=== PATIENT | male | born 1945 | race Caucasian/White ===

== ENCOUNTER 2016-12-17 19:00 | Inpatient (IN) | payer MEDICARE, BC ==
[2016-12-17] MEDS ORDERED: oxyCODONE/Acetaminophen 5 mg/325 mg Tablet PO SCH (21:30)
[2016-12-17] MEDS ORDERED: Ondansetron ODT 4 MG TAB SL PRN (23:22)
[2016-12-17] MEDS ORDERED: oxyCODONE/Acetaminophen 5 mg/325 mg Tablet PO PRN (23:22)
[2016-12-17] MEDS ORDERED: HYDROcodone/Acetaminophen 5/325 mg Tablet PO PRN ×2 (23:22)
[2016-12-17] MEDS ORDERED: Acetaminophen 325 MG TAB PO PRN (23:22)
[2016-12-17] MEDS ORDERED: Ondansetron HCl/PF 4 MG/2 ML Vial IVP PRN (23:22)
[2016-12-17 23:38] VITALS: BMI 34.2
[2016-12-18] MEDS ORDERED: Acetaminophen 325 MG TAB PO PRN ×2 (04:14)
[2016-12-18] MEDS ORDERED: Ondansetron ODT 4 MG TAB PO PRN (04:14)
[2016-12-18] MEDS ORDERED: PROVENTIL INHALER 6.7 G (200 INHALATIONS) INH PRN (04:14)
[2016-12-18] MEDS ORDERED: Ondansetron HCl/PF 4 MG/2 ML Vial IVP PRN (04:14)
--- NOTE | 2016-12-18 05:57 | HP ---
PRIMARY CARE PHYSICIAN: Dr. Porsche Berman CHIEF COMPLAINT: \\\\"My legs are swelling and I can't walk\\\\". HISTORY OF PRESENT ILLNESS: Mr. Lugo is a pleasant 71-year-old gentleman that has a history of an ischemic cardiomyopathy with an ejection fraction of 25% as well as coronary artery disease, obstru ctive sleep apnea and morbid obesity. He was actually just recently released from the hospital on 0 11/26/2016 for an exacerbation of CHF. He says when he left the hospital, he was not feeling the gre atest, but he was feeling better than when he came in and he was doing fairly well until about a wee k prior to admission when he began noticing swelling in his legs and feeling off balance. He says t hat he could not walk. He had previously been walking with a walker, but now was having extreme dif ficulty. He denies having chest pain, however, but does note increasing shortness of breath. He ca me to the emergency room because of his symptoms and his lab work looked relatively stable and his c hest x-ray demonstrated some cardiomegaly, but no overt heart failure. However, he has had some low er extremity edema and for this reason he is being admitted for CHF exacerbation. REVIEW OF SYSTEMS: CONSTITUTIONAL: There have been no fevers, chills, no night sweats, no weight loss. HEENT: No headache, no dizziness, no visual changes, no sore throat, rhinorrhea, neck pain, no rosalee opathy. PULMONARY: No hemoptysis, no cough, no wheezing. CARDIOVASCULAR: He denies any chest pain or PND. He has had increasing lower extremity edema. GASTROINTESTINAL: He denies any nausea, no vomiting, no change in bowels. GENITOURINARY: No urinary frequency, hematuria, no hesitancy. NEUROLOGIC: No focal weakness, numbness, no seizures. PSYCHIATRIC: No symptoms of anxiety or depression. SKIN AND INTEGUMENT: No skin changes. No rash. PAST MEDICAL HISTORY: Significant for ischemic cardiomyopathy with an ejection fraction of 25%, cor onary artery disease, obesity, obstructive sleep apnea, anxiety, and BPH. 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 ALLERGIES: VANCOMYCIN, BUDESNOMIDE, DOXYCYCLINE, FORMETEROL, LYRICA, PEROXIDE, LISINOPRIL, STATINS. FAMILY HISTORY: No history of any inheritable diseases. CURRENT MEDICATIONS: Trazodone 100 mg at bedtime, oxycodone 10/325 one q.4. p.r.n., torsemide 20 m g twice a day, Flomax 0.4 mg at bedtime, Klor-Con 20 mEq daily, Livalo 2 mg daily, Cozaar 50 mg at b edtime, albuterol nebs q.i.d., fenofibrate 145 mg daily, Zetia 10 mg daily, Cymbalta 30 mg twice vanesa ly, Coreg 25 mg twice a day, aspirin 325 mg daily, albuterol 2 puffs p.r.n. PHYSICAL EXAMINATION: GENERAL: He is alert. He is somewhat drowsy; however, he will awake long enough to answer a few qu estions, but then falls right back to sleep. VITAL SIGNS: Blood pressure was 155/87, heart rate 84, respiratory rate of 20, temperature is 98.8. HEENT: His pupils are equal, round, and reactive. Extraocular muscles are intact. His sclerae are anicteric. Throat; no erythema, no exudates. NECK: No adenopathy, no bruits. LUNGS: Essentially clear. There is no wheezing, no rales. CARDIOVASCULAR: He has a normal S1, S2. He has frequent PVCs, almost sounds like group beating wit h a grade 2/6 systolic murmur. ABDOMEN: Obese, it is soft, it is nontender, nondistended. Positive for bowel sounds. No rebound, no guarding. EXTREMITIES: He has got 1-2+ pitting edema, some varicose veins in his lower extremities. NEUROLOGICALLY: The exam is nonfocal. LABORATORY AND X-RAY FINDINGS: His EKG is sinus rhythm, the rate is in the 70s, he has a right bund le branch block, as well as a left anterior fascicular block and left ventricular hypertrophy. Ches t x-ray shows cardiomegaly as well as some increasing pulmonary vascular congestion. ASSESSMENT AND PLAN: Mr. Lugo is a 71-year-old gentleman who is being admitted for generalized we akness and increasing lower extremity edema. Likely his weakness is multifactorial due to the conge stive heart failure exacerbation, generalized deconditioning and obesity. He will be admitted to [facility]. We will continue his home medications and reassess him after he has had some treatment for his heart failure.
[2016-12-18] MEDS ORDERED: Furosemide 40 MG/4 ML VIAL SLOW IVP SCH (06:00)
[2016-12-18] MEDS: Aspirin 325 MG TAB PO SCH (08:49)
[2016-12-18] MEDS: Ezetimibe 10 MG TAB PO SCH (08:49)
[2016-12-18] MEDS: HYDROcodone/Acetaminophen 5/325 mg Tablet PO PRN ×2 (08:49→14:15)
[2016-12-18] MEDS: Carvedilol 25 MG TAB PO SCH ×2 (08:50→16:09)
[2016-12-18] MEDS: Enoxaparin Sodium 40 MG/0.4 ML SYRINGE SC SCH (08:50)
[2016-12-18] MEDS: Fenofibrate Nanocrystallized 145 MG TAB PO SCH (08:50)
[2016-12-18] MEDS ORDERED: PITAVASTATIN CALCIUM 2 MG PO SCH (09:00)
[2016-12-18] MEDS ORDERED: FLU VACC TS2017-18 (>65YR) 0.5 ML SYRINGE IM ONE (09:00)
[2016-12-18] MEDS: Furosemide 40 MG/4 ML VIAL SLOW IVP SCH ×2 (14:15→20:44)
[2016-12-18] MEDS ORDERED: oxyCODONE/Acetaminophen 5 mg/325 mg Tablet PO PRN (16:39)
--- NOTE | 2016-12-18 16:58 | PDOC.EVN ---
Event Note - Event Note Event Note: pt seen and examined. is SOB. will increase lasix dose. mmonitor symptoms and get cardio consult if needed
[2016-12-18] MEDS: Tamsulosin HCl 0.4 MG CAP PO SCH (20:41)
[2016-12-18] MEDS: Losartan Potassium 25 MG TAB PO SCH (20:41)
[2016-12-18] MEDS: traZODone HCl 50 MG TAB PO SCH (20:41)
[2016-12-18] MEDS: clonazePAM 1 MG TAB PO SCH (20:43)
[2016-12-19 05:15] LABS: #Eosinphils 0.1 thou/uL (0.0-0.7); #Lymphocytes 1.3 thou/uL (1.20-3.40); #Monocytes 0.6 thou/uL (0.11-0.59); #Neutrophils 3.4 thou/uL (1.40-6.50); %Basophils 0.5 % (0.0-1.0); %Eosinophils 2.5 % (0.0-10.0); %Lymphocytes 23.4 % (21.0-51.0); Hematocrit 40.4 % (42.0-52.0); Mean Platelet Volume 7.8 fL (7.4-10.4); Red Blood Cell (RBC) Count 4.47 mill/uL (4.70-6.10); White Blood Cell (WBC) Count 5.4 thou/uL (4.8-10.8)
[2016-12-19 05:31] LABS: Anion Gap 13 mmol/L (10-20); BUN (Urea Nitrogen) 20 mg/dL (8.4-25.7); Calc. Creatinine Clearance 112 mL/min (70-130); Calcium 9.7 mg/dL (7.8-10.44); Carbon Dioxide 29 mmol/L (23-31); Chloride 103 mmol/L (98-107); Estimated GFR-MDRD 69
[2016-12-19] MEDS: HYDROcodone/Acetaminophen 5/325 mg Tablet PO PRN ×3 (06:09→19:36)
[2016-12-19] MEDS: Furosemide 40 MG/4 ML VIAL SLOW IVP SCH ×3 (06:09→21:02)
[2016-12-19] MEDS: Aspirin 325 MG TAB PO SCH (08:39)
[2016-12-19] MEDS: Carvedilol 25 MG TAB PO SCH ×2 (08:39→16:27)
[2016-12-19] MEDS: Ezetimibe 10 MG TAB PO SCH (08:39)
[2016-12-19] MEDS: clonazePAM 1 MG TAB PO SCH ×2 (08:39→20:16)
[2016-12-19] MEDS: Fenofibrate Nanocrystallized 145 MG TAB PO SCH (08:39)
[2016-12-19] MEDS: Enoxaparin Sodium 40 MG/0.4 ML SYRINGE SC SCH (08:40)
[2016-12-19 10:41] LABS: Troponin I 0.054 ng/mL (< 0.028)
--- NOTE | 2016-12-19 13:43 | PDOC.PN ---
- Subjective Encounter Start Date: 12/19/16 Encounter Start Time: 09:00 Subjective: pt c/o diffuse body ache, especially in his back -: he looks less tachypneic -: he is on high dose of two kinds of opioids at home requesting RTC opioids as per RN - Objective Resuscitation Status: Resuscitation Status FULL:Full Resuscitation MAR Reviewed: Yes Vital Signs & Weight: Vital Signs (12 hours) Temp Pulse Pulse Pulse Resp BP BP 12/19/16 13:35 12/19/16 13:33 77 16 12/19/16 11:49 97.8 F 85 19 12/19/16 11:13 97.6 F 84 18 12/19/16 10:44 79 74 122/72 111/59 L 12/19/16 08:00 97.6 F 84 18 12/19/16 04:00 97.6 F 18 BP Pulse Ox 12/19/16 13:35 98 12/19/16 13:33 98 12/19/16 11:49 125/70 95 12/19/16 11:13 97 12/19/16 10:44 12/19/16 08:00 136/71 97 12/19/16 04:00 111/63 91 L Weight Admit Weight 267 lb Weight 265 lb 3 oz I&O: 12/18/16 12/19/16 12/20/16 06:59 06:59 06:59 Intake Total 500 400 Output Total 750 400 Balance -250 0 Result Diagrams: 12/19/16 04:12 12/19/16 04:12 EKG Reviewed by me: Yes Phys Exam - Physical Examination HEENT: PERRLA, moist MMs, sclera anicteric Respiratory: no wheezing b/ l crackles, improved Cardiovascular: RRR, no significant murmur, no rub Gastrointestinal: soft, non-tender, no distention, positive bowel sounds Musculoskeletal: edema present edema improved Neurological: non-focal, moves all 4 limbs b/l UE tremors present Psychiatric: A&O x 3 Skin: no rash Dx/Plan (1) Elevated troponin Code(s): R74.8 - ABNORMAL LEVELS OF OTHER SERUM ENZYMES Status: Acute (2) Opioid dependence Code(s): F11.20 - OPIOID DEPENDENCE, UNCOMPLICATED Status: Acute (3) CAD (coronary artery disease) Code(s): I25.10 - ATHSCL HEART DISEASE OF [place] CORONARY ARTERY W/O ANG PCTRS Status: Acute (4) Hypokalemia Code(s): E87.6 - HYPOKALEMIA Status: Acute (5) Systolic CHF, acute on chronic Code(s): I50.23 - ACUTE ON CHRONIC SYSTOLIC (CONGESTIVE) HEART FAILURE Status : Acute (6) Dyslipidemia Code(s): E78.5 - HYPERLIPIDEMIA, UNSPECIFIED Status: Chronic Comment: Continue Fenofibrate (7) GERD (gastroesophageal reflux disease) Code(s): K21.9 - GASTRO-ESOPHAGEAL REFLUX DISEASE WITHOUT ESOPHAGITIS Status: Chronic Comment: Continue Protonix 40mg po daily (8) Pill rolling tremors Code(s): R25.1 - TREMOR, UNSPECIFIED Status: Acute - Plan * . we will continue with current dose of lasix. will replace potassium. will get cardio consult. cont with present opioid regimen and monitor resp status closley. will get neuro consult for tremors. PT as tolerated
[2016-12-19] MEDS: Potassium Bicarbonate/Cit Ac 25 MEQ TAB PO SCH (16:32)
--- NOTE | 2016-12-19 17:35 | CON ---
DATE OF CONSULTATION: 12/19/2016 HISTORY OF PRESENT ILLNESS: The patient is a pleasant 71-year-old gentleman who presented with weak ness and dyspnea. Patient has a long history of coronary artery disease, status post coronary bypas s graft x3 in 2003. He has a history of ischemic cardiomyopathy and had placement of an automatic i mplantable cardiac defibrillator. He also has a history of defibrillator becoming infected. The sue thomas has been in the hospital on multiple occasions with congestive heart failure. He was most rec ently admitted 2 months ago with dyspnea. The patient previously had two stents placed recently at [facility]. The patient was in his usual state of health when he noted feeling extremely weak and short of breath and came for further evaluation. The patient denies having any chest discomfort . PAST MEDICAL HISTORY: Significant for; 1. Coronary artery disease. 2. Ischemic cardiomyopathy. 3. Hypertension. 4. Sleep apnea. 5. Dyslipidemia. 6. Benign prostatic hypertrophy. PAST SURGICAL HISTORY: He has had hernia surgery, cholecystectomy, iliac arterial aneurysm surgery and coronary bypass graft surgery. SOCIAL HISTORY: Nonsmoker. ALLERGIES: VANCOMYCIN, DOXYCYCLINE, LYRICA, LISINOPRIL, STATINS, PEROXIDE, DOXYCYCLINE and BUDESON YEFRI. FAMILY HISTORY: Positive family history of coronary artery disease. His father had myocardial infa rction. MEDICATIONS ON ADMISSION: Include Coreg 25 b.i.d., aspirin 325 daily, Cymbalta 30 daily, Cozaar 50 daily, KCL 20 daily, Flomax 0.4 daily, trazodone 100 mg at bedtime and Demadex 20 mg p.o. daily. REVIEW OF SYSTEMS: Ten-point system is noticeable for weakness and edema, otherwise unremarkable. PHYSICAL EXAMINATION: GENERAL: This is a middle-aged gentleman in no acute distress. VITAL SIGNS: Blood pressure was 111/59. NECK: No jugular venous distention. LUNGS: Coarse breath sounds bilateral. HEART: Regular rate and rhythm. Normal S1 and S2. ABDOMEN: Mildly distended. EXTREMITIES: Showed trace edema. SKIN: Warm and dry. NEUROLOGIC: Nonfocal. VASCULAR: Radial pulses are 2+. LABORATORY RESULTS: Sodium 142, potassium 3.3, chloride 103, bicarbonate 29, BUN 20, creatinine 0.1 07, glucose was 69 and troponin 0.054. White blood cell count 5.4, hemoglobin 12.9, hematocrit 40.4 and his platelets were 141. IMAGING DATA: EKG revealed normal sinus rhythm, right bundle branch block and left anterior fascicu lar block. IMPRESSION: 1. Congestive heart failure. 2. Ischemic cardiomyopathy. 3. Hypertension. 4. Morbid obesity. 5. Sleep apnea. 6. History of automatic implantable cardioverter-defibrillator placement. 7. Dyslipidemia. PLAN: This gentleman presents with mild congestive heart failure. He is being diuresed. We will f ollow this patient with you through his hospitalization.
[2016-12-19] MEDS: Tamsulosin HCl 0.4 MG CAP PO SCH (20:15)
[2016-12-19] MEDS: Losartan Potassium 25 MG TAB PO SCH (20:15)
[2016-12-19] MEDS: traZODone HCl 50 MG TAB PO SCH (20:16)
[2016-12-20] MEDS: HYDROcodone/Acetaminophen 5/325 mg Tablet PO PRN ×2 (04:39→14:27)
[2016-12-20] MEDS: Furosemide 40 MG/4 ML VIAL SLOW IVP SCH (05:15)
[2016-12-20] MEDS: clonazePAM 1 MG TAB PO SCH ×2 (09:13→20:22)
[2016-12-20] MEDS: Aspirin 325 MG TAB PO SCH (09:13)
[2016-12-20] MEDS: Carvedilol 25 MG TAB PO SCH ×2 (09:14→16:39)
[2016-12-20] MEDS: Potassium Bicarbonate/Cit Ac 25 MEQ TAB PO SCH ×2 (09:14→17:08)
[2016-12-20] MEDS: Fenofibrate Nanocrystallized 145 MG TAB PO SCH (09:15)
[2016-12-20] MEDS: Enoxaparin Sodium 40 MG/0.4 ML SYRINGE SC SCH (09:17)
[2016-12-20] MEDS: Ezetimibe 10 MG TAB PO SCH (09:17)
[2016-12-20 10:43] LABS: #Eosinphils 0.1 thou/uL (0.0-0.7); #Lymphocytes 0.9 thou/uL (1.20-3.40); #Monocytes 0.4 thou/uL (0.11-0.59); #Neutrophils 2.4 thou/uL (1.40-6.50); %Basophils 0.3 % (0.0-1.0); %Eosinophils 3.5 % (0.0-10.0); %Lymphocytes 23.2 % (21.0-51.0); %Monocytes 9.7 % (0.0-10.0); Hematocrit 39.3 % (42.0-52.0); Mean Platelet Volume 7.8 fL (7.4-10.4); Red Blood Cell (RBC) Count 4.32 mill/uL (4.70-6.10); White Blood Cell (WBC) Count 3.8 thou/uL (4.8-10.8)
[2016-12-20 11:00] LABS: Anion Gap 14 mmol/L (10-20); BUN (Urea Nitrogen) 20 mg/dL (8.4-25.7); Calc. Creatinine Clearance 120 mL/min (70-130); Calcium 9.5 mg/dL (7.8-10.44); Carbon Dioxide 29 mmol/L (23-31); Chloride 100 mmol/L (98-107); Estimated GFR-MDRD 77
[2016-12-20] MEDS ORDERED: Carbidopa/Levodopa 25-100 mg Tablet PO SCH (11:30)
--- NOTE | 2016-12-20 13:22 | PDOC.PN ---
- Subjective Encounter Start Date: 12/20/16 Encounter Start Time: 11:00 Subjective: pt states SOB better -: cardio input appreciated .pt states SOB better -: still has tremors, feels weak - Objective Resuscitation Status: Resuscitation Status FULL:Full Resuscitation Vital Signs & Weight: Vital Signs (12 hours) Temp Pulse Resp BP Pulse Ox 12/20/16 08:00 97.6 F 90 18 115/59 L 98 12/20/16 04:00 97.2 F L 73 18 128/68 95 12/20/16 01:53 94 L Weight Admit Weight 267 lb Weight 260 lb 3.2 oz I&O: 12/19/16 12/20/16 12/21/16 06:59 06:59 06:59 Intake Total 400 1985 Output Total 400 2260 Balance 0 -275 Result Diagrams: 12/20/16 10:21 12/20/16 10:21 Phys Exam - Physical Examination HEENT: PERRLA, moist MMs, sclera anicteric Neck: no nodes Respiratory: no wheezing, no rales, no rhonchi Gastrointestinal: soft, non-tender, no distention, positive bowel sounds Musculoskeletal: edema present Neurological: non-focal b/l UE pill rolling tremors unchanged Psychiatric: A&O x 3 Skin: no rash Dx/Plan (1) Elevated troponin Code(s): R74.8 - ABNORMAL LEVELS OF OTHER SERUM ENZYMES Status: Acute (2) Opioid dependence Code(s): F11.20 - OPIOID DEPENDENCE, UNCOMPLICATED Status: Acute (3) CAD (coronary artery disease) Code(s): I25.10 - ATHSCL HEART DISEASE OF [place] CORONARY ARTERY W/O ANG PCTRS Status: Acute (4) Hypokalemia Code(s): E87.6 - HYPOKALEMIA Status: Acute (5) Systolic CHF, acute on chronic Code(s): I50.23 - ACUTE ON CHRONIC SYSTOLIC (CONGESTIVE) HEART FAILURE Status : Acute (6) Dyslipidemia Code(s): E78.5 - HYPERLIPIDEMIA, UNSPECIFIED Status: Chronic Comment: Continue Fenofibrate (7) GERD (gastroesophageal reflux disease) Code(s): K21.9 - GASTRO-ESOPHAGEAL REFLUX DISEASE WITHOUT ESOPHAGITIS Status: Chronic Comment: Continue Protonix 40mg po daily (8) Pill rolling tremors Code(s): R25.1 - TREMOR, UNSPECIFIED Status: Acute - Plan we will switch lasix to PO -: awiat neuro eval. may need rehab -: monitor potassium and replace * .
[2016-12-20] MEDS: Furosemide 40 MG TAB PO SCH (13:33)
--- NOTE | 2016-12-20 16:38 | PDOC.CTH ---
<Samantha De La Cruz - Last Filed: 12/20/16 16:34> Cardiology Progress Note - Subjective The pt was seen and examined. No overnight events. No cardiac complaints. He complains of Chronic back pain. - Objective Vital Signs Temp Pulse Resp BP BP Pulse Ox 12/20/16 16:28 97.8 F 78 18 115/74 93 L 12/20/16 12:15 98.4 F 78 18 133/57 L 98 12/20/16 08:00 97.6 F 90 18 115/59 L 98 Admit Weight 267 lb Weight 260 lb 3.2 oz 12/19/16 12/20/16 12/21/16 06:59 06:59 06:59 Intake Total 400 1985 Output Total 400 2260 Balance 0 -275 - Physical Examination General/Neuro: alert & oriented x3 Neck: no JVD present Lungs: CTA Heart: RRR Abdomen: soft Extremities: other: (No edema) - Telemetry Telemetry Rhythm: SR 70s - Labs Result Diagrams: 12/20/16 10:21 12/20/16 10:21 Troponin/CKMB CK-MB (CK-2) 2.4 ng/mL (0-6.6) 12/17/16 19:40 Troponin I 0.054 ng/mL (< 0.028) H 12/19/16 10:04 - Assessment/Plan 1. Acute on Chronic systolic HF - stable with current medication; On 1LNC; Lasix was changed from IV to PO; cont. monitor 2. CAD with Hx of CABG x3 in 2004 - on BBlocker and ASA; cont. monitor on tele 3. HTN - stable with current medication 4. Dyslipidemia - on statin and Zetia 5. GERD - On Protonix PO 6. Chronic Back pain - PT/OT consult; managed by PCP MAR reviewed Review of Systems - Review of Systems Constitutional: reports: no symptoms reported EENTM: reports: no symptoms reported Respiratory: reports: SOB with excertion Cardiac (ROS): reports: no symptoms reported ABD/GI: reports: no symptoms reported : reports: no symptoms reported, see HPI Musculoskeletal: reports: back pain <Altaf Kruger - Last Filed: 12/20/16 20:03> Cardiology Progress Note - Objective Vital Signs Temp Pulse Resp BP BP Pulse Ox 12/20/16 16:28 97.8 F 78 18 115/74 93 L 12/20/16 12:15 98.4 F 78 18 133/57 L 98 Admit Weight 267 lb Weight 260 lb 3.2 oz 12/19/16 12/20/16 12/21/16 06:59 06:59 06:59 Intake Total 400 1985 Output Total 400 2260 380 Balance 0 -275 -380 - Labs Result Diagrams: 12/20/16 10:21 12/20/16 10:21 Troponin/CKMB CK-MB (CK-2) 2.4 ng/mL (0-6.6) 12/17/16 19:40 Troponin I 0.054 ng/mL (< 0.028) H 12/19/16 10:04 - Assessment/Plan Pt. seen and evaluated. i agree with the A/P by the SCRAP SEPARATOR. The only complaint is from the family that he has not received his nebulizer treatments ond his clonipin.
[2016-12-20] MEDS: Losartan Potassium 25 MG TAB PO SCH (20:21)
[2016-12-20] MEDS: Carbidopa/Levodopa 25-100 mg Tablet PO SCH (20:21)
[2016-12-20] MEDS: traZODone HCl 50 MG TAB PO SCH (20:22)
[2016-12-20] MEDS: Tamsulosin HCl 0.4 MG CAP PO SCH (20:22)
[2016-12-21] MEDS: HYDROcodone/Acetaminophen 5/325 mg Tablet PO PRN (03:35)
[2016-12-21] MEDS: Aspirin 325 MG TAB PO SCH (09:22)
[2016-12-21] MEDS: Ezetimibe 10 MG TAB PO SCH (09:22)
[2016-12-21] MEDS: Fenofibrate Nanocrystallized 145 MG TAB PO SCH (09:22)
[2016-12-21] MEDS: Carvedilol 25 MG TAB PO SCH ×2 (09:23→17:59)
[2016-12-21] MEDS: Potassium Bicarbonate/Cit Ac 25 MEQ TAB PO SCH ×2 (09:24→18:00)
[2016-12-21] MEDS: Furosemide 40 MG TAB PO SCH ×2 (09:24→13:55)
[2016-12-21] MEDS: Carbidopa/Levodopa 25-100 mg Tablet PO SCH ×2 (09:24→20:27)
[2016-12-21] MEDS: clonazePAM 1 MG TAB PO SCH ×2 (09:24→20:28)
[2016-12-21] MEDS: Enoxaparin Sodium 40 MG/0.4 ML SYRINGE SC SCH (09:25)
[2016-12-21] MEDS: PITAVASTATIN CALCIUM 2 MG PO SCH (09:26)
--- NOTE | 2016-12-21 10:13 | PDOC.PN ---
- Subjective Encounter Start Date: 12/21/16 Encounter Start Time: 09:05 Subjective: pt is c/o diffuse pain. SOB improved -: service delivery management consultant input appreciated -: able to abmbulate but still tremulous - Objective Resuscitation Status: Resuscitation Status FULL:Full Resuscitation Vital Signs & Weight: Vital Signs (12 hours) Temp Pulse Resp BP Pulse Ox 12/21/16 04:00 97.6 F 62 20 94/54 L 97 12/21/16 00:25 92 L 12/21/16 00:00 97.7 F 76 18 128/58 L 97 Weight Admit Weight 267 lb Weight 259 lb 4.8 oz I&O: 12/20/16 12/21/16 12/22/16 06:59 06:59 06:59 Intake Total 1985 820 Output Total 2260 930 Balance -275 -110 Result Diagrams: 12/20/16 10:21 12/20/16 10:21 Phys Exam - Physical Examination HEENT: PERRLA, moist MMs Respiratory: no wheezing, no rales Cardiovascular: RRR, no significant murmur, no rub Gastrointestinal: soft, non-tender, no distention, positive bowel sounds Musculoskeletal: no edema Neurological: non-focal, moves all 4 limbs tremor unchanged Psychiatric: A&O x 3 Skin: no rash Dx/Plan (1) Elevated troponin Code(s): R74.8 - ABNORMAL LEVELS OF OTHER SERUM ENZYMES Status: Acute (2) Opioid dependence Code(s): F11.20 - OPIOID DEPENDENCE, UNCOMPLICATED Status: Acute (3) CAD (coronary artery disease) Code(s): I25.10 - ATHSCL HEART DISEASE OF [place] CORONARY ARTERY W/O ANG PCTRS Status: Acute (4) Hypokalemia Code(s): E87.6 - HYPOKALEMIA Status: Acute (5) Systolic CHF, acute on chronic Code(s): I50.23 - ACUTE ON CHRONIC SYSTOLIC (CONGESTIVE) HEART FAILURE Status : Acute (6) Dyslipidemia Code(s): E78.5 - HYPERLIPIDEMIA, UNSPECIFIED Status: Chronic Comment: Continue Fenofibrate (7) GERD (gastroesophageal reflux disease) Code(s): K21.9 - GASTRO-ESOPHAGEAL REFLUX DISEASE WITHOUT ESOPHAGITIS Status: Chronic Comment: Continue Protonix 40mg po daily (8) Pill rolling tremors Code(s): R25.1 - TREMOR, UNSPECIFIED Status: Acute - Plan will continue with meds. PT to ambulate. -: pt has chr pain, on multiple narcotics. -: advised to see outpt pain specialist for adjustment of narcotics -: continue sinemet for tremors and monitor response * .
[2016-12-21] MEDS: oxyCODONE/Acetaminophen 5 mg/325 mg Tablet PO PRN (15:31)
--- NOTE | 2016-12-21 18:49 | PDOC.CTH ---
<Samantha De La Cruz - Last Filed: 12/21/16 18:46> Cardiology Progress Note - Subjective The pt was seen and examined. No overnight events. No cardiac complaints. The pt still complains of his chronic back pain. He stated he has seen pain specialist as outpt. - Objective Vital Signs Temp Pulse Resp BP BP Pulse Ox 12/21/16 16:18 97.5 F L 75 18 132/61 12/21/16 13:00 98.3 F 82 20 107/57 L 12/21/16 12:00 98.3 F 82 18 130/58 L 12/21/16 08:00 98.4 F 72 16 126/67 96 12/21/16 07:40 97.5 F L 75 18 96 Admit Weight 267 lb Weight 259 lb 4.8 oz 12/20/16 12/21/16 12/22/16 06:59 06:59 06:59 Intake Total 1985 820 600 Output Total 2260 930 1650 Balance -275 -110 -1050 - Physical Examination General/Neuro: alert & oriented x3 Neck: no JVD present Lungs: CTA (diminished at bases) Heart: RRR Abdomen: soft Extremities: other: (1+ pitting edema in bilat lower ext) - Telemetry Telemetry Rhythm: SR 80s - Labs Result Diagrams: 12/20/16 10:21 12/20/16 10:21 Troponin/CKMB CK-MB (CK-2) 2.4 ng/mL (0-6.6) 12/17/16 19:40 Troponin I 0.054 ng/mL (< 0.028) H 12/19/16 10:04 - Assessment/Plan 1. Acute on Chronic systolic HF - stable with current medication; still on 1LNC ; Lasix was changed from IV to PO; cont. monitor 2. CAD with Hx of CABG x3 in 2003 - on BBlocker and ASA; cont. monitor on tele 3. HTN - stable with current medication 4. Dyslipidemia - on statin and Zetia 5. GERD - On Protonix PO 6. Chronic Back pain - PT/OT consult; managed by PCP MAR reviewed Review of Systems - Review of Systems Constitutional: reports: no symptoms reported EENTM: reports: no symptoms reported Respiratory: reports: no symptoms reported Cardiac (ROS): reports: no symptoms reported ABD/GI: reports: no symptoms reported : reports: no symptoms reported Musculoskeletal: reports: see HPI <Altaf Kruger - Last Filed: 12/21/16 22:24> Cardiology Progress Note - Objective Vital Signs Temp Pulse Resp BP BP 12/21/16 16:18 97.5 F L 75 18 132/61 12/21/16 16:00 97.5 F L 75 18 132/61 12/21/16 13:00 98.3 F 82 20 107/57 L 12/21/16 12:00 98.3 F 82 18 130/58 L Admit Weight 267 lb Weight 259 lb 4.8 oz 12/20/16 12/21/16 12/22/16 06:59 06:59 06:59 Intake Total 1985 820 600 Output Total 2260 930 1650 Balance -275 110 1050 - Labs Result Diagrams: 12/20/16 10:21 12/20/16 10:21 Troponin/CKMB CK-MB (CK-2) 2.4 ng/mL (0-6.6) 12/17/16 19:40 Troponin I 0.054 ng/mL (< 0.028) H 12/19/16 10:04 - Assessment/Plan Pt. seen and evaluated. i agree with the A/P by the DRILL RUNNER
[2016-12-21] MEDS: Losartan Potassium 25 MG TAB PO SCH (20:28)
[2016-12-21] MEDS: Tamsulosin HCl 0.4 MG CAP PO SCH (20:29)
[2016-12-21] MEDS: traZODone HCl 50 MG TAB PO SCH (20:29)
[2016-12-22] MEDS: oxyCODONE/Acetaminophen 5 mg/325 mg Tablet PO PRN ×2 (05:10→14:41)
[2016-12-22] MEDS: Fenofibrate Nanocrystallized 145 MG TAB PO SCH (08:25)
[2016-12-22] MEDS: Ezetimibe 10 MG TAB PO SCH (08:25)
[2016-12-22] MEDS: Carvedilol 25 MG TAB PO SCH ×2 (08:25→16:27)
[2016-12-22] MEDS: Carbidopa/Levodopa 25-100 mg Tablet PO SCH (08:26)
[2016-12-22] MEDS: clonazePAM 1 MG TAB PO SCH (08:26)
[2016-12-22] MEDS: Furosemide 40 MG TAB PO SCH ×2 (08:26→14:41)
[2016-12-22] MEDS: Aspirin 325 MG TAB PO SCH (08:26)
[2016-12-22] MEDS: Enoxaparin Sodium 40 MG/0.4 ML SYRINGE SC SCH (08:29)
[2016-12-22] MEDS: PITAVASTATIN CALCIUM 2 MG PO SCH (08:36)
[2016-12-22] MEDS: Potassium Bicarbonate/Cit Ac 25 MEQ TAB PO SCH ×2 (08:37→16:27)
--- NOTE | 2016-12-22 14:56 | PDOC.PN ---
- Subjective Encounter Start Date: 12/22/16 Encounter Start Time: 14:54 Patient seen at bedside. No overnight events, no new complaints. - Objective Resuscitation Status: Resuscitation Status FULL:Full Resuscitation MAR Reviewed: Yes Vital Signs & Weight: Vital Signs (12 hours) Temp Pulse Resp BP Pulse Ox 12/22/16 12:35 96.8 F L 76 18 101/52 L 98 12/22/16 09:05 97.5 F L 73 20 12/22/16 08:00 96.4 F L 78 16 119/56 L 95 12/22/16 04:50 97.5 F L 73 20 115/59 L 97 Weight Admit Weight 267 lb Weight 260 lb 11.2 oz I&O: 12/21/16 12/22/16 12/23/16 06:59 06:59 06:59 Intake Total 820 840 Output Total 930 2750 Balance -110 -1910 Result Diagrams: 12/20/16 10:21 12/20/16 10:21 Phys Exam - Physical Examination Constitutional: NAD HEENT: moist MMs Neck: no JVD Respiratory: no rales Cardiovascular: no significant murmur Gastrointestinal: non-tender Musculoskeletal: no edema, pulses present Neurological: moves all 4 limbs Psychiatric: normal affect, A&O x 3 Dx/Plan (1) Opioid dependence Code(s): F11.20 - OPIOID DEPENDENCE, UNCOMPLICATED Status: Acute (2) Pill rolling tremors Code(s): R25.1 - TREMOR, UNSPECIFIED Status: Acute (3) CAD (coronary artery disease) Code(s): I25.10 - ATHSCL HEART DISEASE OF [place] CORONARY ARTERY W/O ANG PCTRS Status: Acute (4) Ischemic cardiomyopathy Code(s): I25.5 - ISCHEMIC CARDIOMYOPATHY Status: Chronic Comment: EF 25%, compensated - Plan cont current plan of care, PT/OT, social media manager, out of bed/ambulate * Continue with current management. * Sinemet for tremors * Transfer to Rehab
[2016-12-22 16:42] VITALS: BP 119/74; TEMP 98.4
--- NOTE | 2016-12-22 17:01 | DIS ---
DATE OF ADMISSION: 12/18/2016 DATE OF DISCHARGE: 12/22/2016 DISCHARGE DISPOSITION: To inpatient rehabilitation. DISCHARGE FOLLOWUP: With Dr. Berman once discharged from inpatient rehabilitation. DISCHARGE DIAGNOSES: 1. Acute systolic congestive heart failure. 2. Ischemic cardiomyopathy. 3. Coronary artery disease. 4. Hypertension. 5. Sleep apnea. 6. Dyslipidemia. 7. Chronic back pain. 8. Tremor. DISCHARGE MEDICATIONS: 1. Albuterol p.r.n. 2. Aspirin 325 mg p.o. daily. 3. Coreg 25 mg p.o. b.i.d. 4. Cymbalta 30 mg p.o. t.i.d. 5. Zetia 10 mg p.o. daily. 6. Tricor 145 mg p.o. daily. 7. DuoNeb t.i.d. p.r.n. 8. Cozaar 50 mg p.o. at bedtime. 9. Morphine sulfate ER 50 mg p.o. b.i.d. 10. Livalo 2 mg p.o. daily. 11. Tamsulosin 0.4 mg p.o. at bedtime. 12. Demadex 20 mg p.o. b.i.d. 13. Klonopin 1 mg p.o. b.i.d. 14. Percocet p.r.n. 15. Trazodone 100 mg p.o. at bedtime. 16. Sinemet one tablet p.o. b.i.d. This is new. INPATIENT CONSULTANTS: 1. Dr. Albarado, Cardiology. 2. Dr. Garcia, Neurology. INPATIENT PROCEDURES: None. INPATIENT RADIOGRAPHIC EXAMINATIONS: Chest x-ray which revealed cardiomegaly, perhaps early congest ion. BRIEF HOSPITAL COURSE: Mr. Andrew Lugo is a 71-year-old male who presented to the emergency room complaining of leg swelling and inability to walk. The patient has had multiple admissions in [facility] for CHF exacerbations. He stated that he was having difficulty walking, but no chest pain, but did not know increased dyspnea on exertion. He was subsequently admitted for CHF exacerbation. He was given IV diuretics. He was evaluated by Cardiology who stated to continue with diuresis. The patient was doing much better after diuresis. He did have a noticeable tremor, which was evaluated by Neurology who started him on Sinemet. He will continue this one tablet p.o. b.i.d. He is doing much better from a neurological perspective. He is to improve from a respiratory standpoint. He wa s noted to be considerably weak and was evaluated by physical therapy who recommended inpatient reha b. Inpatient rehab accepted the patient, he will be transferred there later today in stable conditi on. DISCHARGE DIET: Heart healthy. ACTIVITY: As tolerated. RESTRICTIONS: None. ALLERGIES: VANCOMYCIN, SYMBICORT, DOXYCYCLINE, HYDROGEN PEROXIDE, LISINOPRIL, LYRICA, STATIN and PE ROXIDE. CODE STATUS: FULL CODE. PLAN: I have explained all this to the patient at bedside. He is agreeable to the plan of discharg e. All questions have been answered. Please note the patient is a very high risk for readmission d ue to his multiple medical comorbidities as well as lack of compliance. He will be transferred to npatient rehabilitation later today in stable condition.
== END 2016-12-22 17:28 | DRG 292 ==
LOC: ERS 19:00 → 2NO 20:30
PROVIDERS: ADMIT Internal Medicine; ATTEND Internal Medicine
DX: I11.0 Hypertensive heart disease with heart failure (principal); I45.2 Bifascicular block; Z95.1 Presence of aortocoronary bypass graft; F11.20 Opioid dependence, uncomplicated; J44.9 Chronic obstructive pulmonary disease, unspecified; E66.01 Morbid (severe) obesity due to excess calories; I25.5 Ischemic cardiomyopathy; I25.10 Atherosclerotic heart disease of native coronary artery without angina pectoris; G47.33 Obstructive sleep apnea (adult) (pediatric); Z68.33 Body mass index [BMI] 33.0-33.9, adult; N40.0 Benign prostatic hyperplasia without lower urinary tract symptoms; F41.9 Anxiety disorder, unspecified; Z88.1 Allergy status to other antibiotic agents; Z88.8 Allergy status to other drugs, medicaments and biological substances; Z79.82 Long term (current) use of aspirin; I50.23 Acute on chronic systolic (congestive) heart failure; G89.29 Other chronic pain; M54.9 Dorsalgia, unspecified; R25.1 Tremor, unspecified; E87.6 Hypokalemia; K21.9 Gastro-esophageal reflux disease without esophagitis; I25.2 Old myocardial infarction; Z95.0 Presence of cardiac pacemaker; D50.9 Iron deficiency anemia, unspecified; F32.9 Major depressive disorder, single episode, unspecified; I08.1 Rheumatic disorders of both mitral and tricuspid valves; E78.00 Pure hypercholesterolemia, unspecified
CPT/HCPCS: 36415; 80048; 83880; 84484; 85025; 90471; 90682; 93798; A4216; G0008; G8978-GP-CL; G8979-GP-CI; G8987-GO-CK; G8988-GO-CI; J1650; J1940; Q2036

== ENCOUNTER 2017-02-23 15:35 | Observation (INO) | payer MEDICARE, BC, OTHER ==
[2017-02-23] MEDS ORDERED: Morphine 4 MG/ML VIAL ONE ×2 (16:18→19:38)
[2017-02-23 16:25] LABS: #Monocytes 0.6 thou/uL (0.11-0.59); #Neutrophils 3.5 thou/uL (1.40-6.50); %Basophils 0.2 % (0.0-1.0); %Eosinophils 0.9 % (0.0-10.0); %Lymphocytes 18.7 % (21.0-51.0); Hematocrit 42.5 % (42.0-52.0); Mean Platelet Volume 8.6 fL (7.4-10.4); Red Blood Cell (RBC) Count 4.55 mill/uL (4.70-6.10); White Blood Cell (WBC) Count 5.1 thou/uL (4.8-10.8)
[2017-02-23 16:30] LABS: Prothrombin Time 14.2 SEC (12.0-14.7)
[2017-02-23 16:36] LABS: PTT 32.8 SEC (22.9-36.1)
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
[2017-02-23 16:55] LABS: ALT (SGPT) 65 U/L (8-55); AST (SGOT) 69 U/L (5-34); Alkaline Phosphatase 78 U/L (40-150); Anion Gap 12 mmol/L (10-20); BUN (Urea Nitrogen) 25 mg/dL (8.4-25.7); Bilirubin, Total 0.5 mg/dL (0.2-1.2); Calc. Creatinine Clearance 0 mL/min (70-130); Calcium 9.5 mg/dL (7.8-10.44); Carbon Dioxide 26 mmol/L (23-31); Chloride 104 mmol/L (98-107); Estimated GFR-MDRD 80; Globulin 3.4 g/dL (2.4-3.5); Protein, Total 7.1 g/dL (5.8-8.1)
[2017-02-23 17:00] LABS: Troponin I 0.032 ng/mL (< 0.028)
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
[2017-02-23] MEDS ORDERED: ISOVUE-370 76%-LOCM 1 ML ONE (17:23)
[2017-02-23] MEDS ORDERED: Dextrose 50% Abboject 50 ML SYRINGE ONE (19:38)
[2017-02-23] MEDS ORDERED: Insulin Regular 300 UNITS/3 ML VIAL ONE (19:38)
[2017-02-23] MEDS ORDERED: Adacel (T-DAP) 0.5 ML VIAL ONE (19:41)
[2017-02-23] MEDS ORDERED: Ketorolac Tromethamine 30 MG/ML VIAL ONE (20:22)
[2017-02-23 21:28] LABS: Troponin I 0.035 ng/mL (< 0.028)
[2017-02-23] MEDS ORDERED: Ondansetron ODT 4 MG TAB PO PRN (22:35)
[2017-02-23] MEDS ORDERED: Dextrose 50% Abboject 50 ML SYRINGE SLOW IVP PRN (22:35)
[2017-02-23] MEDS ORDERED: Ondansetron HCl/PF 4 MG/2 ML Vial IVP PRN (22:35)
[2017-02-23] MEDS ORDERED: Rib Fracture Protocol PO SCH (22:35)
[2017-02-23] MEDS ORDERED: Dextrose 5% in Water 1,000 ML IV PRN (22:35)
[2017-02-23] MEDS ORDERED: Cyclobenzaprine 10 MG TAB PO PRN (23:00)
[2017-02-23 23:03] VITALS: BMI 32.3
[2017-02-23] MEDS ORDERED: Gabapentin 100 MG CAP PO SCH (23:15)
[2017-02-23] MEDS: Ibuprofen 600 MG TAB PO SCH (23:24)
[2017-02-23] MEDS: traMADol HCl 50 MG TAB PO SCH (23:25)
[2017-02-23] MEDS ORDERED: Senokot S 8.6-50 MG TAB PO SCH (23:30)
[2017-02-23] MEDS ORDERED: Famotidine 20 MG TAB PO SCH (23:30)
[2017-02-23] MEDS: Famotidine 20 MG TAB PO SCH (23:30)
[2017-02-23] MEDS: Senokot S 8.6-50 MG TAB PO SCH (23:30)
[2017-02-23] MEDS ORDERED: Acetaminophen 500 MG TAB PO SCH (23:59)
[2017-02-24] MEDS ORDERED: Morphine 4 MG/ML VIAL SLOW IVP PRN (01:37)
[2017-02-24] MEDS: Morphine 4 MG/ML VIAL SLOW IVP PRN ×3 (01:44→22:17)
[2017-02-24] MEDS: HYDROcodone/Acetaminophen 10/325 mg Tablet PO SCH ×6 (04:31→20:37)
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
[2017-02-24 06:24] LABS: #Lymphocytes 0.9 thou/uL (1.20-3.40); #Monocytes 0.5 thou/uL (0.11-0.59); #Neutrophils 3.2 thou/uL (1.40-6.50); %Basophils 0.1 % (0.0-1.0); %Eosinophils 0.9 % (0.0-10.0); %Lymphocytes 19.2 % (21.0-51.0); Hematocrit 38.7 % (42.0-52.0); Mean Platelet Volume 8.4 fL (7.4-10.4); Red Blood Cell (RBC) Count 4.13 mill/uL (4.70-6.10); White Blood Cell (WBC) Count 4.6 thou/uL (4.8-10.8)
[2017-02-24 06:26] LABS: Anion Gap 10 mmol/L (10-20); BUN (Urea Nitrogen) 22 mg/dL (8.4-25.7); Calc. Creatinine Clearance 150 mL/min (70-130); Calcium 8.9 mg/dL (7.8-10.44); Carbon Dioxide 27 mmol/L (23-31); Chloride 106 mmol/L (98-107); Estimated GFR-MDRD Greater than 90; Magnesium 2.2 mg/dL (1.6-2.6); Phosphorus 3.1 mg/dL (2.3-4.7)
[2017-02-24] MEDS: Ibuprofen 600 MG TAB PO SCH ×3 (07:09→19:31)
[2017-02-24] MEDS: traMADol HCl 50 MG TAB PO SCH ×3 (07:09→19:31)
[2017-02-24] MEDS: Senokot S 8.6-50 MG TAB PO SCH ×2 (08:46→20:37)
[2017-02-24] MEDS: Gabapentin 100 MG CAP PO SCH ×3 (08:47→20:37)
[2017-02-24] MEDS: Famotidine 20 MG TAB PO SCH ×2 (08:47→20:37)
[2017-02-24] MEDS ORDERED: PROVENTIL INHALER 6.7 G (200 INHALATIONS) INH PRN (17:15)
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
[2017-02-24] MEDS ORDERED: hydrALAZINE 20 MG/ML VIAL SLOW IVP PRN (19:12)
[2017-02-24] MEDS: clonazePAM 1 MG TAB PO SCH (20:37)
[2017-02-24] MEDS ORDERED: Losartan Potassium 25 MG TAB PO SCH (21:00)
[2017-02-24] MEDS ORDERED: Tamsulosin HCl 0.4 MG CAP PO SCH (21:00)
[2017-02-24] MEDS: Diclofenac Sodium 25 mg Tablet PO SCH (22:17)
[2017-02-25] MEDS: Ibuprofen 600 MG TAB PO SCH ×3 (00:59→06:53)
[2017-02-25] MEDS: traMADol HCl 50 MG TAB PO SCH ×3 (00:59→06:53)
[2017-02-25] MEDS: HYDROcodone/Acetaminophen 10/325 mg Tablet PO SCH ×2 (00:59→09:10)
[2017-02-25] MEDS: Morphine 4 MG/ML VIAL SLOW IVP PRN (06:51)
[2017-02-25] MEDS ORDERED: Carvedilol 25 MG TAB PO SCH (08:00)
[2017-02-25 08:29] VITALS: TEMP 98.5
[2017-02-25] MEDS ORDERED: Aspirin 325 MG TAB PO SCH (09:00)
[2017-02-25] MEDS ORDERED: Potassium Chloride 20 MEQ TAB PO SCH (09:00)
[2017-02-25] MEDS ORDERED: Polyethylene Glycol 3350 17 GM Packet PO SCH (09:00)
[2017-02-25] MEDS ORDERED: TIOTROPIUM BR INH SCH (09:00)
[2017-02-25] MEDS ORDERED: OLODATEROL HCL INH SCH (09:00)
[2017-02-25] MEDS ORDERED: Furosemide 40 MG TAB PO SCH (09:00)
[2017-02-25] MEDS ORDERED: Ezetimibe 10 MG TAB PO SCH (09:00)
[2017-02-25] MEDS ORDERED: PITAVASTATIN CALCIUM 2 MG PO SCH (09:00)
[2017-02-25] MEDS: Famotidine 20 MG TAB PO SCH (09:08)
[2017-02-25] MEDS: Senokot S 8.6-50 MG TAB PO SCH (09:09)
[2017-02-25] MEDS: Gabapentin 100 MG CAP PO SCH (09:10)
[2017-02-25] MEDS: clonazePAM 1 MG TAB PO SCH (09:10)
[2017-02-25] MEDS: Diclofenac Sodium 25 mg Tablet PO SCH (09:11)
[2017-02-25 13:53] VITALS: BP 155/85
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
== END 2017-02-25 12:11 | disposition home health service (06) ==
LOC: ERS 15:35 → 2SW 20:40
PROVIDERS: ADMIT Surgery; ATTEND Surgery
DX: S22.32XA Fracture of one rib, left side, initial encounter for closed fracture (principal); G89.11 Acute pain due to trauma; I25.5 Ischemic cardiomyopathy; I11.0 Hypertensive heart disease with heart failure; I50.9 Heart failure, unspecified; G47.33 Obstructive sleep apnea (adult) (pediatric); K21.9 Gastro-esophageal reflux disease without esophagitis; N40.0 Benign prostatic hyperplasia without lower urinary tract symptoms; M54.9 Dorsalgia, unspecified; G89.29 Other chronic pain; D64.9 Anemia, unspecified; I25.10 Atherosclerotic heart disease of native coronary artery without angina pectoris; E87.5 Hyperkalemia; R77.8 Other specified abnormalities of plasma proteins; V49.40XA Driver injured in collision with unspecified motor vehicles in traffic accident, initial encounter; Z79.82 Long term (current) use of aspirin; Z79.899 Other long term (current) drug therapy; Z88.1 Allergy status to other antibiotic agents; Z88.8 Allergy status to other drugs, medicaments and biological substances; Z98.61 Coronary angioplasty status; Z95.1 Presence of aortocoronary bypass graft; Z96.652 Presence of left artificial knee joint; Z90.49 Acquired absence of other specified parts of digestive tract; Z87.891 Personal history of nicotine dependence
CPT/HCPCS: 70450; 71010; 71260; 72125; 72170; 74177; 80048; 80053; 82553; 83735; 83880; 84100; 84132; 84484 ×2; 85025 ×2; 85610; 85730; 93005; 94640 ×3; 96361; 96374; 96375; 96376 ×3; 97139 ×3; 97530; 99285; G0378; G8978; G8979; G8980; G8987; G8988; G8989; 36415; 90715; J1815; J1885; J2270; J7620

== ENCOUNTER 2017-03-18 18:25 | Emergency (ER) | payer MEDICARE, BC ==
[2017-03-18] MEDS ORDERED: Morphine 4 MG/ML VIAL ONE (20:01)
[2017-03-18 21:15] LABS: Hemoglobin 13.1 g/dL (14.0-18.0); Mean Corpuscular HGB CONC 32.3 g/dL (32.0-36.0); Mean Corpuscular Volume 96.1 fl (80.0-94.0); Red Blood Cell (RBC) Count 4.23 mill/uL (4.70-6.10); White Blood Cell (WBC) Count 4.6 thou/uL (4.8-10.8)
[2017-03-18 21:20] LABS: PTT 35.5 SEC (22.9-36.1); Prothrombin Time 13.5 SEC (12.0-14.7)
[2017-03-18 21:28] LABS: #Basophils 0.1 thou/uL (0.0-0.2); #Eosinphils 0.1 thou/uL (0.0-0.7); #Lymphocytes 1.1 thou/uL (1.20-3.40); #Monocytes 0.5 thou/uL (0.11-0.59); #Neutrophils 2.9 thou/uL (1.40-6.50); %Basophils 1.3 % (0.0-1.0); %Eosinophils 2.1 % (0.0-10.0); %Monocytes 9.8 % (0.0-10.0); %Neutrophils 63.8 % (42.0-75.0); Mean Platelet Volume 7.4 fL (7.4-10.4); Platelet Count 112 thou/uL (130-400)
[2017-03-18 21:29] LABS: PLT Morphology Comment Appears Decreased
[2017-03-18 21:35] LABS: ALT (SGPT) 49 U/L (8-55); AST (SGOT) 37 U/L (5-34); Albumin 3.5 g/dL (3.4-4.8); Alkaline Phosphatase 105 U/L (40-150); Anion Gap 11 mmol/L (10-20); BUN (Urea Nitrogen) 17 mg/dL (8.4-25.7); Bilirubin, Total 0.5 mg/dL (0.2-1.2); Calc. Creatinine Clearance 0 mL/min (70-130); Calcium 9.8 mg/dL (7.8-10.44); Carbon Dioxide 28 mmol/L (23-31); Chloride 104 mmol/L (98-107); Estimated GFR-MDRD Greater than 90; Globulin 2.7 g/dL (2.4-3.5); Glucose 82 mg/dL (80-115); Potassium 4.2 mmol/L (3.5-5.1); Protein, Total 6.2 g/dL (5.8-8.1); Sodium 139 mmol/L (136-145)
[2017-03-18 23:35] LABS: Bilirubin Negative (Negative); Blood, Urine Negative (Negative); Clarity CLEAR (Clear); Glucose, Urine (Dipstick) Negative (Negative); Leukocyte Negative (Negative); Nitrite Negative (Negative); Protein, Urine (Dipstick) Negative (Neg-Trace); Urobilinogen 0.2 mg/dL (0.2-1.0); pH, Urine 7.5 (5.0-9.0)
== END 2017-03-19 00:57 ==
LOC: ERS 18:25
DX: G89.29 Other chronic pain (principal); M54.2 Cervicalgia; R53.1 Weakness; G47.30 Sleep apnea, unspecified; K21.9 Gastro-esophageal reflux disease without esophagitis; N40.0 Benign prostatic hyperplasia without lower urinary tract symptoms; J44.9 Chronic obstructive pulmonary disease, unspecified; I11.0 Hypertensive heart disease with heart failure; I50.9 Heart failure, unspecified; I25.2 Old myocardial infarction; I25.10 Atherosclerotic heart disease of native coronary artery without angina pectoris; E78.5 Hyperlipidemia, unspecified; F41.9 Anxiety disorder, unspecified; F32.9 Major depressive disorder, single episode, unspecified; Z87.891 Personal history of nicotine dependence; Z79.82 Long term (current) use of aspirin; Z79.899 Other long term (current) drug therapy
CPT/HCPCS: 36415; 80053; 81003; 85025; 85610; 85730; 96374; J2270

== ENCOUNTER 2017-03-24 21:59 | Inpatient (IN) | payer MEDICARE, BC ==
[~2017-03-24 21:59] MED LIST: ISOVUE-370 76%-LOCM 1 ML ONE
[2017-03-24 22:21] LABS: Base Excess-Venous 6.4 mmol/L (-30.0-30.0); Bicarbonate (HCO3v) 31.4 mmol/L (1.0-85.0); CO2 Tension (PvCO2) 45.2 mmHg (41.0-51.0); Calcium, Ionized 1.14 mmol/L (1.12-1.32); Hemoglobin - Calc 14.5 g/dL (12.0-18.0); Lactate 0.96 mmol/L (0.50-2.20); O2 Tension (PvO2) 49.7 mmHg (35.0-45.0); Potassium 3.8 mmol/L (3.4-4.7); T. Carbon Dioxide 32.8 mmol/L (1.0-85.0); vO2 Saturation-calc 86.1 % (0.0-100.0)
[2017-03-24 22:36] LABS: #Lymphocytes 0.5 thou/uL (1.20-3.40); #Monocytes 0.5 thou/uL (0.11-0.59); #Neutrophils 5.3 thou/uL (1.40-6.50); %Basophils 0.1 % (0.0-1.0); %Eosinophils 0.4 % (0.0-10.0); %Lymphocytes 8.2 % (21.0-51.0); %Monocytes 7.1 % (0.0-10.0); %Neutrophils 84.2 % (42.0-75.0); Hemoglobin 13.7 g/dL (14.0-18.0); Mean Corpuscular HGB CONC 32.4 g/dL (32.0-36.0); Mean Corpuscular Hemoglobin 30.7 pg (27.0-31.0); Platelet Count 112 thou/uL (130-400); RBC Distribution Width 14.5 % (11.5-14.5); Red Blood Cell (RBC) Count 4.45 mill/uL (4.70-6.10); White Blood Cell (WBC) Count 6.3 thou/uL (4.8-10.8)
--- NOTE | 2017-03-24 22:49 | CT ---
CT BRAIN WITHOUT CONTRAST 03/24/17 HISTORY: Altered mental status. FINDINGS: Comparison made with the exam dated 02/23/17. Ventricular and sulci prominence is stable. Changes of chronic small vessel ischemic disease in the p eriventricular white matter again seen. No evidence of acute infarct, hemorrhage, midline shift or ab normal extra-axial fluid collections are seen. The basilar cisterns are patent. The bony calvarium is intact. There is mucosal disease in the paranasal sinuses. IMPRESSION: No CT evidence of acute intracranial process. POS: [facility]
[2017-03-24 22:57] LABS: ALT (SGPT) 45 U/L (8-55); AST (SGOT) 44 U/L (5-34); Acetaminophen Less than 6.0 mcg/mL (10.0-30.0); Albumin 3.9 g/dL (3.4-4.8); Alcohol Less than 10 mg/dL (Less than 10); Alkaline Phosphatase 96 U/L (40-150); Anion Gap 17 mmol/L (10-20); BUN (Urea Nitrogen) 21 mg/dL (8.4-25.7); Bilirubin, Total 0.7 mg/dL (0.2-1.2); Calc. Creatinine Clearance 0 mL/min (70-130); Calcium 9.7 mg/dL (7.8-10.44); Carbon Dioxide 28 mmol/L (23-31); Chloride 102 mmol/L (98-107); Estimated GFR-MDRD 68; Globulin 3.1 g/dL (2.4-3.5); Glucose 117 mg/dL (80-115); Lipase 17 U/L (8-78); Potassium 3.7 mmol/L (3.5-5.1); Salicylate Less than 8.0 mg/dL (15.0-30.0); Sodium 143 mmol/L (136-145)
--- NOTE | 2017-03-24 22:58 | RAD ---
PORTABLE CHEST ONE VIEW 03/24/17 at 10:33 p.m. HISTORY: Altered mental status. Respiratory failure. FINDINGS/IMPRESSION: Comparison made with earlier exam of 8:22 p.m. There has been interval placement of an endotracheal tube with tip at the level of the clavicular hea ds. The remainder of the exam is otherwise stable. POS: [facility]
[2017-03-24 23:00] LABS: CKMB 0.4 ng/mL (0-6.6); Troponin I 0.087 ng/mL (< 0.028)
--- NOTE | 2017-03-24 23:08 | CT ---
CTA HEAD WITH IV CONTRAST AND 3D POSTPROCESSING CT PERFUSION OF THE BRAIN. 03/24/17 HISTORY: Altered mental status. FINDINGS: There are vascular calcifications. Good blood flow is seen in the intracranial portions of the verteb robasilar and internal carotid arteries system. No major branch occlusion, high grade stenosis or ane urysm formation is seen. No abnormalities are seen on the CT perfusion images. IMPRESSION: Unremarkable exam. POS: [facility]
[2017-03-24 23:15] LABS: Bilirubin Negative (Negative); Blood, Urine Negative (Negative); Clarity CLEAR (Clear); Glucose, Urine (Dipstick) Negative (Negative); Leukocyte Negative (Negative); Nitrite Negative (Negative); Protein, Urine (Dipstick) Negative (Neg-Trace); Specific Gravity, Urine 1.015 (1.002-1.036); Urobilinogen 0.2 mg/dL (0.2-1.0)
[2017-03-24 23:24] LABS: Medtox Reader # READER 1
[2017-03-24 23:25] LABS: Amphetamine Not Detected (NotDetected); Barbiturates Screen Not Detected (NotDetected); Benzodiazepine Screen Not Detected (NotDetected); Cocaine Metabolite Screen Not Detected (NotDetected); Medtox Control Line Valid? VALID (VALID); Methadone Not Detected (NotDetected); Methamphetamine Not Detected (NotDetected); Opiate Screen Detected (NotDetected); Oxycodone Screen Not Detected (NotDetected); Phencyclidine (PCP) Not Detected (NotDetected); THC/Cannabinoid Screen Not Detected (NotDetected); Tricyclic Screen Not Detected (NotDetected)
[2017-03-24 23:29] LABS: Actual Bicarbonate (HCO3a) 26.1 mEq/L (22-26); Base Excess (BEa) 3.9 mEq/L (0 (+/-) 2.5); CO2 Tension 31.8 mmHg (35.0-45.0); Hematocrit-ABG 39.3 % (42.0-52.0); pH, Arterial 7.53 (7.35-7.45)
[2017-03-24] MEDS ORDERED: Clindamycin/D5W 900 mg/50 ml Premix Bag ONE (23:29)
[2017-03-24 23:30] LABS: Analyzer IN Cardio ER; Calcium, Ionized 1.1 mmol/L (1.12-1.30); Hemoglobin (Hb) 12.7 g/dL (14.0-18.0)
[2017-03-24 23:31] LABS: Puncture Site RRA
[2017-03-25] MEDS ORDERED: Oseltamivir 6 MG/ML ORAL SUSP PER TUBE SCH (00:15)
[2017-03-25] MEDS ORDERED: Cefepime 1 GM, Admixture Fee 1 EACH in Sterile Water 10 ML SLOW IVP SCH (00:15)
[2017-03-25] MEDS ORDERED: Fentanyl 100 MCG/2 ML VIAL ONE (01:12)
[2017-03-25] MEDS ORDERED: Midazolam HCl 5 mg/ml Vial ONE (01:23)
[2017-03-25] MEDS ORDERED: Acetaminophen 325 MG/10.15 ML UDCUP ONE (02:23)
[2017-03-25 03:10] LABS: Troponin I 0.144 ng/mL (< 0.028)
[2017-03-25] MEDS ORDERED: Ondansetron ODT 4 MG TAB SL PRN (03:59)
[2017-03-25] MEDS ORDERED: Ondansetron HCl/PF 4 MG/2 ML Vial IVP PRN ×2 (03:59→04:19)
[2017-03-25] MEDS: Sodium Chloride 0.45% 1,000 ML IV SCH ×2 (04:10→08:43)
[2017-03-25] MEDS ORDERED: Mag-Al 1200 mg/1200 mg/30 ML UDCUP PO PRN (04:19)
[2017-03-25] MEDS ORDERED: CCU Electrolyte Replacement 1 EACH IVPB SCH (04:19)
[2017-03-25] MEDS ORDERED: Lacri-Lube Opth Oint 3.5 GM TUBE EA EYE PRN (04:19)
[2017-03-25] MEDS ORDERED: Milk Of Magnesia 30 ML UDCUP PO PRN (04:19)
[2017-03-25] MEDS ORDERED: Acetaminophen 650 MG Suppository PR PRN (04:19)
[2017-03-25] MEDS ORDERED: Acetaminophen 650 MG/20.3 ML UDCUP PO PRN (04:19)
[2017-03-25] MEDS ORDERED: Bisacodyl 5 MG TAB PO PRN (04:19)
[2017-03-25] MEDS ORDERED: Norepinephrine 8 MG/0.9% NS 250 ML IVPB PRN (04:19)
[2017-03-25] MEDS ORDERED: Potassium Chloride 20 MEQ TAB PO PRN (04:33)
[2017-03-25] MEDS ORDERED: Potassium Phosphate 9 MMOL in Sodium Chloride 0.9% 100 ML IVPB PRN (04:33)
[2017-03-25] MEDS ORDERED: CCU ELECTROLYTE REPLACEMENT PROTOCOL FS PRN (04:33)
[2017-03-25] MEDS ORDERED: Magnesium 2 GM/NS 0.9% 100 ML 2 GM in Premix Bag 1 BAG IVPB PRN (04:33)
[2017-03-25] MEDS ORDERED: Magnesium Oxide 400 MG TAB PO PRN ×2 (04:33)
[2017-03-25] MEDS ORDERED: Potassium Phosphate 12 MMOL in Sodium Chloride 0.9% 250 ML 250 ML IV PRN (04:33)
[2017-03-25] MEDS ORDERED: Potassium Chloride 40 MEQ in Premix Bag 1 BAG IVPB PRN (04:33)
[2017-03-25] MEDS ORDERED: Potassium Phosphate 15 MMOL in Sodium Chloride 0.9% 250 ML 250 ML IV PRN (04:33)
[2017-03-25] MEDS ORDERED: Potassium Chloride 40 MEQ in Sodium Chloride 0.9% 250 ML 250 ML IVPB PRN (04:33)
[2017-03-25] MEDS: Clindamycin/D5W 600 MG in Premix Bag 1 BAG IVPB SCH ×3 (05:20→17:38)
[2017-03-25 06:22] LABS: #Lymphocytes 0.8 thou/uL (1.20-3.40); #Monocytes 0.8 thou/uL (0.11-0.59); %Basophils 0.2 % (0.0-1.0); %Eosinophils 0.2 % (0.0-10.0); %Lymphocytes 9.2 % (21.0-51.0); %Monocytes 9.3 % (0.0-10.0); %Neutrophils 81.1 % (42.0-75.0); Hemoglobin 12.7 g/dL (14.0-18.0); Mean Corpuscular HGB CONC 32.1 g/dL (32.0-36.0); Mean Corpuscular Hemoglobin 30.5 pg (27.0-31.0); Mean Corpuscular Volume 95.3 fl (80.0-94.0); Mean Platelet Volume 8.1 fL (7.4-10.4); Platelet Count 140 thou/uL (130-400); RBC Distribution Width 14.5 % (11.5-14.5); Red Blood Cell (RBC) Count 4.14 mill/uL (4.70-6.10); White Blood Cell (WBC) Count 8.6 thou/uL (4.8-10.8)
[2017-03-25 06:36] LABS: Troponin I 0.147 ng/mL (< 0.028)
[2017-03-25 06:52] LABS: Anion Gap 14 mmol/L (10-20); BUN (Urea Nitrogen) 24 mg/dL (8.4-25.7); Calc. Creatinine Clearance 82 mL/min (70-130); Calcium 9.3 mg/dL (7.8-10.44); Carbon Dioxide 28 mmol/L (23-31); Chloride 103 mmol/L (98-107); Estimated GFR-MDRD 53; Glucose 152 mg/dL (80-115); Potassium 3.7 mmol/L (3.5-5.1); Sodium 141 mmol/L (136-145)
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
--- NOTE | 2017-03-25 08:07 | RAD ---
CHEST 1 VIEW: HISTORY: A 71-year-old male with altered mental status. COMPARISON: 03/24/17. Endotracheal tube and NG tubes in place. Abnormal opacity in the left base which appears to be more confluent than on the prior study, evidence for some left lower lobe atelectasis and/or pneumonia. S table bilateral shoulder joint degenerative changes including left-sided synovial chondromas. IMPRESSION: New confluent parenchymal changes in the left lower lobe, evidence for developing left lower lobe pne umonia and/or atelectasis. Continue shot-term followup. CODE T POS: [facility]
[2017-03-25 08:19] LABS: Actual Bicarbonate (HCO3a) 25.8 mEq/L (22-26); Base Excess (BEa) 3.1 mEq/L (0 (+/-) 2.5); CO2 Tension 33.6 mmHg (35.0-45.0); Calcium, Ionized 1.2 mmol/L (1.12-1.30); Hematocrit-ABG 39.7 % (42.0-52.0); Hemoglobin (Hb) 12.7 g/dL (14.0-18.0); O2 Tension (PaO2) 86.4 mmHg (80.0-100.0)
[2017-03-25 08:25] LABS: Puncture Site RR
[2017-03-25] MEDS: Oseltamivir 6 MG/ML ORAL SUSP PO SCH ×2 (08:43→20:53)
[2017-03-25] MEDS: Famotidine/PF 20 mg/2ml Vial SLOW IVP SCH ×2 (08:43→20:52)
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
--- NOTE | 2017-03-25 11:17 | PDOC.PN ---
- Subjective Encounter Start Date: 03/25/17 Encounter Start Time: 11:16 Subjective: intubated, unresponsive - Objective MAR Reviewed: Yes Vital Signs & Weight: Vital Signs (12 hours) Temp Pulse Resp BP Pulse Ox 03/25/17 10:00 14 03/25/17 08:22 82 119/61 03/25/17 08:00 100.1 F H 82 20 99 03/25/17 07:00 100.1 F H 03/25/17 06:00 20 03/25/17 04:00 100 03/25/17 03:37 101.6 F H 96 26 H 98 Weight Weight 244 lb 11.41 oz Most Recent Monitor Data Heart Rate from ECG 89 NIBP 136/64 NIBP BP-Mean 80 Respiration from ECG 38 SpO2 100 I&O: 03/24/17 03/25/17 03/26/17 06:59 06:59 06:59 Intake Total 206.6 60 Output Total 140 200 Balance 66.6 -140 Result Diagrams: 03/25/17 05:27 03/25/17 05:27 Phys Exam - Physical Examination Constitutional: NAD Neck: no JVD grossly clear ant lung Cardiovascular: RRR, no significant murmur Gastrointestinal: soft, positive bowel sounds Musculoskeletal: edema present Dx/Plan (1) Sepsis associated hypotension Code(s): A41.9 - SEPSIS, UNSPECIFIED ORGANISM Status: Acute (2) Sepsis Code(s): A41.9 - SEPSIS, UNSPECIFIED ORGANISM Status: Acute Qualifiers: Sepsis type: sepsis due to unspecified organism Qualified Code(s): A41.9 - Sepsis, unspecified organism (3) COPD exacerbation Code(s): J44.1 - CHRONIC OBSTRUCTIVE PULMONARY DISEASE W (ACUTE) EXACERBATION Status: Acute (4) Elevated troponin Code(s): R74.8 - ABNORMAL LEVELS OF OTHER SERUM ENZYMES Status: Acute (5) Systolic CHF, acute on chronic Code(s): I50.23 - ACUTE ON CHRONIC SYSTOLIC (CONGESTIVE) HEART FAILURE Status : Acute (6) CAD (coronary artery disease) Code(s): I25.10 - ATHSCL HEART DISEASE OF [place] CORONARY ARTERY W/O ANG PCTRS Status: Chronic Qualifiers: Coronary Disease-Associated Artery/Lesion type: [place] artery [place] vs. transplanted heart: [place] heart Associated angina: without angina Qualified Code(s): I25.10 - Atherosclerotic heart disease of [place] coronary artery without angina pectoris (7) Opioid dependence Code(s): F11.20 - OPIOID DEPENDENCE, UNCOMPLICATED Status: Chronic Qualifiers: (8) Acute respiratory failure with hypoxia and hypercarbia Code(s): J96.01 - ACUTE RESPIRATORY FAILURE WITH HYPOXIA; J96.02 - ACUTE RESPIRATORY FAILURE WITH HYPERCAPNIA Status: Acute - Plan on vent -: on norepinephrine pressure support -: on antibx, freq nebs, iv steroids * .
[2017-03-26] MEDS: Clindamycin/D5W 600 MG in Premix Bag 1 BAG IVPB SCH ×5 (00:20→23:42)
[2017-03-26] MEDS: fentaNYL Citrate/PF 2,000 MCG in Sodium Chloride 0.9% 60 ML IV SCH ×2 (00:56→16:22)
[2017-03-26 05:42] LABS: ALT (SGPT) 32 U/L (8-55); AST (SGOT) 33 U/L (5-34); Albumin 3.3 g/dL (3.4-4.8); Alkaline Phosphatase 71 U/L (40-150); Anion Gap 10 mmol/L (10-20); BUN (Urea Nitrogen) 30 mg/dL (8.4-25.7); Bilirubin, Total 0.4 mg/dL (0.2-1.2); Calc. Creatinine Clearance 0 mL/min (70-130); Carbon Dioxide 29 mmol/L (23-31); Chloride 103 mmol/L (98-107); Estimated GFR-MDRD 72; Globulin 2.6 g/dL (2.4-3.5); Glucose 147 mg/dL (80-115); Potassium 3.7 mmol/L (3.5-5.1); Protein, Total 5.9 g/dL (5.8-8.1); Sodium 138 mmol/L (136-145)
[2017-03-26 05:59] LABS: Band 18 % (5-11); Hemoglobin 11.3 g/dL (14.0-18.0); Lymphocytes 5 % (21-51); MDiff Complete? YES; Mean Corpuscular HGB CONC 31.3 g/dL (32.0-36.0); Mean Corpuscular Volume 96.1 fl (80.0-94.0); Mean Platelet Volume 7.9 fL (7.4-10.4); Monocytes 2 % (0-10); Neutrophil 75 % (42-75); PLT Morphology Comment Appears Decreased; Platelet Count 104 thou/uL (130-400); RBC Distribution Width 14.4 % (11.5-14.5); Red Blood Cell (RBC) Count 3.74 mill/uL (4.70-6.10); White Blood Cell (WBC) Count 6.9 thou/uL (4.8-10.8)
[2017-03-26 06:54] LABS: Actual Bicarbonate (HCO3a) 27.5 mEq/L (22-26); Base Excess (BEa) 2.4 mEq/L (0 (+/-) 2.5); CO2 Tension 44.6 mmHg (35.0-45.0); Calcium, Ionized 1.3 mmol/L (1.12-1.30); Hematocrit-ABG 38.4 % (42.0-52.0); Hemoglobin (Hb) 12.1 g/dL (14.0-18.0); pH, Arterial 7.41 (7.35-7.45)
[2017-03-26 06:55] LABS: Puncture Site RRA
[2017-03-26] MEDS ORDERED: Sedation Protocol FS ONE (07:22)
[2017-03-26] MEDS ORDERED: Morphine 2 MG/ML SYRINGE SLOW IVP PRN (07:40)
[2017-03-26] MEDS ORDERED: Fentanyl BOLUS 250 ML IVPB PRN (07:40)
--- NOTE | 2017-03-26 07:47 | PRG ---
DATE OF SERVICE: 03/26/2017 He is intubated on the vent, not much sedation. He opens his eyes. PHYSICAL EXAMINATION: VITAL SIGNS: Pulse 86, blood pressure 130/90, sats 100%, respirations 18. His I's and O's have been 1986 in, 1009 out. NEUROLOGIC: He opens his eyes. CHEST: Chest revealed decreased breath sounds, no wheezing, bilateral crackles. CARDIAC: Normal S1-S2. No gallops. ABDOMEN: Soft. EXTREMITIES: Trace edema. LABORATORY DATA: White count 6000, H&H 9 and 36, platelet count 104, pO2 was 74, pCO2 40.41, rate of 14, 40%, 500 tidal volume. Creatinine is 1, BUN 32. X-ray shows cardiomegaly, cephalization. Possibly left-sided infiltrate. IMPRESSION: 1. Respiratory failure. 2. Congestive heart failure. 3. Influenza A. PLAN: Continue neb treatments, antibiotics as prescribed Levaquin and clindamycin. Continue cardiac care. Steroids and Tamiflu. Start nutrition, wean in the next 24-48 hours. One-half hour critical care time.
[2017-03-26] MEDS: Oseltamivir 6 MG/ML ORAL SUSP PO SCH ×2 (09:02→20:29)
[2017-03-26] MEDS: Famotidine/PF 20 mg/2ml Vial SLOW IVP SCH ×2 (09:02→20:29)
[2017-03-26] MEDS: Lorazepam 2 MG/ML VIAL SLOW IVP PRN ×3 (09:36→20:37)
--- NOTE | 2017-03-26 12:11 | PDOC.PN ---
- Subjective Encounter Start Date: 03/26/17 Encounter Start Time: 10:10 intubated on vent. no acute night events - Objective Vital Signs & Weight: Vital Signs (12 hours) Temp Pulse Resp BP Pulse Ox 03/26/17 11:12 97.0 F L 03/26/17 11:10 85 100/59 L 03/26/17 10:00 15 03/26/17 08:04 89 110/56 L 03/26/17 08:00 96.9 F L 85 17 97 03/26/17 07:00 96.9 F L 03/26/17 06:00 24 H 03/26/17 04:00 98.5 F 16 03/26/17 02:00 29 H Weight Admit Weight 244 lb 11.41 oz Weight 3.958 oz Most Recent Monitor Data Heart Rate from ECG 84 NIBP 90/53 NIBP BP-Mean 63 Respiration from ECG 14 SpO2 96 I&O: 03/25/17 03/26/17 03/27/17 06:59 06:59 06:59 Intake Total 206.6 1986 50 Output Total 140 1095 295 Balance 66.6 891 -245 Result Diagrams: 03/26/17 05:00 03/26/17 05:00 Phys Exam - Physical Examination Constitutional: NAD HEENT: PERRLA Neck: no nodes, no JVD, supple, full ROM Respiratory: no wheezing, no rales, no rhonchi, clear to auscultation bilateral Cardiovascular: RRR, no significant murmur, no rub Gastrointestinal: soft, no distention, positive bowel sounds Musculoskeletal: no edema, pulses present Dx/Plan (1) Influenza Code(s): J11.1 - FLU DUE TO UNIDENTIFIED INFLUENZA VIRUS W OTH RESP MANIFEST Status: Acute (2) Sepsis Code(s): A41.9 - SEPSIS, UNSPECIFIED ORGANISM Status: Acute Qualifiers: Sepsis type: sepsis due to unspecified organism Qualified Code(s): A41.9 - Sepsis, unspecified organism (3) Sepsis associated hypotension Code(s): A41.9 - SEPSIS, UNSPECIFIED ORGANISM Status: Acute (4) Acute respiratory failure with hypoxia and hypercarbia Code(s): J96.01 - ACUTE RESPIRATORY FAILURE WITH HYPOXIA; J96.02 - ACUTE RESPIRATORY FAILURE WITH HYPERCAPNIA Status: Acute - Plan cont current plan of care, continue antibiotics, director of social services, respiratory therapy * . off pressors continue iv abx, tamiflu and steroids supportive care consulted
[2017-03-26] MEDS ORDERED: Amiodarone In Dextrose 200 ML IVPB SCH (13:00)
--- NOTE | 2017-03-26 13:30 | CON ---
DATE OF CONSULTATION: 03/26/2017 PRIMARY RADIATOR FITTER: Dr. Cuong Randhawa. REASON FOR CONSULTATION: Tachycardia. HISTORY OF PRESENT ILLNESS: Mr. Lugo is a pleasant 71-year-old white gentleman who comes to the [facility] for shortness of breath. He was diagnosed with influenza A and pneumonia, left lower lobe, ramos d to be intubated because of all this. He was also in septic shock, was on pressors up until earlier this morning. His blood pressure remains borderline, but no longer low as it was before. He has be en monitored throughout his admission and earlier today it was noted that he had a small run of a wid e complex rhythm. He has an underlying wide QRS. The tachycardia that he had was a change in his seline right bundle-branch block, so Cardiology is being consulted for this. Currently, he remains s edated and intubated, so he is unable to give me any history. He does have a significant history of ischemic cardiomyopathy with an EF of about 25% to 30%. He had an AICD in place at one point, which had to be removed secondary to infection. He had a lot of pain on the ICD site, so he has refused to have a second AICD placed. He has had bypass surgery in the past as well. PAST MEDICAL HISTORY: 1. Ischemic cardiomyopathy with an EF of 25% to 30%. 2. Recurrent systolic heart failure exacerbations in the past. 3. Coronary artery disease. 4. Hyperlipidemia. 5. Intolerant to statins due to increased emotional lability. 6. Morbid obesity. 7. Obstructive sleep apnea. 8. Noncompliant with CPAP. 9. Anxiety. 10. Benign prostatic hypertrophy. 11. COPD, on home O2. 12. Chronic iron deficiency anemia. 13. Renal insufficiency. PAST SURGICAL HISTORY: 1. CABG. 2. Most recently bare metal stent to the right posterolateral graft into the RPL. 3. Hernia repair. 4. Defibrillator placement and removal due to infection. 5. Bilateral common iliac artery repair in 2015. 6. Left total knee replacement. REVIEW OF SYSTEMS: Unobtainable as the patient is sedated and intubated. OUTPATIENT MEDICATIONS: Reviewed on [employer]. Please see notes for details. I am unclear whether t his is an accurate list of his list 2 different statin drugs, which he has known intolerance to it. This will have to be confirmed with family members. ALLERGIES: VANCOMYCIN, BUDESONIDE, DOXYCYCLINE, FORMOTEROL, HYDROGEN PEROXIDE, LISINOPRIL, LYRICA, S TATIN DRUGS, AND PEROXIDE. SOCIAL HISTORY: Former smoker, quit about 20 years ago. No alcohol, drugs. FAMILY HISTORY: Both parents with heart failure. PHYSICAL EXAMINATION: VITAL SIGNS: Temperature 97.2, pulse 84, respiratory rate 12, satting 97% on 50% FiO2, blood pressur e 90/53. GENERAL: Sedated and intubated. LUNGS: Coarse breath sounds bilaterally. CARDIOVASCULAR: S1, S2, no S3, S4. There is a grade 2/6 systolic murmur right upper sternal border. ABDOMEN: Appears to be nontender with positive bowel sounds. EXTREMITIES: No edema. SKIN: Warm and dry. LABORATORY WORK: Reviewed. CBC was reviewed. ABG was reviewed. Chemistries were reviewed. Potass ium is normal. Creatinine is 1.02 this morning. Troponin was 0.14 and 0.14. BNP of 531, albumin of 3.3. UA was unremarkable. Toxicology that was positive for opiates, with that it is undetectable p lasma alcohol. Telemetry strips were reviewed. He has an underlying wide QRS, which is consistent with his right bu ndle-branch block on EKG. The episode of rapid heart rate is in the 150 rate, and I cannot completel y exclude this being ventricular tachycardia; however, it could also be supraventricular tachycardia. My suspicion is higher for ventricular tachycardia given his LV dysfunction and the morphology of t he rhythm. PLAN: 1. Wide complex tachycardia: I would favor VT at this time given LV dysfunction. He does have an u nderlying right bundle-branch block and he did not really change axis on his telemetry, which would f avor SVT; however, I will start an amiodarone drip as my concern for VT is high at this time. It wou ld be nonsustained at that time, but given how severely ill he is at this time, I would rather suppre ss this rhythm for now. He would be a candidate for an AICD; however, he has refused in the past. T his will be addressed with him once he is off of the ventilator. 2. Influenza type A and pneumonia. Per primary team. 3. Chronic ischemic cardiomyopathy, EF at 25% to 30%. Seems to be stable at this time. He does hav e some component of pulmonary edema on his chest x-ray, but currently it would be prohibitive to diur adelaida given his low blood pressure. I am sure we will start diuresing once the blood pressure is more stable. 4. Acute hypoxic hypercapnic respiratory insufficiency per Pulmonary. 5. Chronic obstructive pulmonary disease. Thank you for letting us participate in the care of this patient. We will continue to follow the [facility] ient.
[2017-03-26] MEDS: Amiodarone HCl 450 MG, Admixture Fee 1 EACH in Dextrose 5% in Water 250 ML IVPB SCH ×2 (13:31→20:29)
[2017-03-27] MEDS: Propofol 1,000 MG/100 ML VIAL IV PRN ×5 (00:25→21:52)
[2017-03-27 04:42] LABS: ALT (SGPT) 30 U/L (8-55); AST (SGOT) 30 U/L (5-34); Albumin 3.1 g/dL (3.4-4.8); Alkaline Phosphatase 73 U/L (40-150); Anion Gap 13 mmol/L (10-20); BUN (Urea Nitrogen) 44 mg/dL (8.4-25.7); Bilirubin, Total 0.3 mg/dL (0.2-1.2); Calc. Creatinine Clearance 115 mL/min (70-130); Calcium 9.4 mg/dL (7.8-10.44); Carbon Dioxide 28 mmol/L (23-31); Chloride 101 mmol/L (98-107); Estimated GFR-MDRD 78; Globulin 2.9 g/dL (2.4-3.5); Glucose 177 mg/dL (80-115); Potassium 3.9 mmol/L (3.5-5.1); Sodium 138 mmol/L (136-145)
[2017-03-27] MEDS: Clindamycin/D5W 600 MG in Premix Bag 1 BAG IVPB SCH (05:16)
[2017-03-27 05:30] LABS: Band 8 % (5-11); Hemoglobin 11.5 g/dL (14.0-18.0); Lymphocytes 11 % (21-51); MDiff Complete? YES; Mean Corpuscular HGB CONC 31.8 g/dL (32.0-36.0); Mean Corpuscular Hemoglobin 30.8 pg (27.0-31.0); Mean Corpuscular Volume 96.6 fl (80.0-94.0); Mean Platelet Volume 8.2 fL (7.4-10.4); Metamyelocyte 1 % (0-0); Monocytes 1 % (0-10); Neutrophil 79 % (42-75); PLT Morphology Comment Appears Adequate; Platelet Count 114 thou/uL (130-400); RBC Morphology Normal; Red Blood Cell (RBC) Count 3.74 mill/uL (4.70-6.10); White Blood Cell (WBC) Count 5.4 thou/uL (4.8-10.8)
[2017-03-27 07:06] LABS: Actual Bicarbonate (HCO3a) 28.2 mEq/L (22-26); CO2 Tension 51.4 mmHg (35.0-45.0); Hematocrit-ABG 38.3 % (42.0-52.0); Hemoglobin (Hb) 11.5 g/dL (14.0-18.0); O2 Tension (PaO2) 82.6 mmHg (80.0-100.0); pH, Arterial 7.36 (7.35-7.45)
[2017-03-27 07:08] LABS: Calcium, Ionized 1.3 mmol/L (1.12-1.30); Puncture Site RRA
[2017-03-27] MEDS: Famotidine/PF 20 mg/2ml Vial SLOW IVP SCH ×2 (08:30→20:36)
--- NOTE | 2017-03-27 08:30 | RAD ---
PORTABLE SEMIUPRIGHT FRONTAL CHEST RADIOGRAPH: DATE: 03/27/17. COMPARISON: 03/25/17. HISTORY: Ventilated patient. FINDINGS: Nasogastric tube and endotracheal tube present, stable. Midline sternotomy wires and mediastinal cli ps are present. The cardiac silhouette is enlarged, a stable finding. There is focal opacity in the medial left lung base suggesting partial consolidation/collapse of the left lower lobe. This partia l consolidation of the left lower lobe appears unchanged. Asymmetric increased linear density noted in medial right lung base/right infrahilar region, nonspecific and slightly worsened. IMPRESSION: Lines and tubes as above. Bibasilar nonspecific increased density is noted, which may signify volume loss, infectious pneumonitis, or aspiration. Continued followup advised. POS: MITRA
[2017-03-27] MEDS: Enoxaparin Sodium 40 MG/0.4 ML SYRINGE SC SCH (08:31)
[2017-03-27] MEDS ORDERED: Furosemide 40 MG/4 ML VIAL SLOW IVP SCH (09:30)
[2017-03-27] MEDS: Oseltamivir 6 MG/ML ORAL SUSP PO SCH ×2 (10:27→20:36)
[2017-03-27] MEDS: Amiodarone HCl 450 MG, Admixture Fee 1 EACH in Dextrose 5% in Water 250 ML IVPB SCH (10:27)
[2017-03-27] MEDS ORDERED: Sodium Chloride 0.9% 0 ML ONE (10:36)
--- NOTE | 2017-03-27 12:26 | PRG ---
DATE OF SERVICE: 03/27/2017 SUBJECTIVE: A 71-year-old gentleman, intubated on the vent on sedation, this being withheld this mor david to see whether it can be weaned. X-ray shows cardiomegaly but no acute infiltrates. PHYSICAL EXAMINATION: VITAL SIGNS: Pulse 82, blood pressure 103/94, sats are 90% at 15. I's and O's over the last 24 hour s 2439 and 118 out. CHEST: Reveals decreased breath sounds, no crackles, no wheezing. CARDIAC: Normal S1, S2. No gallop. ABDOMEN: Soft, no masses. LABORATORY DATA AND IMAGING DATA: White count 5,000, hemoglobin and hematocrit 11 and 36, platelet c ount 14, 79 segs, 8 bands, pO2 is 82, pCO2 of 51, pH 7.36. His electrolytes are normal. Creatinine is 0.96, BUN 44, albumin 1.4. X-ray shows cardiomegaly. The previously described left-sided infilt rate is not much apparent today. IMPRESSION: 1. Congestive heart failure. 2. Supraventricular tachycardia. 3. Chronic obstructive pulmonary disease. 4. Obstructive sleep apnea. 5. Diabetes. 6. Morbid obesity. 7. Poor compliance. PLAN: We will try and wean if possible. In the meantime, he is on amiodarone, steroids, antibiotics , nebulizer treatment. We will follow. One-half hour critical care time.
--- NOTE | 2017-03-27 12:50 | PDOC.PN ---
- Subjective Encounter Start Date: 03/27/17 Encounter Start Time: 10:00 following commands while intubated no acute night events - Objective Vital Signs & Weight: Vital Signs (12 hours) Temp Pulse Resp BP Pulse Ox 03/27/17 12:00 98.3 F 17 03/27/17 10:52 70 101/63 03/27/17 10:00 23 H 03/27/17 08:17 66 103/64 03/27/17 08:00 98.5 F 66 20 93 L 03/27/17 07:23 20 03/27/17 07:00 98.5 F 03/27/17 06:00 12 03/27/17 04:00 98.4 F 13 03/27/17 02:29 67 03/27/17 02:00 13 Weight Admit Weight 244 lb 11.41 oz Weight 253 lb 12.033 oz Most Recent Monitor Data Heart Rate from ECG 66 NIBP 108/57 NIBP BP-Mean 66 Respiration from ECG 10 SpO2 98 I&O: 03/26/17 03/27/17 03/28/17 06:59 06:59 06:59 Intake Total 1986 2439.5 60 Output Total 1095 1185 955 Balance 891 1254.5 -895 Result Diagrams: 03/27/17 04:20 03/27/17 04:20 Phys Exam - Physical Examination Constitutional: NAD HEENT: PERRLA, moist MMs Neck: no JVD, supple mild rhonici B/L Cardiovascular: RRR, no significant murmur Gastrointestinal: soft, non-tender, positive bowel sounds Musculoskeletal: pulses present Skin: cap refill <2 seconds Dx/Plan (1) Influenza Code(s): J11.1 - FLU DUE TO UNIDENTIFIED INFLUENZA VIRUS W OTH RESP MANIFEST Status: Acute (2) Sepsis Code(s): A41.9 - SEPSIS, UNSPECIFIED ORGANISM Status: Acute Qualifiers: Sepsis type: sepsis due to unspecified organism Qualified Code(s): A41.9 - Sepsis, unspecified organism (3) Sepsis associated hypotension Code(s): A41.9 - SEPSIS, UNSPECIFIED ORGANISM Status: Acute (4) Acute respiratory failure with hypoxia and hypercarbia Code(s): J96.01 - ACUTE RESPIRATORY FAILURE WITH HYPOXIA; J96.02 - ACUTE RESPIRATORY FAILURE WITH HYPERCAPNIA Status: Acute - Plan cont current plan of care, plan discussed w/ family, continue antibiotics, PT/OT , social worker clinical, respiratory therapy * . plan to extubate the patient will be given a dose of lasix prior to trying following commands very well
[2017-03-28] MEDS: Propofol 1,000 MG/100 ML VIAL IV PRN ×3 (02:13→18:20)
[2017-03-28] MEDS: Amiodarone HCl 450 MG, Admixture Fee 1 EACH in Dextrose 5% in Water 250 ML IVPB SCH ×2 (02:13→17:27)
[2017-03-28 05:56] LABS: Band 8 % (5-11); Hemoglobin 11.9 g/dL (14.0-18.0); Hypochromia SLIGHT = 6-15 cells (100X) (0-5/hpf); Lymphocytes 4 % (21-51); MDiff Complete? YES; Mean Corpuscular HGB CONC 32.4 g/dL (32.0-36.0); Mean Corpuscular Hemoglobin 30.9 pg (27.0-31.0); Mean Corpuscular Volume 95.4 fl (80.0-94.0); Mean Platelet Volume 8.7 fL (7.4-10.4); Monocytes 19 % (0-10); Neutrophil 69 % (42-75); PLT Morphology Comment Appears Decreased; Platelet Count 113 thou/uL (130-400); Red Blood Cell (RBC) Count 3.84 mill/uL (4.70-6.10); White Blood Cell (WBC) Count 4.8 thou/uL (4.8-10.8)
[2017-03-28 06:04] LABS: ALT (SGPT) 58 U/L (8-55); AST (SGOT) 55 U/L (5-34); Albumin 3.3 g/dL (3.4-4.8); Alkaline Phosphatase 76 U/L (40-150); Anion Gap 10 mmol/L (10-20); BUN (Urea Nitrogen) 37 mg/dL (8.4-25.7); Bilirubin, Total 0.5 mg/dL (0.2-1.2); Calc. Creatinine Clearance 142 mL/min (70-130); Calcium 9.5 mg/dL (7.8-10.44); Carbon Dioxide 32 mmol/L (23-31); Chloride 100 mmol/L (98-107); Estimated GFR-MDRD Greater than 90; Globulin 2.8 g/dL (2.4-3.5); Glucose 143 mg/dL (80-115); Protein, Total 6.1 g/dL (5.8-8.1); Sodium 138 mmol/L (136-145)
--- NOTE | 2017-03-28 08:56 | RAD ---
SEMIUPRIGHT CHEST 1 VIEW: Date: 03/28/17 HISTORY: 71-year-old male with history of respiratory distress, follow-up. COMPARISON: 03/27/17. FINDINGS: NG tube and endotracheal tubes are in position. Monitor leads overlie the chest. There is persistent cardiomegaly and patchy bilateral linear interstitial and alveolar opacity changes, more prominent in the left base, with little change from prior studies. IMPRESSION: Persistent bilateral infrahilar and lower lobe interstitial and alveolar opacity changes, and left co stophrenic angle blunting. No significant new process. Continue short-term follow-up. POS: MITRA
[2017-03-28 09:09] LABS: CO2 Tension 40.7 mmHg (35.0-45.0); pH, Arterial 7.48 (7.35-7.45)
[2017-03-28 09:13] LABS: O2 Tension (PaO2) 58.8 mmHg (80.0-100.0)
[2017-03-28 09:14] LABS: Actual Bicarbonate (HCO3a) 29.4 mEq/L (22-26); Base Excess (BEa) 5.5 mEq/L (0 (+/-) 2.5); Hematocrit-ABG 35.5 % (42.0-52.0); Hemoglobin (Hb) 11.4 g/dL (14.0-18.0)
[2017-03-28 09:15] LABS: ALV-art Gradient 175.525 (0-20); Calcium, Ionized 1.3 mmol/L (1.12-1.30); Puncture Site RBA
--- NOTE | 2017-03-28 09:50 | PRG ---
DATE OF SERVICE: 03/28/2017 This morning he is awake, alert, responsive, less agitated. He is still sedated on Diprivan. PHYSICAL EXAMINATION: VITAL SIGNS: Blood pressure 150/78, respirations 26, sats are 96%. I's and O's after diuretics are 2375 in, 2845 out. CHEST: Chest reveals bilateral rhonchi. No wheezing. CARDIAC: Normal S1, S2. No gallops. LABORATORY: White count 4.8, H&H 9 and 36, platelet count 130, 68 segs, 8 bands. X-ray shows a ques tionable left retrocardiac infiltrate. PO2 58, PCO2 40%, rate of 10, 40%. BUN is 37. IMPRESSION: 1. Congestive heart failure. 2. Respiratory failure. 3. Chronic obstructive pulmonary disease. 4. Encephalopathy. 5. Underlying cardiomyopathy. 6. Influenza. PLAN: Continue diuretics, continue antibiotics and Tamiflu. Estimated EF was 30% at his last visit. Slow weaning, nutrition, PT. One-half hour critical care time.
[2017-03-28] MEDS: Famotidine/PF 20 mg/2ml Vial SLOW IVP SCH ×2 (10:00→22:33)
[2017-03-28] MEDS: Enoxaparin Sodium 40 MG/0.4 ML SYRINGE SC SCH (10:03)
[2017-03-28] MEDS: Furosemide 40 MG/4 ML VIAL SLOW IVP SCH (10:25)
[2017-03-28] MEDS: Oseltamivir 6 MG/ML ORAL SUSP PO SCH ×2 (10:44→22:33)
--- NOTE | 2017-03-28 17:13 | PDOC.PN ---
- Subjective Encounter Start Date: 03/29/17 Encounter Start Time: 09:49 Patient seen and examined. No new complaints. No overnight events - Objective Vital Signs & Weight: Vital Signs (12 hours) Temp Pulse Resp BP Pulse Ox 03/28/17 16:00 100.2 F H 03/28/17 15:54 26 H 03/28/17 14:52 82 27 H 96 03/28/17 14:00 99.3 F 20 03/28/17 12:08 85 129/63 03/28/17 12:00 22 H 03/28/17 10:00 20 03/28/17 08:04 85 151/78 H 03/28/17 08:03 83 23 H 96 03/28/17 08:00 98.4 F 85 22 H 03/28/17 07:00 99.5 F 17 03/28/17 06:00 17 Weight Admit Weight 244 lb 11.41 oz Weight 251 lb 1.704 oz Most Recent Monitor Data Heart Rate from ECG 83 NIBP 163/73 NIBP BP-Mean 89 Respiration from ECG 23 SpO2 100 I&O: 03/27/17 03/28/17 03/29/17 06:59 06:59 06:59 Intake Total 2439.5 2735 90 Output Total 1185 2845 3020 Balance 1254.5 -110 -2930 Result Diagrams: 03/29/17 03:57 03/29/17 03:57 Phys Exam - Physical Examination HEENT: PERRLA Respiratory: no rales Cardiovascular: no significant murmur Gastrointestinal: non-tender Musculoskeletal: pulses present Neurological: moves all 4 limbs Dx/Plan (1) Influenza Code(s): J11.1 - FLU DUE TO UNIDENTIFIED INFLUENZA VIRUS W OTH RESP MANIFEST Status: Acute (2) Acute respiratory failure with hypoxia and hypercarbia Code(s): J96.01 - ACUTE RESPIRATORY FAILURE WITH HYPOXIA; J96.02 - ACUTE RESPIRATORY FAILURE WITH HYPERCAPNIA Status: Acute (3) COPD exacerbation Code(s): J44.1 - CHRONIC OBSTRUCTIVE PULMONARY DISEASE W (ACUTE) EXACERBATION Status: Acute (4) Systolic CHF, acute on chronic Code(s): I50.23 - ACUTE ON CHRONIC SYSTOLIC (CONGESTIVE) HEART FAILURE Status : Acute (5) Dyslipidemia Code(s): E78.5 - HYPERLIPIDEMIA, UNSPECIFIED Status: Chronic - Plan * continue diuresis * f/u pulm plan for vent mx * pt/ot * continue abx and tamiflu
[2017-03-29] MEDS: Propofol 1,000 MG/100 ML VIAL IV PRN ×2 (03:45→08:22)
[2017-03-29 05:12] LABS: ALT (SGPT) 89 U/L (8-55); AST (SGOT) 62 U/L (5-34); Albumin 3.5 g/dL (3.4-4.8); Alkaline Phosphatase 85 U/L (40-150); Anion Gap 11 mmol/L (10-20); BUN (Urea Nitrogen) 30 mg/dL (8.4-25.7); Bilirubin, Total 0.8 mg/dL (0.2-1.2); Calc. Creatinine Clearance 148 mL/min (70-130); Carbon Dioxide 33 mmol/L (23-31); Chloride 101 mmol/L (98-107); Estimated GFR-MDRD Greater than 90; Globulin 3.1 g/dL (2.4-3.5); Glucose 129 mg/dL (80-115); Potassium 3.9 mmol/L (3.5-5.1); Protein, Total 6.6 g/dL (5.8-8.1); Sodium 141 mmol/L (136-145)
[2017-03-29 05:32] LABS: Band 1 % (5-11); Hemoglobin 13.1 g/dL (14.0-18.0); Lymphocytes 11 % (21-51); MDiff Complete? YES; Macrocytosis SLIGHT = 6-15 cells (100X) (0-5/hpf); Mean Corpuscular Hemoglobin 31.1 pg (27.0-31.0); Mean Corpuscular Volume 94.3 fl (80.0-94.0); Mean Platelet Volume 8.9 fL (7.4-10.4); Monocytes 6 % (0-10); Neutrophil 82 % (42-75); PLT Morphology Comment Appears Decreased; Platelet Count 126 thou/uL (130-400); RBC Distribution Width 14.2 % (11.5-14.5); Red Blood Cell (RBC) Count 4.23 mill/uL (4.70-6.10); White Blood Cell (WBC) Count 5.4 thou/uL (4.8-10.8)
[2017-03-29] MEDS: Amiodarone HCl 450 MG, Admixture Fee 1 EACH in Dextrose 5% in Water 250 ML IVPB SCH ×2 (05:45→20:04)
[2017-03-29] MEDS: Enoxaparin Sodium 40 MG/0.4 ML SYRINGE SC SCH (08:32)
[2017-03-29] MEDS: Oseltamivir 6 MG/ML ORAL SUSP PO SCH ×2 (08:33→21:38)
[2017-03-29] MEDS: Famotidine/PF 20 mg/2ml Vial SLOW IVP SCH ×2 (08:33→21:23)
[2017-03-29] MEDS: Furosemide 40 MG/4 ML VIAL SLOW IVP SCH (08:33)
[2017-03-29 10:06] LABS: pH, Arterial 7.49 (7.35-7.45)
[2017-03-29 10:07] LABS: Actual Bicarbonate (HCO3a) 27.5 mEq/L (22-26); CO2 Tension 37.2 mmHg (35.0-45.0)
[2017-03-29 10:08] LABS: Calcium, Ionized 1.3 mmol/L (1.12-1.30); Puncture Site RBA
--- NOTE | 2017-03-29 10:12 | RAD ---
SEMIUPRIGHT PORTABLE CHEST 1 VIEW: Date: 03/29/17 HISTORY: 71-year-old male with respiratory insufficiency. FINDINGS: NG tube and endotracheal tube in position. Minimal cardiomegaly with bilateral infrahilar alveolar an d interstitial parenchymal changes. Overall stable. IMPRESSION: Overall stable bibasilar pulmonary and parenchymal changes and NG tube and endotracheal tube. Continu e short-term follow-up. POS: MITRA
--- NOTE | 2017-03-29 12:01 | PRG ---
DATE OF SERVICE: 03/29/2017 SUBJECTIVE: This morning, he is much more calm. His x-ray looks stable. No new infiltrates. OBJECTIVE: VITAL SIGNS: Blood pressure 163/89, pulse 124, and respirations 18. I's and O's have been good at 2 75 and 285. CHEST: Decreased breath sounds. No wheezing. CARDIAC: Normal S1 and S2. No gallops. ABDOMEN: Soft. No masses. LABORATORY DATA: White count 5000, hemoglobin and hematocrit 13 and 39, platelet count 126. Electro lytes are normal. IMPRESSION: 1. Status post influenza. 2. Pneumonia. 3. Respiratory failure. 4. Congestive heart failure. 5. Status post supraventricular tachycardia. PLAN: We are going to try and minimize his sedation. We will try to see if we can wean and extubate today. In the meantime, we are going to continue his antibiotics and his Tamiflu. One-half hour critical care time.
--- NOTE | 2017-03-29 12:38 | PDOC.PN ---
- Subjective Encounter Start Date: 03/29/17 Encounter Start Time: 12:36 Patient seen and examined. No new complaints. No overnight events pt extubated, wants to rest for some time no n/v - Objective MAR Reviewed: Yes Vital Signs & Weight: Vital Signs (12 hours) Temp Pulse Resp BP Pulse Ox 03/29/17 11:00 87 26 H 96 03/29/17 08:29 85 30 H 149/80 H 97 03/29/17 08:00 98.5 F 03/29/17 06:00 17 03/29/17 04:00 25 H 03/29/17 03:59 75 131/73 03/29/17 02:00 21 H 03/29/17 01:39 81 Weight Admit Weight 244 lb 11.41 oz Weight 245 lb 9.519 oz Most Recent Monitor Data Heart Rate from ECG 88 NIBP 163/89 NIBP BP-Mean 124 Respiration from ECG 26 SpO2 100 I&O: 03/28/17 03/29/17 03/30/17 06:59 06:59 06:59 Intake Total 2735 2034 180 Output Total 2845 4020 660 Balance -110 -1986 -480 Result Diagrams: 03/29/17 03:57 03/29/17 03:57 Phys Exam - Physical Examination Constitutional: NAD HEENT: PERRLA Neck: no JVD coarse bs Cardiovascular: no significant murmur Gastrointestinal: non-tender Musculoskeletal: pulses present Neurological: moves all 4 limbs Psychiatric: A&O x 3 Dx/Plan (1) Influenza Code(s): J11.1 - FLU DUE TO UNIDENTIFIED INFLUENZA VIRUS W OTH RESP MANIFEST Status: Acute (2) Acute respiratory failure with hypoxia and hypercarbia Code(s): J96.01 - ACUTE RESPIRATORY FAILURE WITH HYPOXIA; J96.02 - ACUTE RESPIRATORY FAILURE WITH HYPERCAPNIA Status: Acute (3) COPD exacerbation Code(s): J44.1 - CHRONIC OBSTRUCTIVE PULMONARY DISEASE W (ACUTE) EXACERBATION Status: Acute (4) Systolic CHF, acute on chronic Code(s): I50.23 - ACUTE ON CHRONIC SYSTOLIC (CONGESTIVE) HEART FAILURE Status : Acute Comment: ef- 25% (5) Dyslipidemia Code(s): E78.5 - HYPERLIPIDEMIA, UNSPECIFIED Status: Chronic - Plan * doing better * f/u pulm plan * continue current mx
[2017-03-29] MEDS ORDERED: Losartan 25 MG TAB PO SCH (17:00)
[2017-03-29] MEDS: Carvedilol 25 MG TAB PO SCH (17:02)
[2017-03-29] MEDS: Acetaminophen/Codeine 30-300mg Tablet PO PRN ×3 (17:39→23:58)
[2017-03-29] MEDS: clonazePAM 1 MG TAB PO SCH (21:23)
[2017-03-29] MEDS: Losartan 25 MG TAB PO SCH (21:23)
[2017-03-29] MEDS: Oseltamivir 75 MG CAP PO SCH (21:24)
[2017-03-30 04:47] LABS: #Lymphocytes 0.6 thou/uL (1.20-3.40); #Monocytes 0.5 thou/uL (0.11-0.59); #Neutrophils 4.7 thou/uL (1.40-6.50); %Basophils 0.4 % (0.0-1.0); %Eosinophils 0.1 % (0.0-10.0); %Neutrophils 81.5 % (42.0-75.0); Hemoglobin 13.3 g/dL (14.0-18.0); Mean Corpuscular HGB CONC 32.9 g/dL (32.0-36.0); Mean Corpuscular Hemoglobin 30.7 pg (27.0-31.0); Mean Corpuscular Volume 93.5 fl (80.0-94.0); Mean Platelet Volume 8.2 fL (7.4-10.4); Platelet Count 144 thou/uL (130-400); Red Blood Cell (RBC) Count 4.33 mill/uL (4.70-6.10); White Blood Cell (WBC) Count 5.7 thou/uL (4.8-10.8)
[2017-03-30 05:13] LABS: ALT (SGPT) 85 U/L (8-55); AST (SGOT) 45 U/L (5-34); Albumin 3.4 g/dL (3.4-4.8); Alkaline Phosphatase 84 U/L (40-150); Anion Gap 12 mmol/L (10-20); BUN (Urea Nitrogen) 26 mg/dL (8.4-25.7); Bilirubin, Total 0.8 mg/dL (0.2-1.2); Calc. Creatinine Clearance 148 mL/min (70-130); Calcium 9.7 mg/dL (7.8-10.44); Carbon Dioxide 30 mmol/L (23-31); Chloride 100 mmol/L (98-107); Estimated GFR-MDRD Greater than 90; Glucose 152 mg/dL (80-115); Potassium 3.5 mmol/L (3.5-5.1); Protein, Total 6.4 g/dL (5.8-8.1); Sodium 138 mmol/L (136-145)
[2017-03-30] MEDS: Acetaminophen/Codeine 30-300mg Tablet PO PRN ×3 (06:23→18:55)
[2017-03-30] MEDS: Famotidine/PF 20 mg/2ml Vial SLOW IVP SCH (09:10)
[2017-03-30] MEDS: Furosemide 40 MG/4 ML VIAL SLOW IVP SCH (09:10)
[2017-03-30] MEDS: clonazePAM 1 MG TAB PO SCH ×2 (09:10→20:18)
[2017-03-30] MEDS: Enoxaparin Sodium 40 MG/0.4 ML SYRINGE SC SCH (09:10)
[2017-03-30] MEDS: Carvedilol 25 MG TAB PO SCH ×2 (09:10→17:27)
[2017-03-30] MEDS: Oseltamivir 75 MG CAP PO SCH ×2 (09:11→20:18)
--- NOTE | 2017-03-30 09:15 | PRG ---
DATE OF SERVICE: 03/30/2017 He was extubated yesterday. He is better. He is less short of breath, less coughing, less wheezing. PHYSICAL EXAMINATION: VITAL SIGNS: Blood pressure elevated at 162/81, sats are 97% on 3 liters, respirations 20. CHEST: Chest revealed minimal wheezing, bilateral crackles. CARDIAC: Normal S1-S2. No gallops. ABDOMEN: Soft. No masses. LABORATORY: White count 5000, H&H and 13 and 40, platelet count normal. Electrolytes are normal. IMPRESSION: 1. Respiratory failure. 2. Congestive heart failure. 3. Flu. 4. Pneumonia. PLAN: Continue PT. The patient probably can be transferred later on in the afternoon to a monitored bed. His underlying cardiac problem is a big issue. Continue nutrition, PT and supportive care. Will switch him to oral antibiotics. One-half hour critical care time.
[2017-03-30] MEDS: Amiodarone HCl 450 MG, Admixture Fee 1 EACH in Dextrose 5% in Water 250 ML IVPB SCH (11:30)
--- NOTE | 2017-03-30 17:38 | PDOC.PN ---
- Subjective Encounter Start Date: 03/30/17 Encounter Start Time: 17:37 Patient seen and examined. No new complaints. No overnight events - Objective MAR Reviewed: Yes Vital Signs & Weight: Vital Signs (12 hours) Temp Pulse Resp Pulse Ox 03/30/17 16:00 98 F 03/30/17 12:00 97.9 F 03/30/17 08:00 98.3 F 72 24 H 97 Weight Admit Weight 244 lb 11.41 oz Weight 235 lb 7.259 oz Most Recent Monitor Data Heart Rate from ECG 78 NIBP 159/80 NIBP BP-Mean 127 Respiration from ECG 20 SpO2 97 I&O: 03/29/17 03/30/17 03/31/17 06:59 06:59 06:59 Intake Total 2034 2197 200 Output Total 9372 9224 1804 Balance -1985 Result Diagrams: 03/30/17 04:25 03/30/17 04:25 Phys Exam - Physical Examination Constitutional: NAD HEENT: PERRLA Neck: no JVD Respiratory: no wheezing Cardiovascular: no significant murmur Gastrointestinal: non-tender Musculoskeletal: pulses present Neurological: moves all 4 limbs Psychiatric: A&O x 3 Dx/Plan (1) Influenza Code(s): J11.1 - FLU DUE TO UNIDENTIFIED INFLUENZA VIRUS W OTH RESP MANIFEST Status: Acute (2) Acute respiratory failure with hypoxia and hypercarbia Code(s): J96.01 - ACUTE RESPIRATORY FAILURE WITH HYPOXIA; J96.02 - ACUTE RESPIRATORY FAILURE WITH HYPERCAPNIA Status: Acute (3) COPD exacerbation Code(s): J44.1 - CHRONIC OBSTRUCTIVE PULMONARY DISEASE W (ACUTE) EXACERBATION Status: Acute (4) Systolic CHF, acute on chronic Code(s): I50.23 - ACUTE ON CHRONIC SYSTOLIC (CONGESTIVE) HEART FAILURE Status : Acute Comment: ef- 25% (5) Dyslipidemia Code(s): E78.5 - HYPERLIPIDEMIA, UNSPECIFIED Status: Chronic - Plan * continue current plan * pulm input appreciated * pt/ot eval
[2017-03-30] MEDS: Famotidine 20 MG TAB PO SCH (20:19)
[2017-03-30] MEDS: Losartan 25 MG TAB PO SCH (20:19)
[2017-03-31] MEDS: Acetaminophen/Codeine 30-300mg Tablet PO PRN ×3 (02:29→17:00)
[2017-03-31] MEDS: Amiodarone HCl 450 MG, Admixture Fee 1 EACH in Dextrose 5% in Water 250 ML IVPB SCH (03:30)
[2017-03-31 05:19] LABS: #Lymphocytes 1.1 thou/uL (1.20-3.40); #Monocytes 0.8 thou/uL (0.11-0.59); #Neutrophils 5.6 thou/uL (1.40-6.50); %Basophils 0.1 % (0.0-1.0); %Eosinophils 0.5 % (0.0-10.0); %Lymphocytes 14.2 % (21.0-51.0); %Monocytes 10.8 % (0.0-10.0); %Neutrophils 74.3 % (42.0-75.0); Hemoglobin 14.3 g/dL (14.0-18.0); Mean Corpuscular HGB CONC 33.2 g/dL (32.0-36.0); Mean Corpuscular Hemoglobin 30.9 pg (27.0-31.0); Mean Platelet Volume 8.1 fL (7.4-10.4); Platelet Count 173 thou/uL (130-400); Red Blood Cell (RBC) Count 4.64 mill/uL (4.70-6.10); White Blood Cell (WBC) Count 7.5 thou/uL (4.8-10.8)
[2017-03-31 05:53] LABS: ALT (SGPT) 94 U/L (8-55); AST (SGOT) 51 U/L (5-34); Albumin 3.2 g/dL (3.4-4.8); Alkaline Phosphatase 86 U/L (40-150); Anion Gap 14 mmol/L (10-20); BUN (Urea Nitrogen) 29 mg/dL (8.4-25.7); Bilirubin, Total 0.8 mg/dL (0.2-1.2); Calc. Creatinine Clearance 141 mL/min (70-130); Calcium 9.9 mg/dL (7.8-10.44); Carbon Dioxide 26 mmol/L (23-31); Chloride 102 mmol/L (98-107); Estimated GFR-MDRD Greater than 90; Globulin 3.2 g/dL (2.4-3.5); Glucose 102 mg/dL (80-115); Potassium 3.5 mmol/L (3.5-5.1); Protein, Total 6.4 g/dL (5.8-8.1); Sodium 138 mmol/L (136-145)
[2017-03-31 06:07] LABS: Eosinophils 1 % (0-10); Hemoglobin 14.4 g/dL (14.0-18.0); Lymphocytes 24 % (21-51); MDiff Complete? YES; Mean Corpuscular HGB CONC 33.2 g/dL (32.0-36.0); Mean Corpuscular Hemoglobin 30.8 pg (27.0-31.0); Mean Corpuscular Volume 92.7 fl (80.0-94.0); Mean Platelet Volume 8.5 fL (7.4-10.4); Monocytes 11 % (0-10); Neutrophil 63 % (42-75); PLT Morphology Comment Appears Adequate; Platelet Count 169 thou/uL (130-400); RBC Morphology Normal; Reactive Lymphocytes 1 % (0-10); Red Blood Cell (RBC) Count 4.69 mill/uL (4.70-6.10); White Blood Cell (WBC) Count 7.4 thou/uL (4.8-10.8)
[2017-03-31] MEDS: Famotidine 20 MG TAB PO SCH ×2 (09:00→21:36)
[2017-03-31] MEDS: predniSONE 20 MG TAB PO SCH (09:00)
[2017-03-31] MEDS: Oseltamivir 75 MG CAP PO SCH ×2 (09:01→21:36)
[2017-03-31] MEDS: Furosemide 40 MG/4 ML VIAL SLOW IVP SCH (09:01)
[2017-03-31] MEDS: Carvedilol 25 MG TAB PO SCH ×2 (09:01→17:00)
[2017-03-31] MEDS: Enoxaparin Sodium 40 MG/0.4 ML SYRINGE SC SCH (09:01)
[2017-03-31] MEDS: clonazePAM 1 MG TAB PO SCH ×2 (09:01→21:37)
--- NOTE | 2017-03-31 10:52 | PRG ---
DATE OF SERVICE: 03/31/2017 He still remains encephalopathic. PHYSICAL EXAMINATION: VITAL SIGNS: Blood pressure 160/81, sats 92 on 3 liters, temperature 97, pulse 73. CHEST: Extensive rhonchi, crackles. CARDIAC: Normal S1, S2. No gallops. ABDOMEN: Soft, no masses. His I's and O's have been negative. LABORATORY: Shows a white count 7000, H&H 14 and 43, platelet count is normal, BUN and creatinine ar e otherwise unremarkable. IMPRESSION: 1. Respiratory failure. 2. Flu. 3. Chronic obstructive pulmonary disease. 4. End-stage cardiac issue. PLAN: Continue amiodarone, continue Lasix. Supportive care and PT. Prognosis is grave. I will follow.
[2017-03-31] MEDS: Furosemide 40 MG TAB PO SCH (14:36)
--- NOTE | 2017-03-31 16:21 | PDOC.PN ---
- Subjective Encounter Start Date: 03/31/17 Encounter Start Time: 16:19 Patient seen and examined. No new complaints. No overnight events - Objective MAR Reviewed: Yes Vital Signs & Weight: Vital Signs (12 hours) Temp Pulse Resp BP Pulse Ox 03/31/17 16:06 99.8 F H 85 18 153/84 H 93 L 03/31/17 14:11 73 20 03/31/17 12:00 98.9 F 72 17 135/77 94 L 03/31/17 08:00 97.5 F L 73 20 95 03/31/17 07:37 73 20 Weight Admit Weight 244 lb 11.41 oz Weight 237 lb Most Recent Monitor Data Heart Rate from ECG 78 NIBP 159/80 NIBP BP-Mean 127 Respiration from ECG 20 SpO2 97 I&O: 03/30/17 03/31/17 04/01/17 06:59 06:59 06:59 Intake Total 2197 517 480 Output Total 4229 2105 Balance -0 -4052 480 Result Diagrams: 03/31/17 04:43 03/31/17 04:43 Phys Exam - Physical Examination Constitutional: NAD HEENT: PERRLA Neck: no JVD Respiratory: no wheezing Cardiovascular: no significant murmur Gastrointestinal: non-tender Musculoskeletal: pulses present Neurological: moves all 4 limbs Psychiatric: A&O x 3 Dx/Plan (1) Influenza Code(s): J11.1 - FLU DUE TO UNIDENTIFIED INFLUENZA VIRUS W OTH RESP MANIFEST Status: Acute (2) Acute respiratory failure with hypoxia and hypercarbia Code(s): J96.01 - ACUTE RESPIRATORY FAILURE WITH HYPOXIA; J96.02 - ACUTE RESPIRATORY FAILURE WITH HYPERCAPNIA Status: Acute (3) COPD exacerbation Code(s): J44.1 - CHRONIC OBSTRUCTIVE PULMONARY DISEASE W (ACUTE) EXACERBATION Status: Acute (4) Systolic CHF, acute on chronic Code(s): I50.23 - ACUTE ON CHRONIC SYSTOLIC (CONGESTIVE) HEART FAILURE Status : Acute Comment: ef- 25% (5) Dyslipidemia Code(s): E78.5 - HYPERLIPIDEMIA, UNSPECIFIED Status: Chronic - Plan * f/u dr ugalde's plan * pt/ot * f/u card plan * cont amiodarone and lasix
[2017-03-31] MEDS: Amiodarone 200 MG TAB PO SCH (21:37)
[2017-04-01 05:12] LABS: #Lymphocytes 1.4 thou/uL (1.20-3.40); #Monocytes 1.1 thou/uL (0.11-0.59); #Neutrophils 8.4 thou/uL (1.40-6.50); %Basophils 0.1 % (0.0-1.0); %Eosinophils 0.3 % (0.0-10.0); %Lymphocytes 12.6 % (21.0-51.0); %Monocytes 9.9 % (0.0-10.0); %Neutrophils 77.2 % (42.0-75.0); Mean Corpuscular HGB CONC 32.6 g/dL (32.0-36.0); Platelet Count 225 thou/uL (130-400); Red Blood Cell (RBC) Count 5.01 mill/uL (4.70-6.10); White Blood Cell (WBC) Count 10.9 thou/uL (4.8-10.8)
[2017-04-01 05:17] LABS: Band 3 % (5-11); Lymphocytes 14 % (21-51); MDiff Complete? YES; Mean Corpuscular HGB CONC 32.2 g/dL (32.0-36.0); Mean Corpuscular Hemoglobin 29.6 pg (27.0-31.0); Mean Corpuscular Volume 92.1 fl (80.0-94.0); Mean Platelet Volume 7.9 fL (7.4-10.4); Metamyelocyte 1 % (0-0); Monocytes 4 % (0-10); Myelocyte 1 % (0-0); Neutrophil 77 % (42-75); PLT Morphology Comment Appears Adequate; Platelet Count 221 thou/uL (130-400); RBC Distribution Width 14.1 % (11.5-14.5); Red Blood Cell (RBC) Count 5.06 mill/uL (4.70-6.10); White Blood Cell (WBC) Count 10.8 thou/uL (4.8-10.8)
[2017-04-01 05:41] LABS: ALT (SGPT) 83 U/L (8-55); AST (SGOT) 36 U/L (5-34); Albumin 3.5 g/dL (3.4-4.8); Alkaline Phosphatase 89 U/L (40-150); Anion Gap 14 mmol/L (10-20); BUN (Urea Nitrogen) 29 mg/dL (8.4-25.7); Bilirubin, Total 0.8 mg/dL (0.2-1.2); Calc. Creatinine Clearance 129 mL/min (70-130); Calcium 9.8 mg/dL (7.8-10.44); Carbon Dioxide 28 mmol/L (23-31); Chloride 99 mmol/L (98-107); Estimated GFR-MDRD Greater than 90; Globulin 3.3 g/dL (2.4-3.5); Glucose 107 mg/dL (80-115); Potassium 3.2 mmol/L (3.5-5.1); Protein, Total 6.8 g/dL (5.8-8.1); Sodium 138 mmol/L (136-145)
[2017-04-01] MEDS: Acetaminophen/Codeine 30-300mg Tablet PO PRN (06:12)
[2017-04-01 10:13] VITALS: BMI 32.3
[2017-04-01] MEDS: Amiodarone 200 MG TAB PO SCH ×2 (10:43→22:03)
[2017-04-01] MEDS: Oseltamivir 75 MG CAP PO SCH ×2 (10:43→22:03)
[2017-04-01] MEDS: Losartan 25 MG TAB PO SCH (10:43)
[2017-04-01] MEDS: Furosemide 40 MG TAB PO SCH ×2 (10:44→16:06)
[2017-04-01] MEDS: clonazePAM 1 MG TAB PO SCH ×2 (10:44→22:03)
[2017-04-01] MEDS: Carvedilol 25 MG TAB PO SCH ×2 (10:44→16:07)
[2017-04-01] MEDS: predniSONE 20 MG TAB PO SCH (10:44)
[2017-04-01] MEDS: Famotidine 20 MG TAB PO SCH ×2 (10:44→22:03)
[2017-04-01] MEDS: Enoxaparin Sodium 40 MG/0.4 ML SYRINGE SC SCH (10:45)
--- NOTE | 2017-04-01 11:18 | PRG ---
DATE OF SERVICE: 04/01/2017 He is better. He is less short of breath. He is still agitated. PHYSICAL EXAMINATION: VITAL SIGNS: Sats 93-98 on 3 liters, blood pressure 130/74, temperature 97, pulse 93. I's and O's a re 1992 in, 1800 out. CHEST: Chest revealed bilateral crackles. CARDIAC: Normal S1-S2. No gallops. ABDOMEN: Soft, no masses. LABORATORY: White count 10,000. Electrolytes are normal. IMPRESSION: 1. Congestive heart failure. 2. Respiratory failure. 3. Influenza B. 4. Encephalopathy. PLAN: The patient has improved. Hopefully, once his condition stabilizes mentally and physically he can be transferred back to home versus [facility] in [place].
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
[2017-04-01] MEDS ORDERED: Ziprasidone 60 MG CAP PO SCH (13:45)
[2017-04-01] MEDS ORDERED: Ziprasidone 20 MG CAP PO SCH (14:00)
[2017-04-01] MEDS: Potassium Chloride 20 MEQ TAB PO SCH ×2 (16:06→22:02)
[2017-04-02] MEDS: clonazePAM 1 MG TAB PO SCH (08:14)
[2017-04-02] MEDS: Famotidine 20 MG TAB PO SCH ×2 (08:14→21:19)
[2017-04-02] MEDS: Furosemide 40 MG TAB PO SCH (08:14)
[2017-04-02] MEDS: Losartan 25 MG TAB PO SCH (08:14)
[2017-04-02] MEDS: predniSONE 20 MG TAB PO SCH (08:14)
[2017-04-02] MEDS: Amiodarone 200 MG TAB PO SCH ×2 (08:14→21:19)
[2017-04-02] MEDS: Ziprasidone 20 MG CAP PO SCH (08:15)
[2017-04-02] MEDS: Enoxaparin Sodium 40 MG/0.4 ML SYRINGE SC SCH (08:15)
[2017-04-02] MEDS: Carvedilol 25 MG TAB PO SCH ×2 (08:15→17:06)
[2017-04-02] MEDS: Oseltamivir 75 MG CAP PO SCH ×2 (08:15→22:18)
[2017-04-02 09:14] LABS: #Lymphocytes 1.3 thou/uL (1.20-3.40); #Monocytes 1.2 thou/uL (0.11-0.59); %Basophils 0.2 % (0.0-1.0); %Eosinophils 0.3 % (0.0-10.0); %Monocytes 11.6 % (0.0-10.0); Hemoglobin 15.7 g/dL (14.0-18.0); Mean Corpuscular HGB CONC 32.5 g/dL (32.0-36.0); Mean Corpuscular Hemoglobin 29.9 pg (27.0-31.0); Mean Platelet Volume 8.1 fL (7.4-10.4); Platelet Count 240 thou/uL (130-400); RBC Distribution Width 14.3 % (11.5-14.5); Red Blood Cell (RBC) Count 5.24 mill/uL (4.70-6.10); White Blood Cell (WBC) Count 10.5 thou/uL (4.8-10.8)
[2017-04-02 09:43] LABS: Anion Gap 16 mmol/L (10-20); BUN (Urea Nitrogen) 40 mg/dL (8.4-25.7); Calc. Creatinine Clearance 81 mL/min (70-130); Calcium 9.9 mg/dL (7.8-10.44); Carbon Dioxide 26 mmol/L (23-31); Chloride 104 mmol/L (98-107); Estimated GFR-MDRD 54; Glucose 125 mg/dL (80-115); Magnesium 2.3 mg/dL (1.6-2.6); Potassium 3.8 mmol/L (3.5-5.1); Sodium 142 mmol/L (136-145)
--- NOTE | 2017-04-02 11:54 | PDOC.PN ---
- Subjective Encounter Start Date: 04/02/17 Encounter Start Time: 08:25 -: non-verbal Pt seen, much sleepier today. Case discussed iwramone Bernardo, his klonopin has been stopped, will restart cymbalta. Melany napier, back off seroquel. Restraints removed, will attempt to keep out for next 24 hours and adjust his meds. No F/C, no N/V/D/C, no CP, SOB about the same. Sats stable on 2-3L NC no arrhythmias overnight 10 point ROS performed and neg for all systems except as above - Objective MAR Reviewed: Yes Vital Signs & Weight: Vital Signs (12 hours) Temp Pulse Resp BP Pulse Ox 04/02/17 11:45 98.9 F 77 18 144/49 H 92 L 04/02/17 09:23 89 L 04/02/17 09:19 88 20 89 L 04/02/17 08:00 98.4 F 88 18 123/66 90 L 04/02/17 04:00 99.3 F 92 18 128/64 92 L 04/02/17 00:49 78 16 96 Weight Admit Weight 244 lb 11.41 oz Weight 240 lb 4 oz Most Recent Monitor Data Heart Rate from ECG 78 NIBP 159/80 NIBP BP-Mean 127 Respiration from ECG 20 SpO2 97 I&O: 04/01/17 04/02/17 04/03/17 06:59 06:59 06:59 Intake Total 1992 200 Output Total 1800 1300 Balance 192 -1100 Result Diagrams: 04/02/17 09:02 04/02/17 09:02 Radiology Reviewed by me: Yes EKG Reviewed by me: Yes Phys Exam - Physical Examination Constitutional: NAD HEENT: PERRLA, moist MMs, sclera anicteric, oral pharynx no lesions Neck: no nodes, no JVD, supple, full ROM bilateral crackles, slightly prolonged expiration, no wheezes Cardiovascular: RRR, no significant murmur, no rub Gastrointestinal: soft, non-tender, no distention, positive bowel sounds Musculoskeletal: pulses present, edema present Neurological: non-focal, moves all 4 limbs Lymphatic: no nodes Deviation from normal: sleepy, arousable, MS stable when awakened Skin: no rash, normal turgor, cap refill <2 seconds Dx/Plan (1) Influenza Code(s): J11.1 - FLU DUE TO UNIDENTIFIED INFLUENZA VIRUS W OTH RESP MANIFEST Status: Resolved Comment: compelted Rx (2) Sepsis Code(s): A41.9 - SEPSIS, UNSPECIFIED ORGANISM Status: Resolved Qualifiers: Sepsis type: sepsis due to unspecified organism Qualified Code(s): A41.9 - Sepsis, unspecified organism (3) Acute respiratory failure with hypoxia and hypercarbia Code(s): J96.01 - ACUTE RESPIRATORY FAILURE WITH HYPOXIA; J96.02 - ACUTE RESPIRATORY FAILURE WITH HYPERCAPNIA Status: Acute Comment: hypercapnea resolved, hypoxia improving. wean O2 as tolerated (4) COPD exacerbation Code(s): J44.1 - CHRONIC OBSTRUCTIVE PULMONARY DISEASE W (ACUTE) EXACERBATION Status: Acute Comment: sterodis, nebs, O2 as needed (5) Elevated troponin Code(s): R74.8 - ABNORMAL LEVELS OF OTHER SERUM ENZYMES Status: Resolved Comment: demand ischemia. resolved (6) Hypokalemia Code(s): E87.6 - HYPOKALEMIA Status: Resolved Comment: better today, AM labs (7) Systolic CHF, acute on chronic Code(s): I50.23 - ACUTE ON CHRONIC SYSTOLIC (CONGESTIVE) HEART FAILURE Status : Acute Comment: ef- 25%. diurese as tolerated. (8) CAD (coronary artery disease) Code(s): I25.10 - ATHSCL HEART DISEASE OF [place] CORONARY ARTERY W/O ANG PCTRS Status: Chronic Qualifiers: Coronary Disease-Associated Artery/Lesion type: [place] artery [place] vs. transplanted heart: [place] heart Associated angina: without angina Qualified Code(s): I25.10 - Atherosclerotic heart disease of [place] coronary artery without angina pectoris (9) Dyslipidemia Code(s): E78.5 - HYPERLIPIDEMIA, UNSPECIFIED Status: Chronic (10) GERD (gastroesophageal reflux disease) Code(s): K21.9 - GASTRO-ESOPHAGEAL REFLUX DISEASE WITHOUT ESOPHAGITIS Status: Chronic Qualifiers: Esophagitis presence: esophagitis presence not specified Qualified Code(s) : K21.9 - Gastro-esophageal reflux disease without esophagitis (11) Ischemic cardiomyopathy Code(s): I25.5 - ISCHEMIC CARDIOMYOPATHY Status: Chronic Comment: EF 25-30% - Plan cont current plan of care, PT/OT, respiratory therapy, out of bed/ambulate * . to Rehab if approved
--- NOTE | 2017-04-02 12:50 | PRG ---
DATE OF SERVICE: 04/02/2017 SUBJECTIVE: Mr. Palomo Lugo remains encephalopathic this morning. He is not able to eat his break fast. OBJECTIVE: VITAL SIGNS: Sats are 90 on 4 liters, pulse 88, temperature 99, blood pressure 123/66. CHEST: Bilateral rhonchi. CARDIAC: Normal S1, S2. No gallops. ABDOMEN: Soft, no masses. LABORATORY DATA: White count 10,000, H&H is 15 and 40, creatinine is 1.32. IMPRESSION: 1. Prerenal azotemia. 2. Encephalopathy. 3. Chronic obstructive pulmonary disease. 4. Congestive heart failure. 5. Flu. PLAN: Try and minimize all kinds of sedation. Otherwise, he may get reintubated again. Continue ca rdiac care. We will follow. Prognosis is grave.
[2017-04-02] MEDS: DULoxetine 30 MG CAP PO SCH (21:19)
[2017-04-03] MEDS ORDERED: Haloperidol Lactate 5 MG/ML VIAL IM PRN (02:08)
[2017-04-03] MEDS: Acetaminophen/Codeine 30-300mg Tablet PO PRN ×3 (03:02→15:53)
[2017-04-03 06:12] LABS: Chloride 106 mmol/L (98-107); Magnesium 2.3 mg/dL (1.6-2.6); Potassium 3.5 mmol/L (3.5-5.1); Sodium 144 mmol/L (136-145)
[2017-04-03 06:13] LABS: Glucose 130 mg/dL (80-115)
[2017-04-03 06:15] LABS: Anion Gap 15 mmol/L (10-20); Carbon Dioxide 27 mmol/L (23-31)
[2017-04-03 06:17] LABS: BUN (Urea Nitrogen) 57 mg/dL (8.4-25.7); Calc. Creatinine Clearance 68 mL/min (70-130); Estimated GFR-MDRD 44
[2017-04-03] MEDS: Oseltamivir 75 MG CAP PO SCH (08:28)
[2017-04-03] MEDS: DULoxetine 30 MG CAP PO SCH (08:32)
[2017-04-03] MEDS: Ziprasidone 20 MG CAP PO SCH (08:32)
[2017-04-03] MEDS: Carvedilol 25 MG TAB PO SCH (08:32)
[2017-04-03] MEDS: Losartan 25 MG TAB PO SCH (08:32)
[2017-04-03] MEDS: Famotidine 20 MG TAB PO SCH (08:33)
[2017-04-03] MEDS: predniSONE 20 MG TAB PO SCH (08:33)
[2017-04-03] MEDS: Amiodarone 200 MG TAB PO SCH (08:33)
[2017-04-03] MEDS: Enoxaparin Sodium 40 MG/0.4 ML SYRINGE SC SCH (08:46)
--- NOTE | 2017-04-03 08:50 | PRG ---
DATE OF SERVICE: 04/03/2017 This morning he is more responsive, he did not sleep much last night, agitated. PHYSICAL EXAMINATION: VITAL SIGNS: Blood pressure 120/71, sats 98 on 3 liters, respirations 18. CHEST: Chest reveals decreased breath sounds, no wheezing. CARDIAC: Normal S1, S2. ABDOMEN: Soft, no masses. Electrolytes are normal. Creatinine 1.58. White count 10,000. IMPRESSION: 1. Status post respiratory failure. 2. Congestive heart failure. 3. End-stage cardiomyopathy. 4. Chronic obstructive pulmonary disease. 5. Sleep apnea. 6. Renal failure. PLAN: Minimize sedation, PT and supportive care. Long-term prognosis is grave. I will follow.
[2017-04-03] MEDS ORDERED: Furosemide 40 MG TAB PO SCH ×2 (09:00)
[2017-04-03] MEDS ORDERED: Sodium Chloride 0.9% 500 ML IV SCH (12:00)
[2017-04-03 16:13] VITALS: BP 107/65; TEMP 99.1
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
--- NOTE | 2017-04-11 22:42 | EKG ---
Test Reason : POSSIBLE STEMI Blood Pressure : / mmHG Vent. Rate : 104 BPM Atrial Rate : 104 BPM P-R Int : 180 ms QRS Dur : 178 ms QT Int : 418 ms P-R-T Axes : 000 -60 107 degrees QTc Int : 549 ms Sinus tachycardia with Premature atrial complexes Left axis deviation Right bundle branch block Left ventricular hypertrophy with repolarization abnormality Abnormal ECG Confirmed by BASIL SILVA ([id number]), visual effects editor STACEY JAY ([id number]) on 04/11/2017 10:41:00 PM Referred By: BELLA SILVA Confirmed By:BASIL SILVA
--- NOTE | 2017-04-11 22:42 | EKG ---
Test Reason : REPEAT Blood Pressure : / mmHG Vent. Rate : 096 BPM Atrial Rate : 096 BPM P-R Int : 212 ms QRS Dur : 180 ms QT Int : 446 ms P-R-T Axes : 051 -58 112 degrees QTc Int : 563 ms Sinus rhythm with 1st degree A-V block with Premature supraventricular complexes with occasional [place]a ature ventricular complexes Possible Left atrial enlargement Right bundle branch block Left anterior fascicular block Bifascicular block Left ventricular hypertrophy with repolarization abnormality Abnormal ECG Confirmed by BASIL SILVA ([id number]), visual effects editor STACEY JAY ([id number]) on 04/11/2017 10:41:01 PM Referred By: Confirmed By:BASIL SILVA
== END 2017-04-03 16:25 | disposition swing bed (61) | DRG 870 ==
LOC: ERS 21:59 → CCU 03-25 01:30 → 2NO 03-30 18:08 → T4-A 04-02 18:24
PROVIDERS: ADMIT Internal Medicine; ATTEND Internal Medicine
PROC: 5A1955Z Respiratory Ventilation, Greater than 96 Consecutive Hours (ICD-10-PCS; principal; 2017-03-24)
PROC: 0BH17EZ Insertion of Endotracheal Airway into Trachea, Via Natural or Artificial Opening (ICD-10-PCS; 2017-03-24)
PROC: 06HN33Z Insertion of Infusion Device into Left Femoral Vein, Percutaneous Approach (ICD-10-PCS; 2017-03-24)
PROC: B54CZZA Ultrasonography of Left Lower Extremity Veins, Guidance (ICD-10-PCS; 2017-03-24)
DX: A41.89 Other specified sepsis (principal); R65.21 Severe sepsis with septic shock; J96.01 Acute respiratory failure with hypoxia; J44.1 Chronic obstructive pulmonary disease with (acute) exacerbation; J96.02 Acute respiratory failure with hypercapnia; J10.00 Influenza due to other identified influenza virus with unspecified type of pneumonia; I24.8 Other forms of acute ischemic heart disease; E66.01 Morbid (severe) obesity due to excess calories; G93.41 Metabolic encephalopathy; I50.23 Acute on chronic systolic (congestive) heart failure; I47.2 Ventricular tachycardia; I25.5 Ischemic cardiomyopathy; J11.81 Influenza due to unidentified influenza virus with encephalopathy; E87.5 Hyperkalemia; I25.10 Atherosclerotic heart disease of native coronary artery without angina pectoris; E78.5 Hyperlipidemia, unspecified; K21.9 Gastro-esophageal reflux disease without esophagitis; Z53.29 Procedure and treatment not carried out because of patient's decision for other reasons; G47.33 Obstructive sleep apnea (adult) (pediatric); Z68.31 Body mass index [BMI] 31.0-31.9, adult; Z99.81 Dependence on supplemental oxygen; N40.0 Benign prostatic hyperplasia without lower urinary tract symptoms; D50.9 Iron deficiency anemia, unspecified; Z95.1 Presence of aortocoronary bypass graft; Z95.5 Presence of coronary angioplasty implant and graft; I45.10 Unspecified right bundle-branch block; S22.32XD Fracture of one rib, left side, subsequent encounter for fracture with routine healing; V49.9XXD Car occupant (driver) (passenger) injured in unspecified traffic accident, subsequent encounter; G20 Parkinson's disease; R40.2432 Glasgow coma scale score 3-8, at arrival to emergency department; Z79.891 Long term (current) use of opiate analgesic; Z91.19 Patient's noncompliance with other medical treatment and regimen
CPT/HCPCS: 0042T; 31500; 36415; 36416; 36556; 51702; 70450; 70496; 71045; 80048; 80053; 80306; 80307; 81003; 82140; 82330; 82550; 82803; 82805; 83605; 83690; 83735; 83880; 84484; 85007; 85025; 85027; 87040; 87086; 87324; 87449; 87633; 93005; 94002; 94003; 94640; 96365; 96366; 96368; 96375; 99292; A4216; G8978-GP-CL; G8979-GP-CK; G8996-GN-CK; G8997-GN-CJ; J0282; J0692; J1650; J1940; J1956; J2060; J2250; J2704; J2920; J3010; J3490; J7050; J7070; J7506; J7620; S0028

== ENCOUNTER 2017-04-19 16:39 | Inpatient (IN) | payer MEDICARE, BC ==
[2017-04-19 17:22] LABS: #Lymphocytes 0.8 thou/uL (1.20-3.40); #Monocytes 0.3 thou/uL (0.11-0.59); #Neutrophils 2.4 thou/uL (1.40-6.50); %Basophils 0.4 % (0.0-1.0); %Eosinophils 0.3 % (0.0-10.0); %Lymphocytes 22.6 % (21.0-51.0); %Monocytes 9.1 % (0.0-10.0); %Neutrophils 67.5 % (42.0-75.0); Hemoglobin 15.4 g/dL (14.0-18.0); Mean Corpuscular HGB CONC 34.2 g/dL (32.0-36.0); Mean Corpuscular Hemoglobin 32.1 pg (27.0-31.0); Mean Corpuscular Volume 93.9 fl (80.0-94.0); Mean Platelet Volume 8.3 fL (7.4-10.4); Platelet Count 100 thou/uL (130-400); RBC Distribution Width 14.9 % (11.5-14.5); White Blood Cell (WBC) Count 3.5 thou/uL (4.8-10.8)
[2017-04-19 17:27] LABS: PTT 29.8 SEC (22.9-36.1); Prothrombin Time 13.6 SEC (12.0-14.7)
[2017-04-19 17:42] LABS: ALT (SGPT) 67 U/L (8-55); AST (SGOT) 34 U/L (5-34); Albumin 3.4 g/dL (3.4-4.8); Alkaline Phosphatase 97 U/L (40-150); Anion Gap 14 mmol/L (10-20); BUN (Urea Nitrogen) 13 mg/dL (8.4-25.7); Bilirubin, Total 1.3 mg/dL (0.2-1.2); CK (CPK) 18 U/L (30-200); Calc. Creatinine Clearance 0 mL/min (70-130); Calcium 9.5 mg/dL (7.8-10.44); Carbon Dioxide 24 mmol/L (23-31); Chloride 105 mmol/L (98-107); Estimated GFR-MDRD Greater than 90; Globulin 2.7 g/dL (2.4-3.5); Glucose 103 mg/dL (80-115); Potassium 3.9 mmol/L (3.5-5.1); Protein, Total 6.1 g/dL (5.8-8.1); Sodium 139 mmol/L (136-145)
[2017-04-19 17:46] LABS: CKMB 1.8 ng/mL (0-6.6)
[2017-04-19 17:50] LABS: Troponin I 0.957 ng/mL (< 0.028)
[2017-04-19] MEDS ORDERED: Ondansetron ODT 4 MG TAB PO PRN (20:22)
[2017-04-19] MEDS ORDERED: Acetaminophen 325 MG TAB PO PRN (20:22)
[2017-04-19 20:37] VITALS: BMI 29.0
[2017-04-19 20:52] LABS: CKMB 1.5 ng/mL (0-6.6)
[2017-04-19 20:56] LABS: Troponin I 0.993 ng/mL (< 0.028)
[2017-04-19] MEDS: Enoxaparin Sodium 100 MG/ML SYRINGE SC SCH (21:57)
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
[2017-04-19] MEDS: Famotidine 20 MG TAB PO SCH (21:59)
[2017-04-20 05:57] LABS: #Monocytes 0.4 thou/uL (0.11-0.59); #Neutrophils 2.2 thou/uL (1.40-6.50); %Eosinophils 0.5 % (0.0-10.0); %Lymphocytes 27.4 % (21.0-51.0); %Monocytes 11.5 % (0.0-10.0); %Neutrophils 59.5 % (42.0-75.0); Hemoglobin 14.8 g/dL (14.0-18.0); Mean Corpuscular HGB CONC 32.4 g/dL (32.0-36.0); Mean Corpuscular Hemoglobin 30.4 pg (27.0-31.0); Mean Corpuscular Volume 93.9 fl (80.0-94.0); Mean Platelet Volume 8.3 fL (7.4-10.4); Platelet Count 101 thou/uL (130-400); RBC Distribution Width 15.1 % (11.5-14.5); Red Blood Cell (RBC) Count 4.88 mill/uL (4.70-6.10); White Blood Cell (WBC) Count 3.7 thou/uL (4.8-10.8)
[2017-04-20 06:12] LABS: Anion Gap 12 mmol/L (10-20); BUN (Urea Nitrogen) 16 mg/dL (8.4-25.7); Calc. Creatinine Clearance 118 mL/min (70-130); Calcium 9.4 mg/dL (7.8-10.44); Carbon Dioxide 28 mmol/L (23-31); Cardiac Risk 4.8 (Less than 4.5); Chloride 104 mmol/L (98-107); Cholesterol 126 mg/dl (< 200 Desired); Estimated GFR-MDRD Greater than 90; Glucose 111 mg/dL (80-115); HDL Cholesterol 26 mg/dL (>60 Neg Risk); LDL Cholesterol, Calculated 72 mg/dL; Potassium 3.6 mmol/L (3.5-5.1); Sodium 140 mmol/L (136-145); Triglycerides 139 mg/dL (Less than 150)
[2017-04-20 06:15] LABS: CKMB 1.5 ng/mL (0-6.6)
[2017-04-20 06:25] LABS: Troponin I 0.818 ng/mL (< 0.028)
[2017-04-20] MEDS ORDERED: Aspirin 325 MG TAB PO SCH (08:00)
[2017-04-20] MEDS: Enoxaparin Sodium 100 MG/ML SYRINGE SC SCH ×2 (10:07→20:18)
[2017-04-20] MEDS: Famotidine 20 MG TAB PO SCH ×3 (10:08→20:18)
[2017-04-20] MEDS ORDERED: traMADol HCl 50 MG TAB PO PRN (11:43)
[2017-04-20] MEDS ORDERED: Fluticasone Propionate Nasal Spray 16 gm Bottle NASAL PRN (11:43)
[2017-04-20] MEDS ORDERED: Calcium Carbonate 500 MG ChewTAB PO PRN (11:43)
[2017-04-20] MEDS ORDERED: Lorazepam 1 MG TAB PO PRN (11:43)
[2017-04-20] MEDS ORDERED: Bisacodyl 5 MG TAB PO PRN (11:43)
[2017-04-20] MEDS ORDERED: PROVENTIL INHALER 6.7 G (200 INHALATIONS) INH PRN (11:43)
[2017-04-20] MEDS ORDERED: Bisacodyl 10 MG SUPP PR PRN (11:43)
--- NOTE | 2017-04-20 11:58 | PDOC.PN ---
- Subjective Encounter Start Date: 04/20/17 Encounter Start Time: 11:35 Subjective: f/u for NSTEMI tx with Lovenox. Denies any current CP, SOB. -: c/o of poor vision and can't find his glasses. Asking if there is a longer -: bed since he is so tall. - Objective Resuscitation Status: Resuscitation Status FULL:Full Resuscitation MAR Reviewed: Yes Vital Signs & Weight: Vital Signs (12 hours) Temp Pulse Resp BP Pulse Ox 04/20/17 11:50 98.7 F 71 18 132/79 96 04/20/17 08:00 97.7 F 71 18 137/78 98 04/20/17 07:43 98.5 F 71 16 95 04/20/17 03:10 98.5 F 71 16 127/78 95 Weight Weight 219 lb 12.8 oz I&O: 04/19/17 04/20/17 04/21/17 06:59 06:59 06:59 Intake Total 360 Balance 360 Result Diagrams: 04/20/17 05:17 04/20/17 05:17 Additional Labs: Laboratory Tests 04/19/17 04/19/17 04/20/17 17:11 20:20 05:17 Troponin I 0.957 H* 0.993 H* Triglycerides 139 Cholesterol 126 LDL Cholesterol, Calc 72 HDL Cholesterol 26 04/20/17 05:17 Troponin I 0.818 H* Triglycerides Cholesterol LDL Cholesterol, Calc HDL Cholesterol EKG Reviewed by me: Yes (Tele - SR in 70's) Phys Exam - Physical Examination Constitutional: NAD alert, talkative HEENT: PERRLA, oral pharynx no lesions Neck: no JVD, supple Respiratory: no wheezing, clear to auscultation bilateral Cardiovascular: RRR Gastrointestinal: soft, non-tender, no distention, positive bowel sounds Musculoskeletal: no edema, pulses present Neurological: normal sensation, moves all 4 limbs Skin: normal turgor, cap refill <2 seconds Dx/Plan (1) NSTEMI (non-ST elevated myocardial infarction) Code(s): I21.4 - NON-ST ELEVATION (NSTEMI) MYOCARDIAL INFARCTION Status: Acute Comment: Continue Lovenox, ASA, consult Cardiology for any further recommendations (2) CAD (coronary artery disease) Code(s): I25.10 - ATHSCL HEART DISEASE OF [place] CORONARY ARTERY W/O ANG PCTRS Status: Chronic Qualifiers: Coronary Disease-Associated Artery/Lesion type: [place] artery [place] vs. transplanted heart: [place] heart Associated angina: without angina Qualified Code(s): I25.10 - Atherosclerotic heart disease of [place] coronary artery without angina pectoris Comment: Known CAD, see above (3) Dyslipidemia Code(s): E78.5 - HYPERLIPIDEMIA, UNSPECIFIED Status: Chronic Comment: Continue Lipitor 10mg HS (4) Ischemic cardiomyopathy Code(s): I25.5 - ISCHEMIC CARDIOMYOPATHY Status: Chronic Comment: EF 25-30% , no current decompensation (5) Opioid dependence Code(s): F11.20 - OPIOID DEPENDENCE, UNCOMPLICATED Status: Chronic Qualifiers: Comment: Resume home medication regimen - Plan PT/OT, addiction social worker, DVT proph w/SCDs Stable overall -: Continue ASA, Lovenox -: Cardiology consult pending -: Resume home meds -: PT for mobilization * AM lab: CBC
[2017-04-20] MEDS: Acetaminophen/Codeine 30-300mg Tablet PO PRN ×2 (12:15→20:18)
[2017-04-20] MEDS ORDERED: predniSONE 20 MG TAB PO SCH (12:15)
[2017-04-20 13:08] LABS: CKMB 1.7 ng/mL (0-6.6)
[2017-04-20 13:09] LABS: Critical Call Chem Troponin I RESULT DECREASING; Troponin I 0.781 ng/mL (< 0.028)
[2017-04-20] MEDS: Carvedilol 25 MG TAB PO SCH (17:09)
[2017-04-20] MEDS: Tamsulosin HCl 0.4 MG CAP PO SCH (20:18)
[2017-04-20] MEDS: traZODone HCl 50 MG TAB PO SCH (20:18)
[2017-04-20] MEDS: DULoxetine 30 MG CAP PO SCH (20:18)
[2017-04-20] MEDS ORDERED: Amiodarone 200 MG TAB PO SCH (21:00)
--- NOTE | 2017-04-21 00:52 | CON ---
DATE OF CONSULTATION: 04/20/2017 HISTORY OF PRESENT ILLNESS: Palomo Lugo is a 71-year-old white male. He currently resides in a chcf in [place]. He was last admitted in 2017, he had respiratory arrest, was ventilated and found to have influenza A and pneumonia. He was also in septic shock and+ placed on pressors for time. He developed runs of wide complex tachycardia and ultimately he was placed on an amiodarone drip and switched to p.o. amiodarone. He is supposed to be on a tapering dose down to 200 daily at the present time; however, he is still on 400 b.i.d. He has a history of coronary artery disease with ischemic cardiomyopathy and ejection fraction of 25%-30%. He had an ICD at one time; however, this was removed due to infection. He has declined having another one placed. Yesterday, he had 2 to 3 hours of chest discomfort. He does have chronic continuous left upper chest discomfort at the site of previous ICD. However, this was more to the center and right of his chest with pressure sensation. Ultimately, he was brought to the emergency room. His pain has resolved; however, he did have minor increase in his cardiac enzymes. PAST MEDICAL HISTORY: Coronary artery disease, COPD, ischemic cardiomyopathy, ejection fraction of 25%-30%, history of anemia, hypertension, hyperlipidemia, Parkinson disease, obstructive sleep apnea, GERD. OPERATIONS: CABG. He underwent coronary stenting in 2016. ICD was placed and removed, cholecystectomy, hernia repair, left knee replacement. MEDICATIONS: Albuterol 2 puffs q.4 hours p.r.n., amiodarone 400 b.i.d., aspirin 325 daily, Lipitor 10 daily, Dulcolax p.r.n., carvedilol 25 mg b.i.d., Cymbalta 30 b.i.d., Zetia 10 mg daily, Pepcid 20 b.i.d., fenofibrate 145 daily, Flovent p.r.n., furosemide 40 mg daily, Combivent nebs q.6 hours., lidocaine patch, losartan 100 mg daily, MiraLax daily, potassium chloride 20 mEq daily, prednisone 10 mg daily, Flomax 0.4 daily, Seroquel 25 at bedtime, trazodone 50 at bedtime. ALLERGIES: VANCOMYCIN, SYMBICORT, DOXYCYCLINE, HYDROGEN PEROXIDE, LISINOPRIL, LYRICA, PEROXIDE, and STATINS, although he is able to tolerate Crestor. SOCIAL HISTORY: He does not smoke at the present time. He does not drink alcohol. REVIEW OF SYSTEMS: Twelve-point review of systems is otherwise unremarkable. PHYSICAL EXAMINATION: VITAL SIGNS: Blood pressure 134/92, pulse of 86, sinus rhythm. HEENT: PERRL. NECK: Supple. CHEST: Clear. CARDIAC EXAMINATION: S1 and S2 are normal, without any S3, S4 or murmurs. ABDOMEN: Normal bowel sounds, without tenderness or organomegaly. EXTREMITIES: Revealed 1+ pretibial edema. NEUROLOGIC: Patient has a tremor consistent with Parkinson's. SKIN: Warm and dry. LABORATORY DATA: EKG revealed normal sinus rhythm, right bundle-branch block, left ventricular hypertrophy with repolarization abnormality. White count 3700 , hemoglobin 14.8, hematocrit 45.8, platelets 101,000. INR 1.0. Sodium 140, potassium 3.6, chloride 104, carbon dioxide 28, BUN 16, creatinine 0.83. Troponin I is 0.993; however, multiple CK-MBs were normal. Cholesterol 126, triglycerides 139, HDL 26, LDL 72. IMPRESSION: 1. Probable non-ST elevation myocardial infarction with 2 to 3 hours of chest discomfort. 2. Status post coronary artery bypass graft and stent placement in the right posterior descending graft and the right posterior descending coronary artery. 3. Status post respiratory failure 1 month ago. 4. Severe ischemic cardiomyopathy with ejection fraction of 25%-30%. 5. History of ICD placement and removal secondary to infection with the patient declined another. 6. Chronic obstructive pulmonary disease. 7. Hypertension. 8. Hypercholesterolemia. 9. Obstructive sleep apnea. 10. Nonsustained ventricular tachycardia with amiodarone started last admission. 11. Parkinson disease. 12. Chronic back pain. PLAN: The patient currently is on Lovenox. During his last hospitalization, he became very disoriented at times and was not very cooperative and I am not certain how good of a candidate he would be to undergo repeat catheterization. Therefore, at this time, I would prefer to try to treat him medically. His amiodarone dose should be reduced to 200 mg daily. Ranexa 500 mg b.i.d. x1 week and then 1000 b.i.d. would be started. 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 MY
[2017-04-21 08:33] LABS: Lymphocytes 32 % (21-51); MDiff Complete? YES; Mean Corpuscular HGB CONC 33.1 g/dL (32.0-36.0); Mean Corpuscular Hemoglobin 31.3 pg (27.0-31.0); Mean Corpuscular Volume 94.5 fl (80.0-94.0); Mean Platelet Volume 8.6 fL (7.4-10.4); Monocytes 12 % (0-10); Neutrophil 56 % (42-75); PLT Morphology Comment Appears Decreased; Platelet Count 89 thou/uL (130-400); Red Blood Cell (RBC) Count 4.48 mill/uL (4.70-6.10); White Blood Cell (WBC) Count 2.8 thou/uL (4.8-10.8)
[2017-04-21] MEDS: Polyethylene Glycol 3350 17 GM Packet PO SCH (09:51)
[2017-04-21] MEDS: Lidocaine 5% Patch TD SCH (09:51)
[2017-04-21] MEDS: Losartan 25 MG TAB PO SCH (09:51)
[2017-04-21] MEDS: predniSONE 20 MG TAB PO SCH (09:52)
[2017-04-21] MEDS: Potassium Chloride 20 MEQ TAB PO SCH (09:52)
[2017-04-21] MEDS: DULoxetine 30 MG CAP PO SCH ×2 (09:52→21:55)
[2017-04-21] MEDS: Carvedilol 25 MG TAB PO SCH ×2 (09:52→17:11)
[2017-04-21] MEDS: Enoxaparin Sodium 100 MG/ML SYRINGE SC SCH ×2 (09:52→21:46)
[2017-04-21] MEDS: Ezetimibe 10 MG TAB PO SCH (09:52)
[2017-04-21] MEDS: Amiodarone 200 MG TAB PO SCH (09:52)
[2017-04-21] MEDS: Fenofibrate Nanocrystallized 145 MG TAB PO SCH (09:53)
[2017-04-21] MEDS: Famotidine 20 MG TAB PO SCH ×3 (09:53→21:56)
[2017-04-21] MEDS: Aspirin 325 MG TAB PO SCH (09:53)
[2017-04-21] MEDS: Furosemide 40 MG TAB PO SCH (09:53)
[2017-04-21] MEDS: Atorvastatin Calcium 10 MG TAB PO SCH (09:53)
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
[2017-04-21] MEDS: Acetaminophen/Codeine 30-300mg Tablet PO PRN (17:18)
[2017-04-21] MEDS ORDERED: Lidocaine Patch Removal 1 EACH TOP SCH (21:00)
--- NOTE | 2017-04-21 21:08 | EKG ---
Test Reason : COMFORMATION EKG Blood Pressure : / mmHG Vent. Rate : 092 BPM Atrial Rate : 092 BPM P-R Int : 210 ms QRS Dur : 182 ms QT Int : 476 ms P-R-T Axes : 017 -65 108 degrees QTc Int : 588 ms Sinus rhythm with 1st degree A-V block Possible Left atrial enlargement Left axis deviation Left ventricular hypertrophy with QRS widening and repolarization abnormality Right bundle branch block Abnormal ECG When compared with ECG of 19-APR-2017 16:53, (Unconfirmed) No significant change was found Confirmed by LISA GILL ([id number]) on 04/21/2017 9:08:29 PM Referred By: ANY Confirmed By:LISA GILL
[2017-04-21] MEDS: Tamsulosin HCl 0.4 MG CAP PO SCH (21:56)
[2017-04-22] MEDS: traZODone HCl 50 MG TAB PO SCH (05:32)
[2017-04-22] MEDS: Famotidine 20 MG TAB PO SCH ×2 (06:57→09:59)
[2017-04-22 07:18] LABS: Hemoglobin 12.6 g/dL (14.0-18.0); Platelet Count 66 thou/uL (130-400)
[2017-04-22] MEDS: Polyethylene Glycol 3350 17 GM Packet PO SCH (09:53)
[2017-04-22] MEDS: Aspirin 325 MG TAB PO SCH (09:54)
[2017-04-22] MEDS: Potassium Chloride 20 MEQ TAB PO SCH (09:54)
[2017-04-22] MEDS: Atorvastatin Calcium 10 MG TAB PO SCH (09:55)
[2017-04-22] MEDS: predniSONE 20 MG TAB PO SCH (09:55)
[2017-04-22] MEDS: Amiodarone 200 MG TAB PO SCH (09:55)
[2017-04-22] MEDS: DULoxetine 30 MG CAP PO SCH (09:56)
[2017-04-22] MEDS: Carvedilol 25 MG TAB PO SCH (09:56)
[2017-04-22] MEDS: Ezetimibe 10 MG TAB PO SCH (09:57)
[2017-04-22] MEDS: Enoxaparin Sodium 100 MG/ML SYRINGE SC SCH (09:57)
[2017-04-22] MEDS: Lidocaine 5% Patch TD SCH (09:58)
[2017-04-22] MEDS: Fenofibrate Nanocrystallized 145 MG TAB PO SCH (09:58)
[2017-04-22 11:11] VITALS: TEMP 99
[2017-04-22] MEDS: Furosemide 40 MG TAB PO SCH (11:12)
[2017-04-22] MEDS: Losartan 25 MG TAB PO SCH (11:13)
--- NOTE | 2017-04-22 11:14 | PDOC.PN ---
- Subjective Encounter Start Date: 04/22/17 Encounter Start Time: 11:12 Mr. Lugo admits that the pain in his chest has improved. He denies any chest pain. - Objective Resuscitation Status: Resuscitation Status FULL:Full Resuscitation [place] Reviewed: Yes Vital Signs & Weight: Vital Signs (12 hours) Temp Pulse Resp BP Pulse Ox 04/22/17 11:10 99.0 F 87 20 104/64 04/22/17 08:02 98.1 F 76 20 102/58 L 04/22/17 06:58 98.4 F 67 18 120/77 94 L 04/22/17 06:51 80 16 04/22/17 00:18 67 16 94 L 04/21/17 23:42 111/67 Weight Admit Weight 219 lb Weight 219 lb 12.8 oz I&O: 04/21/17 04/22/17 04/23/17 06:59 06:59 06:59 Intake Total 1200 240 Output Total 350 Balance 850 240 Result Diagrams: 04/22/17 06:50 04/22/17 06:50 Phys Exam - Physical Examination HEENT: PERRLA Respiratory: no wheezing, no rales, no rhonchi, clear to auscultation bilateral Cardiovascular: RRR, no significant murmur Gastrointestinal: soft, non-tender, positive bowel sounds Musculoskeletal: no edema Dx/Plan (1) COPD (chronic obstructive pulmonary disease) Status: Acute (2) Hypertension Code(s): I10 - ESSENTIAL (PRIMARY) HYPERTENSION Status: Acute (3) NSTEMI (non-ST elevated myocardial infarction) Code(s): I21.4 - NON-ST ELEVATION (NSTEMI) MYOCARDIAL INFARCTION Status: Acute Comment: Continue Lovenox, ASA, consult Cardiology for any further recommendations (4) Ischemic cardiomyopathy Code(s): I25.5 - ISCHEMIC CARDIOMYOPATHY Status: Chronic Comment: EF 25-30% , no current decompensation - Plan * Angina- patient's symptoms have improved with Ranexa and Isosorbide * HTN- blood pressure is a bit low, likely from the addition of the two medications. This may improve with time * Stable for discharge to the swing bed..
[2017-04-22 14:27] VITALS: BP 115/72
--- NOTE | 2017-04-22 20:58 | DIS ---
PRIMARY CARE PHYSICIAN: Porsche Berman D.O. DATE OF ADMISSION: 04/19/2017 DATE OF DISCHARGE: 04/22/2017 DISCHARGE DISPOSITION: Home. PRIMARY DISCHARGE DIAGNOSES: 1. Angina in the setting of history of coronary artery disease. 2. Chronic systolic heart failure with an ejection fraction of 25-30%. 3. Chronic obstructive pulmonary disease. 4. Hyperlipidemia. 5. Gastroesophageal reflux disease. 6. Ischemic cardiomyopathy. DISCHARGE MEDICATIONS: Please note the Ranexa 500 mg twice daily was added as well as isosorbide mononitrate 30 mg daily. He is to continue trazodone 50 mg at bedtime, tramadol 50 mg q.4 hours as needed, Flomax 0.4 mg p.o. at bedtime, Seroquel 25 mg at bedtime, prednisone 10 mg a day, potassium 20 mEq daily, MiraLax 17 grams daily, Milk of Magnesia 30 mL q.8 as needed, losartan 100 mg daily and please hold for systolic blood pressure less than 110, Ativan 1 mg q.8 hours as needed, Lidoderm patch as needed, albuterol nebs q.6 hours as needed, Lasix 40 mg daily, Flovent 40 mcg inhaled as needed, fenofibrate 145 mg daily, Zetia 10 mg daily, Cymbalta 30 mg twice a day, Coreg 25 mg twice daily, calcium carbonate 1000 mg daily, Dulcolax 10 mg as needed, Lipitor 10 mg daily, aspirin 325 mg daily, amiodarone 200 mg a day, and Tylenol #3 as needed. CODE STATUS: FULL CODE. ALLERGIES: VANCOMYCIN, SYMBICORT, DOXYCYCLINE, LISINOPRIL, PREGABALIN, LYRICA, STATINS, and PEROXIDE. HOSPITAL COURSE: Mr. Lugo is a pleasant 71-year-old gentleman who was admitted to the hospital after having complaints of chest pain. The patient has a fairly complex cardiac history and as such his payment processor, Dr. Randhawa was consulted. He evaluated the patient and felt that conservative management would be the best. The patient has a known history of 3-vessel coronary artery disease. The patient has a patent graft. The patient was started on Ranexa as well as isosorbide mononitrate. He tolerated the addition of these medications well. It was noted that his blood pressure did drop somewhat; however, his blood pressure started off on the lower side, likely as a result of the addition of Ranexa and isosorbide. I suspect this effect will level out in time. In the meantime, lisinopril can be held for systolic blood pressure less than 110. MTDD
--- NOTE | 2017-05-01 06:00 | PQF ---
CARLOTA LAM TONI MD [id number] CLINICAL DOCUMENTATION CLARIFICATION FORM: POST DISCHARGE Addendum to original discharge summary date: 04/22/2017 CARLOTA LAM [id number] CALLIE AGARWAL PLEASE DOCUMENT YOUR RESPONSE BELOW YOUR INPUT IS NEEDED TO CORRECTLY CODE A DIAGNOSIS FOR YOUR PATIENT. DATE: 05/01/17 ATTN: Dr. Armenta Please exercise your independent, professional judgment in responding to the clarification form. Clinical indicators are provided on the bottom of this form for your review Please check appropriate box(s) to clarify if the following diagnosis has been ruled in our ruled out: Please clarify if patient's NSTEMI was: [ X] NSTEMI was a Ruled in diagnosis [ X ] Continue to treat [ ] Resolved [ ] NSTEMI was a Ruled out diagnosis [ ] Cannot rule out diagnosis [ ] Other diagnosis (please specify) [ ] Unable to determine For continuity of documentation, please document condition throughout progress notes and discharge summary. Thank You. CLINICAL INDICATORS - SIGNS / SYMPTOMS / LABS (per H&P) Chest pain. Nausea. Fist degree AV block with some inverted T waves with concern for possible GA. Elevated troponin at 0.957. Per H&P: NSTEMI. Per discharge summary: Angina in the setting of history of coronary artery disease. RISK FACTORS (per H&P) History of CAD with CABG and stenting. Chronic systolic heart failure. Ischemic cardiomyopathy. TREATMENTS (per progress/consultation notes) Ranexa. Isosorbide Mononitrate. Lovenox. (This form is maintained as a part of the permanent medical record) 2014 [employer]. All Rights Reserved Svitlana [email or web address] [phone] MTDD
--- NOTE | 2017-05-23 15:02 | EKG ---
Test Reason : Blood Pressure : / mmHG Vent. Rate : 074 BPM Atrial Rate : 074 BPM P-R Int : 224 ms QRS Dur : 178 ms QT Int : 478 ms P-R-T Axes : 044 -60 120 degrees QTc Int : 530 ms Sinus rhythm with 1st degree A-V block Possible Left atrial enlargement Left axis deviation Right bundle branch block Left ventricular hypertrophy with repolarization abnormality Cannot rule out Septal infarct , age undetermined Abnormal ECG Confirmed by OMARI REARDON ([id number]), news copy editor STACEY JAY ([id number]) on 05/23/2017 3:02:19 PM Referred By: Confirmed By:OMARI REARDON
== END 2017-04-22 16:04 | DRG 303 ==
LOC: ERS 16:39 → 2SE 18:00
PROVIDERS: ADMIT Internal Medicine Infectious Disease; ATTEND Internal Medicine Infectious Disease
DX: I25.709 Atherosclerosis of coronary artery bypass graft(s), unspecified, with unspecified angina pectoris (principal); I50.22 Chronic systolic (congestive) heart failure; J44.9 Chronic obstructive pulmonary disease, unspecified; E78.5 Hyperlipidemia, unspecified; K21.9 Gastro-esophageal reflux disease without esophagitis; I25.5 Ischemic cardiomyopathy; M10.9 Gout, unspecified; G47.33 Obstructive sleep apnea (adult) (pediatric); Z95.1 Presence of aortocoronary bypass graft; Z95.5 Presence of coronary angioplasty implant and graft; Z96.652 Presence of left artificial knee joint; Z88.1 Allergy status to other antibiotic agents; Z88.8 Allergy status to other drugs, medicaments and biological substances; Z79.899 Other long term (current) drug therapy
CPT/HCPCS: 36415; 80048; 80053; 80061; 82550; 82553; 82565; 83735; 84484; 85007; 85014; 85018; 85025; 85027; 85049; 85610; 85730; 93005; 93010; 94640; G8978-GP-CL; G8979-GP-CJ; G8987-GO-CK; G8988-GO-CJ; G8996-GN-CL; G8997-GN-CK; J1650; J7506; J7620

== ENCOUNTER 2017-06-01 19:42 | Emergency (ER) | payer MEDICARE, BC ==
[2017-06-01 21:14] LABS: #Eosinphils 0.1 thou/uL (0.0-0.7); #Lymphocytes 1.2 thou/uL (1.20-3.40); #Monocytes 0.5 thou/uL (0.11-0.59); #Neutrophils 2.8 thou/uL (1.40-6.50); %Basophils 0.4 % (0.0-1.0); %Eosinophils 2.4 % (0.0-10.0); %Lymphocytes 25.4 % (21.0-51.0); %Monocytes 11.5 % (0.0-10.0); %Neutrophils 60.2 % (42.0-75.0); Hemoglobin 12.7 g/dL (14.0-18.0); Mean Corpuscular HGB CONC 33.1 g/dL (32.0-36.0); Mean Corpuscular Hemoglobin 32.2 pg (27.0-31.0); Mean Corpuscular Volume 97.1 fl (80.0-94.0); Mean Platelet Volume 7.7 fL (7.4-10.4); Platelet Count 133 thou/uL (130-400); RBC Distribution Width 14.3 % (11.5-14.5); Red Blood Cell (RBC) Count 3.95 mill/uL (4.70-6.10); White Blood Cell (WBC) Count 4.7 thou/uL (4.8-10.8)
[2017-06-01 21:38] LABS: CKMB 1.7 ng/mL (0-6.6); Troponin I 0.064 ng/mL (< 0.028)
--- NOTE | 2017-06-01 21:46 | RAD ---
RADIOGRAPH CHEST 1 VIEW: HISTORY: 72-year-old male with dyspnea. FINDINGS: There is cardiomegaly. There is no evidence of air space density, pulmonary edema, or pneumothorax. T he lateral costophrenic angles are sharp. IMPRESSION: 1) No acute pulmonary findings. 2) Cardiomegaly without congestive heart failure. 3) Status post coronary artery bypass graft surgery is evidence for coronary atherosclerotic disease. maria r POS: MITRA
[2017-06-01 21:48] LABS: ALT (SGPT) 9 U/L (8-55); AST (SGOT) 16 U/L (5-34); Albumin 3.6 g/dL (3.4-4.8); Alkaline Phosphatase 67 U/L (40-150); Anion Gap 12 mmol/L (10-20); BUN (Urea Nitrogen) 13 mg/dL (8.4-25.7); Bilirubin, Total 0.7 mg/dL (0.2-1.2); Calc. Creatinine Clearance 0 mL/min (70-130); Calcium 9.5 mg/dL (7.8-10.44); Carbon Dioxide 27 mmol/L (23-31); Chloride 106 mmol/L (98-107); Estimated GFR-MDRD Greater than 90; Globulin 2.8 g/dL (2.4-3.5); Glucose 114 mg/dL (80-115); Potassium 3.3 mmol/L (3.5-5.1); Protein, Total 6.4 g/dL (5.8-8.1); Sodium 142 mmol/L (136-145)
[2017-06-01] MEDS ORDERED: Morphine 4 MG/ML VIAL ONE (22:39)
[2017-06-01] MEDS ORDERED: Furosemide 40 MG/4 ML VIAL ONE (22:39)
== END 2017-06-01 23:49 | disposition home or self-care (01) ==
LOC: ERS 19:42
DX: I11.0 Hypertensive heart disease with heart failure (principal); I50.9 Heart failure, unspecified; G89.29 Other chronic pain; K21.9 Gastro-esophageal reflux disease without esophagitis; N40.0 Benign prostatic hyperplasia without lower urinary tract symptoms; E78.5 Hyperlipidemia, unspecified; J44.9 Chronic obstructive pulmonary disease, unspecified; F32.9 Major depressive disorder, single episode, unspecified; Z87.891 Personal history of nicotine dependence
CPT/HCPCS: 71045; 80053; 82553; 83880; 84484; 85025; 93005; 96374; 96375; J1940; J2270

== ENCOUNTER 2017-06-10 09:32 | Inpatient (IN) | payer MEDICARE, BC ==
--- NOTE | 2017-06-10 10:49 | RAD ---
PORTABLE UPRIGHT FRONTAL CHEST RADIOGRAPH: 06/10/2017 HISTORY: Dyspnea. COMPARISON: 06/01/2017 FINDINGS: The cardiac silhouette is prominent, a stable finding. Stable midline sternotomy wires are noted. T here is no pneumothorax present. There is mild hazy density in the medial left lung base, which may signify volume loss or mild air space disease. In addition, there is patchy increased linear density in the medial right lung base. There is mild pulmonary vascular prominence. There is severe bilate ral glenohumeral joint degenerative change. Calcific density inferior to the coracoid process on the left suggests an intraarticular loose body within the left shoulder joint. IMPRESSION: Pulmonary vascular congestion with interstitial prominence in the perihilar regions and lung bases. Findings suggest mild interstitial edema in the proper clinical setting. POS: MITRA
[2017-06-10 11:05] LABS: ALT (SGPT) 14 U/L (8-55); AST (SGOT) 23 U/L (5-34); Albumin 3.4 g/dL (3.4-4.8); Alkaline Phosphatase 70 U/L (40-150); Anion Gap 12 mmol/L (10-20); BUN (Urea Nitrogen) 16 mg/dL (8.4-25.7); Bilirubin, Total 1.1 mg/dL (0.2-1.2); Calc. Creatinine Clearance 0 mL/min (70-130); Carbon Dioxide 27 mmol/L (23-31); Chloride 106 mmol/L (98-107); Estimated GFR-MDRD 90; Globulin 2.5 g/dL (2.4-3.5); Glucose 95 mg/dL (80-115); Potassium 3.8 mmol/L (3.5-5.1); Protein, Total 5.9 g/dL (5.8-8.1); Sodium 141 mmol/L (136-145)
[2017-06-10 11:07] LABS: CKMB 1.4 ng/mL (0-6.6); Troponin I 0.077 ng/mL (< 0.028)
[2017-06-10 11:11] LABS: #Lymphocytes 0.4 thou/uL (1.20-3.40); #Monocytes 0.5 thou/uL (0.11-0.59); #Neutrophils 6.7 thou/uL (1.40-6.50); %Basophils 0.1 % (0.0-1.0); %Eosinophils 0.2 % (0.0-10.0); %Lymphocytes 5.4 % (21.0-51.0); %Monocytes 6.1 % (0.0-10.0); %Neutrophils 88.2 % (42.0-75.0); Hemoglobin 11.8 g/dL (14.0-18.0); MDiff Complete? YES; Macrocytosis SLIGHT = 6-15 cells (100X) (0-5/hpf); Mean Corpuscular HGB CONC 32.1 g/dL (32.0-36.0); Mean Corpuscular Hemoglobin 32.1 pg (27.0-31.0); Mean Platelet Volume 7.9 fL (7.4-10.4); PLT Morphology Comment Appears Decreased; Platelet Count 102 thou/uL (130-400); RBC Distribution Width 13.7 % (11.5-14.5); Red Blood Cell (RBC) Count 3.67 mill/uL (4.70-6.10); White Blood Cell (WBC) Count 7.6 thou/uL (4.8-10.8)
[2017-06-10] MEDS ORDERED: Furosemide 40 MG/4 ML VIAL ONE ×2 (11:27→18:29)
[2017-06-10] MEDS ORDERED: Aspirin 325 MG TAB ONE (12:40)
[2017-06-10 14:25] LABS: Troponin I 0.073 ng/mL (< 0.028)
[2017-06-10] MEDS ORDERED: Senokot 8.6 MG TAB PO PRN ×2 (15:50)
[2017-06-10] MEDS ORDERED: hydrALAZINE 20 MG/ML VIAL SLOW IVP PRN (15:50)
[2017-06-10] MEDS ORDERED: Calcium Carbonate 500 MG ChewTAB PO PRN (15:50)
[2017-06-10] MEDS ORDERED: Bisacodyl 5 MG TAB PO PRN ×2 (15:50)
[2017-06-10] MEDS ORDERED: cloNIDine 0.1 MG TAB PO PRN (15:50)
[2017-06-10] MEDS ORDERED: Ondansetron HCl/PF 4 MG/2 ML Vial IVP PRN (15:50)
[2017-06-10] MEDS ORDERED: Benzonatate 100 MG CAP PO PRN (15:50)
[2017-06-10] MEDS ORDERED: Mag-Al 1200 mg/1200 mg/30 ML UDCUP PO PRN (15:50)
[2017-06-10] MEDS ORDERED: Acetaminophen 325 MG TAB PO PRN (15:50)
[2017-06-10] MEDS ORDERED: Diabetic Tussin 200 MG/10 ML UDCUP PO PRN (15:50)
[2017-06-10] MEDS ORDERED: Carvedilol 25 MG TAB PO SCH (17:00)
--- NOTE | 2017-06-10 17:07 | HP ---
CHIEF COMPLAINT: Shortness of breath. PRIMARY CARE PHYSICIAN: Porsche Berman D.O. HISTORY OF PRESENTING ILLNESS: Mr. Lugo is a patient well known to our facility with multiple hosp italizations, most recently in 04/2017 for angina. History is mainly obtained by the patient himself and electronic medical records have been reviewed. In April, he was treated for angina and was s tarted and discharged on Ranexa and isosorbide after Cardiology has evaluated him. He has refused an y interventions by Cardiology at that time also. Today, he came back for complains of worsening shortness of breath of about 2-4 day duration. He den ies any fever, chills or cough. He reports that the snf food has a whole lot of salt and de spite instructions they kept providing him with salted food. He also has noticed worsening edema on his legs. He normally does not wear oxygen, but stated that he had to be started on oxygen last nigh t. According to the snf report by the nurse, his oxygen saturation is 87% on room air and h e was sent to the ER. Upon presentation to the emergency room, his O2 sat was 92% on room air. He was found to be in CHF w ith pulmonary vascular congestion on chest x-ray and elevated BNP over 1100. EMS gave him one nebuli zer treatment and he received Lasix in the ER and is feeling marginally better. He is now being admi tted for acute on chronic systolic congestive heart failure. A twelve lead EKG showed left ventricul ar hypertrophy with right bundle branch block and first degree AV block. PAST MEDICAL HISTORY: 1. Coronary artery disease, COPD, ischemic cardiomyopathy, EF of 25%-30%. 2. Anemia. 3. Hypertension. 4. Hyperlipidemia. 5. Parkinson's disease. 6. Obstructive sleep apnea. 7. Gastroesophageal reflux disease. PAST SURGICAL HISTORY: 1. Coronary artery bypass graft. 2. Coronary stent in 2016. 3. ICD placement and removal. 4. Cholecystectomy. 5. Hernia repair. 6. Left knee replacement. ALLERGIES: VANCOMYCIN, SYMBICORT, DOXYCYCLINE HYDROGEN PEROXIDE, LISINOPRIL, LYRICA, PEROXIDE STATIN S. SOCIAL HISTORY: He is currently a resident of [facility]. CURRENT MEDICATIONS: Aspirin 325 mg daily, atorvastatin 10 mg daily, carvedilol 25 mg b.i.d., Lasix 40 mg daily, isosorbide mononitrate 30 mg in the morning, potassium chloride 20 mEq daily, losartan 1 00 mg daily, tramadol as needed 50 mg 3 times a day, trazodone 100 mg a day, amiodarone 200 mg a day, Ativan 1 mg every 8 hours, duloxetine 30 mg b.i.d., DuoNebs as needed, Vytorin 10/10 once a day, chu sulosin 0.4 mg daily, Lidoderm patch 1 daily, TriCor 145 mg daily, Tums as needed. REVIEW OF SYSTEMS: The following complete review of systems was negative, unless otherwise mentioned in the HPI or below: Constitutional: Weight loss or gain, ability to conduct usual activities. Skin: Rash, itching. Eyes: Double vision, pain. ENT/Mouth: Nose bleeding, neck stiffness, pain, tenderness. Cardiovascular: Palpitations, dyspnea on exertion, orthopnea. Respiratory: Shortness of breath, wheezing, cough, hemoptysis, fever or night sweats. Gastrointestinal: Poor appetite, abdominal pain, heartburn, nausea, vomiting, constipation, or diarr hea. Genitourinary: Urgency, frequency, dysuria, nocturia. Musculoskeletal: Pain, swelling. Neurologic/Psychiatric: Anxiety, depression. Allergy/Immunologic: Skin rash, bleeding tendency. It is negative except for those mentioned in the history and physical. LABORATORY DATA AND IMAGING DATA: 1. CBC shows hemoglobin 11.8, which seems to be his baseline. Neutrophils 88% with no leukocytosis. Serum chemistries unremarkable. Troponin 0.077 with repeat troponin 0.073. BNP 1130. 2. Chest x-ray reviewed by myself shows pulmonary vascular congestion. PHYSICAL EXAMINATION: VITAL SIGNS: Upon presentation, blood pressure 118/63, pulse of 72, respirations 19, saturating 92% on room air and temperature 98.4. GENERAL: He is tachypneic, but awake, alert, and oriented x3. He appears well nourished. HEENT: Mucous membranes are slightly dry. No oropharyngeal exudate or erythema. Head is normocepha lic, atraumatic. Pupils are equal, reactive to light and accommodation. NECK: Supple without any lymphadenopathy, JVD or bruit. CHEST: Clear to auscultation without any wheezing, rales or rhonchi. Rhythm is regular without any murmurs, rubs gallops. Bibasilar crackles heard bilaterally. ABDOMEN: Soft, nontender, and nondistended. EXTREMITIES: Show pitting edema +3 bilaterally extending from the feet all the way up to his thighs. NEUROLOGIC: Examination is nonfocal. SKIN: Free of any rashes or bruises. I feel warm and dry to touch. PSYCHIATRIC: Agitation. IMPRESSION AND PLAN: 1. Acute hypoxic respiratory failure. This is secondary to acute systolic congestive heart failure. The patient has refused automated implantable cardioverter-defibrillator placement in the past. We will reconsult Cardiology for reconsideration. When I asked the patient about this, he states that he never refused. Nevertheless, he will be continued on IV diuresis with strict I's and O's and flui d restriction. His last echocardiogram was done recently in 10/2016. At this time, it will not be r epeated. We will monitor kidney functions and restart home medications that are cardiac prudent. 2. History of coronary artery disease. We will restart his aspirin, beta magaly, statin, and LUCERO i nhibitor at this time. 3. History of chronic obstructive pulmonary disease. At this time, we will start him on nebulizers scheduled and as needed basis. He might also have a component of chronic obstructive pulmonary disea se exacerbation in his presentation with shortness of breath today. 4. Dyslipidemia. Restart statin. 5. History of ischemic cardiomyopathy with chronic systolic heart failure. We will consult [facility] and cardiac rehabilitation and as above continue diuresis with strict I's and O's. Auto mated implantable cardioverter-defibrillator consideration once again if Cardiology recommends. 6. History of hypertension. We will restart his home medications with close monitoring of his blood pressure as he is running low and he is also on diuretics. 7. Benign prostatic hypertrophy. Continue with Flomax. 8. Code status: FULL CODE. Discussed with the patient. 9. Deep venous thrombosis and gastrointestinal prophylaxis. DISPOSITION: Mr. Lugo is currently being admitted for acute CHF exacerbation. Estimated length of stay is at least 2-3 midnights. At this time, the idea is to diurese him overnight with a quick tra nsition back to snf, but this may change depending upon his clinical course and Cardiology r ecommendations.
[2017-06-10 17:21] LABS: Troponin I 0.068 ng/mL (< 0.028)
[2017-06-10] MEDS: Lorazepam 1 MG TAB PO PRN (17:28)
[2017-06-10] MEDS: Carvedilol 25 MG TAB PO SCH (17:29)
[2017-06-10] MEDS ORDERED: Nitroglycerin 2% Ointment 1 INCH/1 GM Packet TOP SCH (18:45)
[2017-06-10] MEDS ORDERED: Furosemide 40 MG/4 ML VIAL SLOW IVP SCH (18:45)
[2017-06-10] MEDS ORDERED: Morphine 2 MG/ML SYRINGE SLOW IVP SCH (18:45)
--- NOTE | 2017-06-10 19:00 | PDOC.EVN ---
Event Note - Event Note Event Note: RN called - Pt is in resp distress. CXR earlier showed Pulm edema. Will transfer to IMCU for close monitoring. NIPPV. One dose of 2 mg IV Morphine and 1 inch Nitro patch. Cont tele monitoring
[2017-06-10] MEDS ORDERED: methylPREDNISolone Sod Succ/PF 125 MG/2 ML VIAL IVP SCH (19:30)
[2017-06-10] MEDS: guaiFENesin ER 600 MG TAB PO SCH ×2 (22:17→23:30)
[2017-06-10] MEDS: DULoxetine 30 MG CAP PO SCH (22:17)
[2017-06-10] MEDS: traZODone HCl 50 MG TAB PO SCH (23:29)
[2017-06-11] MEDS: traMADol HCl 50 MG TAB PO PRN (02:11)
--- NOTE | 2017-06-11 02:35 | CON ---
HISTORY OF PRESENT ILLNESS: Mr. Lugo is a pleasant gentleman, I interviewed him and interviewed his son. Apparently, he has had progressive lower extremity edema and [facility]ness [facility] He was subsequently transferred here for hypoxemia and he has been admitted. He has had Lasix in one breathing treatment in the emergency room and then had another nebulizer treatment on arrival to the floor, he said he felt better. He says he did not urinate much after the Lasix in the emergency room, but he does not have a Colon in, not sure how much urine output he had. He did say the breathing treatment helped him a lot. He has had purulent sputum today as well. PAST MEDICAL HISTORY: Remarkable for; 1. Coronary artery disease 2. Ischemic cardiomyopathy with an ejection fraction of 25%. 3. History of chronic obstructive pulmonary disease. He said he has seen Dr. Bernardo in the past, he thinks. 4. History of hypertension. 5. History of lipid disorder. 6. History of Parkinson's. 7. History of sleep apnea. 8. History of reflux disease. 9. History of coronary artery bypass grafting in the past. 10. History of an ICD in the past that apparently was removed. 11. History of coronary artery stenting. 12. History of cholecystectomy. 13. History of a herniorrhaphy. 14. History of a knee replacement. 15. History of a long hospitalization earlier this year. He was seen by Dr. Ott and Dr. Randhawa on admission. 16. History of an AICD infection which I believe led to the removal, apparently has declined to have another defibrillator placed. 17. History of statin intolerance. 18. History of noncompliance with CPAP. 19. History of anxiety. 20. History of BPH. 21. History of anemia felt to be secondary to iron deficiency in the past. 22. History of chronic kidney disease. 23. History of a bare metal stent being placed in his right posterolateral graft. 24. History of bilateral common iliac artery repairs in 2015. ALLERGIES: Reports intolerance to VANCOMYCIN, BUDESONIDE, DOXYCYCLINE, FORMETEROL, HYDROGEN PEROXIDE, LISINOPRIL, LYRICA, STATIN DRUGS. SOCIAL HISTORY: He is a smoker from when he was 11 years old until he was probably in his late 40s. He denies drinking. He has never used drugs. FAMILY HISTORY: Strongly positive for heart disease. REVIEW OF SYSTEMS: 12 point system reviewed otherwise negative. PHYSICAL EXAMINATION: GENERAL: He was lying almost flat in bed. His bed was at approximately 15 degrees at the head. He was in no distress. He was tachypneic with a respiratory rate in the high 20s. He was not using accessory muscles. No signs of respiratory muscle fatigue. VITAL SIGNS: Afebrile, heart rate 74, respiratory rates as mentioned in the 20s , oximetry is 97% on 2 liter nasal cannula. HEENT: Pupils are equal. Sclerae are anicteric. NECK: Supple. LUNGS: Remarkable for rhonchus, wheezes bilaterally. Really, he was having trouble clearing his secretions. HEART: Regular rhythm. No S3. ABDOMEN: Soft and nontender. EXTREMITIES: Without clubbing, cyanosis, or edema. LABORATORY AND X-RAY FINDINGS: Chest radiograph was reviewed by me, shows an increase in interstitial markings. BNP was over 1100. White count 7.6, hemoglobin 11.8, platelets 102,000. Sodium 141, potassium 3.8, chloride 106, bicarb 27, BUN 16, creatinine 0.84, glucose 147. IMPRESSION: I suspect he has mixture of asthmatic bronchitis/ chronic obstructive pulmonary disease exacerbation and congestive heart failure. Radiographically and clinically, his heart failure is the smaller of the 2 problems unless he has a lot of cardiac asthma. He does have a history of obstructive lung disease and he is coughing up purulent green sputum. He will be treated with IV steroids, nebulized treatments, antimicrobial therapy. I have recommended a nurse to place a Colon, so we can quantitate urine output. He is extremely weak. He does have edema to his knees and says he would be unable to walk to the bathroom. I do not see anyway we can get around placing a Colon. Hopefully, he will improve relatively quickly deconditioning and weakness is the biggest issue facing him in addition to his cardiomyopathy and his chronic obstructive pulmonary disease. I met with the son and him and answered all their questions. This is a 70-minutes consult with greater than 50 % of the time was spent coordinating care. I do not feel that he needs to be transferred to the ICU for BiPAP. He has no signs of respiratory muscle fatigue and he is certainly only mildly hypoxic at this point. I think he can be managed on the telemetry unit. MY
[2017-06-11 04:49] LABS: #Lymphocytes 0.3 thou/uL (1.20-3.40); #Monocytes 0.1 thou/uL (0.11-0.59); #Neutrophils 3.8 thou/uL (1.40-6.50); %Basophils 0.1 % (0.0-1.0); %Eosinophils 0.1 % (0.0-10.0); %Lymphocytes 7.1 % (21.0-51.0); %Monocytes 1.9 % (0.0-10.0); %Neutrophils 90.8 % (42.0-75.0); Hemoglobin 11.1 g/dL (14.0-18.0); Mean Corpuscular HGB CONC 33.6 g/dL (32.0-36.0); Mean Corpuscular Hemoglobin 33.5 pg (27.0-31.0); Mean Corpuscular Volume 99.7 fl (80.0-94.0); Mean Platelet Volume 8.5 fL (7.4-10.4); Platelet Count 92 thou/uL (130-400); RBC Distribution Width 13.8 % (11.5-14.5); Red Blood Cell (RBC) Count 3.32 mill/uL (4.70-6.10); White Blood Cell (WBC) Count 4.2 thou/uL (4.8-10.8)
[2017-06-11 05:05] LABS: Anion Gap 12 mmol/L (10-20); BUN (Urea Nitrogen) 21 mg/dL (8.4-25.7); Calc. Creatinine Clearance 130 mL/min (70-130); Calcium 8.8 mg/dL (7.8-10.44); Carbon Dioxide 26 mmol/L (23-31); Chloride 106 mmol/L (98-107); Estimated GFR-MDRD Greater than 90; Glucose 117 mg/dL (80-115); Potassium 3.5 mmol/L (3.5-5.1); Sodium 140 mmol/L (136-145)
[2017-06-11] MEDS: Lorazepam 1 MG TAB PO PRN ×4 (05:58→18:01)
[2017-06-11] MEDS: Furosemide 40 MG/4 ML VIAL SLOW IVP SCH ×2 (05:58→14:02)
--- NOTE | 2017-06-11 09:38 | PRG ---
DATE OF SERVICE: 06/11/2017 This is a 72-year-old morbidly obese gentleman well known to our service with increasing shortness of breath. He is from some detention. He denies any chest pain, chills or sweats. He has known history of cardiomyopathy. His EF is in th e 20s. He has a history of known sleep apnea, noncompliant with his CPAP, COPD. This morning he is on BiPAP, he is conversing. He said he is somewhat better, but still short of kylah ath. No fever or chills. PHYSICAL EXAMINATION: VITAL SIGNS: His sats are 95% on his BiPAP, pulse 80, blood pressure is 144/75. His I's and O's ove r the last 24 hours have been difficult to assess. Apparently 360 in, 800 out. CHEST: Chest reveals decreased breath sounds, prolonged expiration, minimal wheezing. CARDIAC: Normal S1, S2, no gallops. ABDOMEN: Soft. BNP is 1130. His x-ray shows cardiomegaly, but no obvious interstitial edema. White count 4000, H&H 11 and 36, platelet count is low 92. IMPRESSION: 1. Chronic respiratory failure. 2. Chronic obstructive pulmonary disease. 3. Congestive heart failure. 4. Sleep apnea. 5. Severe deconditioning. 6. Thrombocytopenia, chronic. PLAN: He is on neb treatments q.3h. When he is better can be cut back to 4 hours. He is on a lot o f cardiac medication including the steroids, diuretics. Once again, I will add Dulera to his treatment. Continue cardiac care otherwise. Nocturnal CPAP and BiPAP. I will follow.
[2017-06-11] MEDS: Losartan 25 MG TAB PO SCH (10:12)
[2017-06-11] MEDS: Fenofibrate Nanocrystallized 145 MG TAB PO SCH (10:12)
[2017-06-11] MEDS: Enoxaparin Sodium 40 MG/0.4 ML SYRINGE SC SCH (10:12)
[2017-06-11] MEDS: Amiodarone 200 MG TAB PO SCH (10:12)
[2017-06-11] MEDS: DULoxetine 30 MG CAP PO SCH ×3 (10:13→22:30)
[2017-06-11] MEDS: Atorvastatin Calcium 10 MG TAB PO SCH (10:13)
[2017-06-11] MEDS: Ezetimibe 10 MG TAB PO SCH (10:13)
[2017-06-11] MEDS: Aspirin 325 MG TAB PO SCH (10:14)
[2017-06-11] MEDS: Potassium Chloride 20 MEQ TAB PO SCH (10:14)
[2017-06-11] MEDS: Carvedilol 25 MG TAB PO SCH ×2 (10:14→17:21)
[2017-06-11] MEDS: guaiFENesin ER 600 MG TAB PO SCH ×2 (10:15→21:08)
--- NOTE | 2017-06-11 11:02 | PDOC.PN ---
- Subjective Encounter Start Date: 06/11/17 Encounter Start Time: 06:45 -: old records requested/rev Patient seen and examined. last night pt was having respi distress, he had code green this morning, pt was transferred to [facility], he required bipap - Objective MAR Reviewed: Yes Vital Signs & Weight: Vital Signs (12 hours) Temp Pulse Resp BP Pulse Ox 06/11/17 10:42 102 H 32 H 91 L 06/11/17 09:10 98.3 F 87 30 H 98 06/11/17 07:08 98.3 F 87 30 H 145/77 H 100 06/11/17 06:12 95 39 H 100 06/11/17 06:06 95 35 H 95 06/11/17 04:00 97.5 F L 77 18 134/62 98 06/11/17 03:57 79 18 98 06/11/17 00:06 72 17 99 I&O: 06/10/17 06/11/17 06/12/17 06:59 06:59 06:59 Intake Total 360 Output Total 800 Balance -440 Result Diagrams: 06/11/17 04:15 06/11/17 04:15 Radiology Reviewed by me: Yes (chest xray) EKG Reviewed by me: Yes (nsr) Phys Exam - Physical Examination Constitutional: NAD HEENT: PERRLA, moist MMs, sclera anicteric Neck: no JVD, supple Respiratory: wheezing present rales+ Cardiovascular: RRR, no significant murmur, no rub Gastrointestinal: soft, non-tender, no distention, positive bowel sounds Musculoskeletal: pulses present, edema present Neurological: non-focal, normal sensation Lymphatic: no nodes Psychiatric: normal affect Skin: no rash, normal turgor Dx/Plan (1) Acute on chronic systolic (congestive) heart failure Code(s): I50.23 - ACUTE ON CHRONIC SYSTOLIC (CONGESTIVE) HEART FAILURE Status : Acute (2) Acute respiratory failure with hypoxia Code(s): J96.01 - ACUTE RESPIRATORY FAILURE WITH HYPOXIA Status: Acute (3) COPD exacerbation Code(s): J44.1 - CHRONIC OBSTRUCTIVE PULMONARY DISEASE W (ACUTE) EXACERBATION Status: Acute (4) Anxiety and depression Code(s): F41.9 - ANXIETY DISORDER, UNSPECIFIED; F32.9 - MAJOR DEPRESSIVE DISORDER, SINGLE EPISODE, UNSPECIFIED Status: Chronic (5) BPH (benign prostatic hyperplasia) Code(s): N40.0 - BENIGN PROSTATIC HYPERPLASIA WITHOUT LOWER URINRY TRACT SYMP Status: Chronic (6) CAD (coronary artery disease) Code(s): I25.10 - ATHSCL HEART DISEASE OF [place] CORONARY ARTERY W/O ANG PCTRS Status: Chronic Qualifiers: Coronary Disease-Associated Artery/Lesion type: [place] artery [place] vs. transplanted heart: [place] heart Associated angina: without angina Qualified Code(s): I25.10 - Atherosclerotic heart disease of [place] coronary artery without angina pectoris Comment: Known CAD, see above (7) Dyslipidemia Code(s): E78.5 - HYPERLIPIDEMIA, UNSPECIFIED Status: Chronic Comment: Continue Lipitor 10mg HS (8) GERD (gastroesophageal reflux disease) Code(s): K21.9 - GASTRO-ESOPHAGEAL REFLUX DISEASE WITHOUT ESOPHAGITIS Status: Chronic Qualifiers: Esophagitis presence: esophagitis presence not specified Qualified Code(s) : K21.9 - Gastro-esophageal reflux disease without esophagitis (9) Gout Code(s): M10.9 - GOUT, UNSPECIFIED Status: Chronic (10) Hypertension Code(s): I10 - ESSENTIAL (PRIMARY) HYPERTENSION Status: Chronic (11) Ischemic cardiomyopathy Code(s): I25.5 - ISCHEMIC CARDIOMYOPATHY Status: Chronic Comment: EF 25-30% , no current decompensation (12) Chronic respiratory failure with hypoxia Code(s): J96.11 - CHRONIC RESPIRATORY FAILURE WITH HYPOXIA Status: Chronic - Plan cont current plan of care, continue antibiotics, respiratory therapy * continue bipap * continue iv lasix * continue iv solumedrol * medication reviewed as below * symptomatic treatment * will closely monitor * pulmonary following. Review of Systems - Review of Systems Constitutional: negative: fever, chills, sweats, weakness, malaise, other Eyes: negative: Pain, Vision Change, Conjunctivae Inflammation, Eyelid Inflammation, Redness, Other ENT: negative: Ear Pain, Ear Discharge, Nose Pain, Nose Discharge, Nose Congestion, Mouth Pain, Mouth Swelling, Throat Pain, Throat Swelling, Other Respiratory: Cough, Shortness of Breath, SOB with Excertion. negative: Dry, Hemoptysis, Pleuritic Pain, Sputum, Wheezing Cardiovascular: orthopnea. negative: chest pain, palpitations, paroxysmal nocturnal dyspnea, edema, light headedness, other Gastrointestinal: negative: Nausea, Vomiting, Abdominal Pain, Diarrhea, Constipation, Melena, Hematochezia, Other Genitourinary: negative: Dysuria, Frequency, Incontinence, Hematuria, Retention , Other Musculoskeletal: negative: Neck Pain, Shoulder Pain, Arm Pain, Back Pain, Hand Pain, Leg Pain, Foot Pain, Other Skin: negative: Rash, Lesions, Sudhakar, Bruising, Other - Medications/Allergies Allergies/Adverse Reactions: Allergies Allergy/AdvReac Type Severity Reaction Status Date / Time vancomycin Allergy Severe Verified 04/19/17 20:35 budesonide [From Symbicort] Allergy Verified 04/19/17 20:35 doxycycline Allergy Verified 04/19/17 20:35 formoterol [From Symbicort] Allergy Verified 04/19/17 20:35 formoterol fumarate Allergy Verified 04/19/17 20:35 [From Symbicort] hydrogen peroxide Allergy Verified 04/19/17 20:35 lisinopril Allergy Verified 04/19/17 20:35 pregabalin [From Lyrica] Allergy Verified 04/19/17 20:35 Buzscge-Czo-Kda Reductase Allergy emotional/d Verified 04/19/17 20:35 Inhibitor epressed peroxide Allergy topical/inf Uncoded 04/19/17 20:35 ection Medications: Current Medications Acetaminophen (Tylenol) 650 mg PO Q4H PRN PRN Reason: Headache/Fever or Pain Al Hydroxide/Mg Hydroxide (Maalox) 30 ml PO Q6H PRN PRN Reason: Heartburn or Indigestion Albuterol/Ipratropium (Duoneb) 3 ml NEB [id number] PRN PRN Reason: SOB &/or Wheezing Albuterol/Ipratropium (Duoneb) 3 ml NEB [id number] [facility] Last Admin: 06/11/17 10:42 Dose: 3 ml Amiodarone HCl (Cordarone) 200 mg PO DAILY [facility] Last Admin: 06/11/17 10:12 Dose: 200 mg Aspirin (Aspirin) 325 mg PO DAILY [facility] Last Admin: 06/11/17 10:14 Dose: 325 mg Atorvastatin Calcium (Lipitor) 10 mg PO DAILY [facility] Last Admin: 06/11/17 10:13 Dose: 10 mg Benzonatate (Tessalon) 100 mg PO Q4H PRN PRN Reason: Cough Bisacodyl (Dulcolax) 10 mg PO DAILYPRN PRN PRN Reason: Constipation Calcium Carbonate (Tums) 1,000 mg PO Q4H PRN PRN Reason: Heartburn or Indigestion Carvedilol (Coreg) 25 mg PO BID-[facility] Last Admin: 06/11/17 10:14 Dose: 25 mg Clonidine (Catapres) 0.1 mg PO Q4H PRN PRN Reason: Systolic BP > 160 Duloxetine HCl (Cymbalta) 30 mg PO BID [facility] Last Admin: 06/11/17 10:13 Dose: 30 mg Ezetimibe (Zetia) 10 mg PO DAILY [facility] Last Admin: 06/11/17 10:13 Dose: 10 mg Enoxaparin Sodium (Lovenox) 40 mg SC 0900 [facility] Last Admin: 06/11/17 10:12 Dose: 40 mg Fenofibrate (Tricor) 145 mg PO DAILY [facility] Last Admin: 06/11/17 10:12 Dose: 145 mg Furosemide (Lasix) 40 mg SLOW IVP 0600,1400 [facility] Last Admin: 06/11/17 05:58 Dose: 40 mg Guaifenesin (Robitussin Sf) 200 mg PO Q4H PRN PRN Reason: Cough Guaifenesin (Mucinex) 1,200 mg PO Q12HR [facility] Last Admin: 06/11/17 10:15 Dose: 1,200 mg Hydralazine HCl (Apresoline) 10 mg SLOW IVP Q4H PRN PRN Reason: Systolic BP > 170 Isosorbide Mononitrate (Imdur Er) 30 mg PO DAILY [facility] Last Admin: 06/11/17 10:13 Dose: 30 mg Levofloxacin (Levaquin) 500 mg PO 1999 [facility] Last Admin: 06/10/17 22:17 Dose: 500 mg Lidocaine (Lidoderm 5% Patch) 1 patch TD DAILY [facility] Lorazepam (Ativan) 1 mg PO Q4H PRN PRN Reason: Anxiety/Agitation Last Admin: 06/11/17 09:58 Dose: 1 mg Losartan Potassium (Cozaar) 100 mg PO DAILY [facility] Last Admin: 06/11/17 10:12 Dose: 100 mg Methylprednisolone Sodium Succinate (Solu-Medrol) 20 mg IVP Q6HR [facility] Last Admin: 06/11/17 05:58 Dose: 20 mg Miscellaneous Medication (Lidocaine Patch Removal) 1 each TOP QPM DANICA Mometasone Furoate/Formoterol Fumar (Dulera 200 Mcg/5 Mcg Inhaler) 2 puff INH BID-RT [facility] Ondansetron HCl (Zofran) 4 mg IVP Q6H PRN PRN Reason: Nausea/Vomiting Potassium Chloride (K-Dur) 20 meq PO DAILY [facility] Last Admin: 06/11/17 10:14 Dose: 20 meq Ranolazine (Ranexa) 500 mg PO BID [facility] Last Admin: 06/11/17 10:13 Dose: 500 mg Senna (Senokot) 2 tab PO HSPRN PRN PRN Reason: Constipation Tramadol HCl (Ultram) 50 mg PO Q4H PRN PRN Reason: Moderate Pain (4-6) Last Admin: 06/11/17 02:11 Dose: 50 mg Trazodone HCl (Desyrel) 50 mg PO HS [facility] Last Admin: 06/10/17 23:29 Dose: Not Given
[2017-06-11] MEDS ORDERED: Morphine 10 MG/ML VIAL SLOW IVP SCH (11:30)
[2017-06-11] MEDS: Lidocaine 5% Patch TD SCH (12:40)
[2017-06-11] MEDS: Morphine 4 MG/ML VIAL IV PRN ×2 (15:48→21:16)
[2017-06-11] MEDS ORDERED: Vecuronium 10 MG VIAL ONE (16:10)
[2017-06-11] MEDS: Mometasone/Formoterol 120 PUFF INHALER INH SCH (18:36)
[2017-06-11] MEDS: traZODone HCl 50 MG TAB PO SCH (21:09)
[2017-06-11] MEDS: Lidocaine Patch Removal 1 EACH TOP SCH (23:56)
[2017-06-12] MEDS: Morphine 4 MG/ML VIAL IV PRN ×3 (02:07→13:58)
--- NOTE | 2017-06-12 02:09 | CON ---
DATE OF CONSULTATION: 06/11/2017 HISTORY OF PRESENT ILLNESS: Andrew Lugo is a 72-year-old white male that I have known for many years. He currently resides in a longterm in [place]. He was just admitted in March and April 2017. In 03/2017, he was admitted with respiratory arrest, placed on a ventilator. He was in septic shock and on pressors for a time. Ultimately, he was placed on amiodarone drip for runs of wide complex tachycardia. He was supposed to be on a tapering dose of the amiodarone when he came in 04/2017. He was still on 400 b.i.d. He has history of coronary artery disease status post CABG and has an ischemic cardiomyopathy with ejection fraction of 25% to 30%. At one time, he had an ICD ; however, this was removed due to infection and he declined having another one placed. In 06/2016, he was admitted with chest discomfort. Due to his history of coronary artery disease, it was felt best to try to treat him medically, especially with his respiratory status. He was started on Ranexa and isosorbide mononitrate. He now is admitted with a 2-3 day history of worsening shortness of breath. He denied any fevers or chills. He has also begun to notice worsening of edema of both his legs. Chest x-ray revealed pulmonary vascular congestion and interstitial edema. He does complain of continual chest discomfort. PAST MEDICAL HISTORY: Coronary artery disease, COPD, ischemic cardiomyopathy, ejection fraction of 25% to 30%, history of anemia, hypertension, hyperlipidemia , Parkinson's disease, obstructive sleep apnea, GERD, wide complex tachycardia treated with amiodarone. OPERATIONS: CABG. He underwent coronary stenting in 2015. ICD was placed and then removed due to infection and he has declined placement of another, cholecystectomy, hernia repair, left knee replacement. MEDICATIONS: Listed as in the chart. ALLERGIES: VANCOMYCIN, SYMBICORT, DOXYCYCLINE, HYDROGEN PEROXIDE, LISINOPRIL, LYRICA, STATINS and PEROXIDE. SOCIAL HISTORY: He smoked in the past. He does not drink alcohol. REVIEW OF SYSTEMS: A 12-point review of systems is unremarkable except as noted above. PHYSICAL EXAMINATION: VITAL SIGNS: Blood pressure 125/60, pulse of 80. HEENT: PERRL. NECK: Supple. LUNGS: Chest reveals expiratory wheezing. CARDIAC: S1, S2 normal, without any S3, S4 or murmurs. ABDOMEN: Obese. Normal bowel sounds, no tenderness or organomegaly. EXTREMITIES: Revealed 2+ edema to the thigh. NEUROLOGIC: Grossly intact LABORATORY DATA: EKG revealed normal sinus rhythm with first-degree AV block, right bundle-branch block, possible left ventricular hypertrophy. Hemoglobin 11.1, hematocrit 33.2, white count 4200, platelets 92,000. Sodium 140, potassium 3.5, chloride 106, carbon dioxide 26, BUN 21, creatinine 0.81. BNP 1130.8, troponin I is 0.077. IMPRESSION: 1. Increased cough and green sputum, probable chronic obstructive pulmonary disease exacerbation. 2. Systolic heart failure. 3. History of coronary artery bypass grafting. 4. care home resident. 5. History of implantable cardioverter defibrillator placement and ultimately removed for infection and patient declines re-placement. 6. Hypertension. 7. Hypercholesterolemia. 8. Obstructive sleep apnea. 9. Nonsustained ventricular tachycardia, placed on amiodarone. 10. Chronic back pain. PLAN: The patient will be aggressively diuresed. He has received antibiotics, nebulizer treatments, steroids. I will continue to follow the patient with you. MY
[2017-06-12] MEDS: Furosemide 40 MG/4 ML VIAL SLOW IVP SCH ×2 (05:02→14:00)
[2017-06-12] MEDS: Enoxaparin Sodium 40 MG/0.4 ML SYRINGE SC SCH (07:49)
[2017-06-12] MEDS: Fenofibrate Nanocrystallized 145 MG TAB PO SCH (08:19)
[2017-06-12] MEDS: Aspirin 325 MG TAB PO SCH (08:19)
[2017-06-12] MEDS: Atorvastatin Calcium 10 MG TAB PO SCH (08:19)
[2017-06-12] MEDS: DULoxetine 30 MG CAP PO SCH ×2 (08:19→21:19)
[2017-06-12] MEDS: Ezetimibe 10 MG TAB PO SCH (08:19)
[2017-06-12] MEDS: Carvedilol 25 MG TAB PO SCH ×2 (08:19→16:58)
[2017-06-12] MEDS: Lidocaine 5% Patch TD SCH (08:19)
[2017-06-12] MEDS: Losartan 25 MG TAB PO SCH (08:19)
[2017-06-12] MEDS: Potassium Chloride 20 MEQ TAB PO SCH (08:19)
[2017-06-12] MEDS: Amiodarone 200 MG TAB PO SCH (08:20)
[2017-06-12] MEDS: guaiFENesin ER 600 MG TAB PO SCH ×2 (08:20→21:15)
[2017-06-12] MEDS: Mometasone/Formoterol 120 PUFF INHALER INH SCH ×2 (10:53→18:37)
[2017-06-12] MEDS: Lorazepam 1 MG TAB PO PRN (12:12)
--- NOTE | 2017-06-12 12:42 | PDOC.PN ---
- Subjective Encounter Start Date: 06/12/17 Encounter Start Time: 09:15 pt is on bipap, still has dyspnea, no fever Patient seen and examined. No overnight events - Objective MAR Reviewed: Yes Vital Signs & Weight: Vital Signs (12 hours) Temp Pulse Resp BP BP Pulse Ox 06/12/17 11:15 98.6 F 66 19 89/45 L 96 06/12/17 10:54 73 24 H 97 06/12/17 10:49 74 25 H 97 06/12/17 07:48 98.5 F 74 18 92 L 06/12/17 07:11 98.5 F 74 18 125/67 96 06/12/17 06:23 72 15 94 L 06/12/17 06:22 72 15 94 L 06/12/17 05:05 113/58 L 06/12/17 04:00 97.7 F 69 18 94/53 L 95 06/12/17 03:55 74 15 95 06/12/17 02:10 137/90 Weight Admit Weight 239 lb 6.4 oz Weight 229 lb I&O: 06/11/17 06/12/17 06/13/17 06:59 06:59 06:59 Intake Total 360 1512.7 Output Total 800 1800 Balance -440 -287.3 Result Diagrams: 06/11/17 04:15 06/11/17 04:15 EKG Reviewed by me: Yes Phys Exam - Physical Examination Constitutional: NAD on bipap HEENT: PERRLA, moist MMs, sclera anicteric Neck: no JVD, supple Respiratory: wheezing present coarse sound Cardiovascular: RRR, no significant murmur, no rub Gastrointestinal: soft, non-tender, no distention, positive bowel sounds Musculoskeletal: pulses present, edema present reduced edema Neurological: non-focal, normal sensation, moves all 4 limbs Lymphatic: no nodes Psychiatric: normal affect Skin: no rash, normal turgor Dx/Plan (1) Acute on chronic systolic (congestive) heart failure Code(s): I50.23 - ACUTE ON CHRONIC SYSTOLIC (CONGESTIVE) HEART FAILURE Status : Acute (2) Acute respiratory failure with hypoxia Code(s): J96.01 - ACUTE RESPIRATORY FAILURE WITH HYPOXIA Status: Acute (3) COPD exacerbation Code(s): J44.1 - CHRONIC OBSTRUCTIVE PULMONARY DISEASE W (ACUTE) EXACERBATION Status: Acute (4) Anxiety and depression Code(s): F41.9 - ANXIETY DISORDER, UNSPECIFIED; F32.9 - MAJOR DEPRESSIVE DISORDER, SINGLE EPISODE, UNSPECIFIED Status: Chronic (5) BPH (benign prostatic hyperplasia) Code(s): N40.0 - BENIGN PROSTATIC HYPERPLASIA WITHOUT LOWER URINRY TRACT SYMP Status: Chronic (6) CAD (coronary artery disease) Code(s): I25.10 - ATHSCL HEART DISEASE OF [place] CORONARY ARTERY W/O ANG PCTRS Status: Chronic Qualifiers: Coronary Disease-Associated Artery/Lesion type: [place] artery [place] vs. transplanted heart: [place] heart Associated angina: without angina Qualified Code(s): I25.10 - Atherosclerotic heart disease of [place] coronary artery without angina pectoris Comment: Known CAD, see above (7) Chronic respiratory failure with hypoxia Code(s): J96.11 - CHRONIC RESPIRATORY FAILURE WITH HYPOXIA Status: Chronic (8) Dyslipidemia Code(s): E78.5 - HYPERLIPIDEMIA, UNSPECIFIED Status: Chronic Comment: Continue Lipitor 10mg HS (9) GERD (gastroesophageal reflux disease) Code(s): K21.9 - GASTRO-ESOPHAGEAL REFLUX DISEASE WITHOUT ESOPHAGITIS Status: Chronic Qualifiers: Esophagitis presence: esophagitis presence not specified Qualified Code(s) : K21.9 - Gastro-esophageal reflux disease without esophagitis (10) Gout Code(s): M10.9 - GOUT, UNSPECIFIED Status: Chronic (11) Hypertension Code(s): I10 - ESSENTIAL (PRIMARY) HYPERTENSION Status: Chronic (12) Ischemic cardiomyopathy Code(s): I25.5 - ISCHEMIC CARDIOMYOPATHY Status: Chronic Comment: EF 25-30% , no current decompensation (13) NSVT (nonsustained ventricular tachycardia) Code(s): I47.2 - VENTRICULAR TACHYCARDIA Status: Chronic - Plan cont current plan of care, continue antibiotics, respiratory therapy * continue bipap * continue iv lasix * continue po levaquin * continue solumedrol and respiratory therapy * cardiology and pulmonary following * medication reviewed as below * symptomatic treatment * monitor in imcu. Review of Systems - Review of Systems Constitutional: weakness. negative: fever, chills, sweats, malaise, other ENT: negative: Ear Pain, Ear Discharge, Nose Pain, Nose Discharge, Nose Congestion, Mouth Pain, Mouth Swelling, Throat Pain, Throat Swelling, Other Respiratory: Cough, Shortness of Breath, SOB with Excertion. negative: Dry, Hemoptysis, Pleuritic Pain, Sputum, Wheezing Cardiovascular: orthopnea, edema. negative: chest pain, palpitations, paroxysmal nocturnal dyspnea, light headedness, other Gastrointestinal: negative: Nausea, Vomiting, Abdominal Pain, Diarrhea, Constipation, Melena, Hematochezia, Other Genitourinary: negative: Dysuria, Frequency, Incontinence, Hematuria, Retention , Other Musculoskeletal: negative: Neck Pain, Shoulder Pain, Arm Pain, Back Pain, Hand Pain, Leg Pain, Foot Pain, Other Skin: negative: Rash, Lesions, Sudhakar, Bruising, Other - Medications/Allergies Allergies/Adverse Reactions: Allergies Allergy/AdvReac Type Severity Reaction Status Date / Time vancomycin Allergy Severe Verified 04/19/17 20:35 budesonide [From Symbicort] Allergy Verified 04/19/17 20:35 doxycycline Allergy Verified 04/19/17 20:35 formoterol [From Symbicort] Allergy Verified 04/19/17 20:35 formoterol fumarate Allergy Verified 04/19/17 20:35 [From Symbicort] hydrogen peroxide Allergy Verified 04/19/17 20:35 lisinopril Allergy Verified 04/19/17 20:35 pregabalin [From Lyrica] Allergy Verified 04/19/17 20:35 [id number] Reductase Allergy emotional/d Verified 04/19/17 20:35 Inhibitor epressed peroxide Allergy topical/inf Uncoded 04/19/17 20:35 ection Medications: Current Medications Acetaminophen (Tylenol) 650 mg PO Q4H PRN PRN Reason: Headache/Fever or Pain Al Hydroxide/Mg Hydroxide (Maalox) 30 ml PO Q6H PRN PRN Reason: Heartburn or Indigestion Albuterol/Ipratropium (Duoneb) 3 ml NEB [id number] PRN PRN Reason: SOB &/or Wheezing Albuterol/Ipratropium (Duoneb) 3 ml NEB [id number] Last Admin: 06/12/17 10:49 Dose: 3 ml Amiodarone HCl (Cordarone) 200 mg PO DAILY [facility] Last Admin: 06/12/17 08:20 Dose: 200 mg Aspirin (Aspirin) 325 mg PO DAILY [facility] Last Admin: 06/12/17 08:19 Dose: 325 mg Atorvastatin Calcium (Lipitor) 10 mg PO DAILY [facility] Last Admin: 06/12/17 08:19 Dose: 10 mg Benzonatate (Tessalon) 100 mg PO Q4H PRN PRN Reason: Cough Bisacodyl (Dulcolax) 10 mg PO DAILYPRN PRN PRN Reason: Constipation Calcium Carbonate (Tums) 1,000 mg PO Q4H PRN PRN Reason: Heartburn or Indigestion Carvedilol (Coreg) 25 mg PO BID-[facility] Last Admin: 06/12/17 08:19 Dose: 25 mg Clonidine (Catapres) 0.1 mg PO Q4H PRN PRN Reason: Systolic BP > 160 Duloxetine HCl (Cymbalta) 30 mg PO BID [facility] Last Admin: 06/12/17 08:19 Dose: 30 mg Ezetimibe (Zetia) 10 mg PO DAILY [facility] Last Admin: 06/12/17 08:19 Dose: 10 mg Enoxaparin Sodium (Lovenox) 40 mg SC 0900 [facility] Last Admin: 06/12/17 07:49 Dose: Not Given Fenofibrate (Tricor) 145 mg PO DAILY [facility] Last Admin: 06/12/17 08:19 Dose: 145 mg Furosemide (Lasix) 40 mg SLOW IVP 0600,1400 [facility] Last Admin: 06/12/17 05:02 Dose: 40 mg Guaifenesin (Robitussin Sf) 200 mg PO Q4H PRN PRN Reason: Cough Guaifenesin (Mucinex) 1,200 mg PO Q12HR [facility] Last Admin: 06/12/17 08:20 Dose: 1,200 mg Hydralazine HCl (Apresoline) 10 mg SLOW IVP Q4H PRN PRN Reason: Systolic BP > 170 Isosorbide Mononitrate (Imdur Er) 30 mg PO DAILY [facility] Last Admin: 06/12/17 08:19 Dose: 30 mg Levofloxacin (Levaquin) 500 mg PO 1999 [facility] Last Admin: 06/11/17 21:08 Dose: 500 mg Lidocaine (Lidoderm 5% Patch) 1 patch TD DAILY [facility] Last Admin: 06/12/17 08:19 Dose: 1 patch Lorazepam (Ativan) 1 mg PO Q4H PRN PRN Reason: Anxiety/Agitation Last Admin: 06/12/17 12:12 Dose: 1 mg Losartan Potassium (Cozaar) 100 mg PO DAILY [facility] Last Admin: 06/12/17 08:19 Dose: 100 mg Methylprednisolone Sodium Succinate (Solu-Medrol) 20 mg IVP Q6HR [facility] Last Admin: 06/12/17 12:12 Dose: 20 mg Miscellaneous Medication (Lidocaine Patch Removal) 1 each TOP QPM [facility] Last Admin: 06/11/17 23:56 Dose: 1 each Mometasone Furoate/Formoterol Fumar (Dulera 200 Mcg/5 Mcg Inhaler) 2 puff INH BID-[facility] Last Admin: 06/12/17 10:53 Dose: Not Given Morphine Sulfate (Morphine) 2 mg IV Q4H PRN PRN Reason: Congestion Last Admin: 06/12/17 08:47 Dose: 2 mg Ondansetron HCl (Zofran) 4 mg IVP Q6H PRN PRN Reason: Nausea/Vomiting Last Admin: 06/11/17 23:59 Dose: 4 mg Potassium Chloride (K-Dur) 20 meq PO DAILY [facility] Last Admin: 06/12/17 08:19 Dose: 20 meq Ranolazine (Ranexa) 500 mg PO BID [facility] Last Admin: 06/12/17 08:19 Dose: 500 mg Senna (Senokot) 2 tab PO HSPRN PRN PRN Reason: Constipation Tramadol HCl (Ultram) 50 mg PO Q4H PRN PRN Reason: Moderate Pain (4-6) Last Admin: 06/11/17 02:11 Dose: 50 mg Trazodone HCl (Desyrel) 50 mg PO [facility] Last Admin: 06/11/17 21:09 Dose: 50 mg
--- NOTE | 2017-06-12 16:47 | PRG ---
DATE OF SERVICE: 06/12/2017 SERVICE: Pulmonary Medicine. INTERVAL HISTORY: The patient is doing fine from a respiratory standpoint. He is tolerating some lo nger BiPAP breaks. He denies any current chest pain, nausea, vomiting, or shortness of breath curren tly. He is a little thirsty. He is going to try taking a break from the BiPAP once again. PHYSICAL EXAMINATION: VITAL SIGNS: Afebrile, pulse 79, blood pressure 145/69, respirations 18, saturation 92% on 4 liters nasal cannula. GENERAL: The patient is awake and alert. No apparent distress. LUNGS: Decent air entry. Crackles are present. Rhonchi are also present, but clear with cough. HEART: Normal rate, regular. ABDOMEN: Soft, nontender, nondistended. Bowel sounds positive. MUSCULOSKELETAL: No cyanosis or clubbing. There is 1+ pitting in the bilateral lower extremities. NEUROLOGIC: Grossly nonfocal. LABORATORY DATA: WBC is 4.2, hemoglobin 11.1, platelets 92,000. Basic metabolic profile is also unr emarkable. Potassium 3.5. BNP 1130. ASSESSMENT: 1. Acute on chronic hypoxic respiratory failure. 2. Chronic obstructive pulmonary disease with acute exacerbation. 3. Acute on chronic systolic and diastolic heart failure. 4. Obstructive sleep apnea. 5. Deconditioning, severe. PLAN: We will drop the nebs off to q.6 hours. Potassium will be replaced. Laboratories will be rep eated tomorrow morning. We will continue to diurese the patient euvolemia while other supportive car e including antibiotics and steroids will be continued. Pulmonary Critical Care will continue to fol low. I think it would be best if the patient remains in this location for a couple more days. We wi ll work on mobilizing him the best that we can.
[2017-06-12] MEDS: traMADol HCl 50 MG TAB PO PRN (16:58)
[2017-06-12] MEDS: Lidocaine Patch Removal 1 EACH TOP SCH (21:15)
[2017-06-12] MEDS: traZODone HCl 50 MG TAB PO SCH (21:15)
[2017-06-13] MEDS: traMADol HCl 50 MG TAB PO PRN ×2 (03:43→10:00)
[2017-06-13 05:39] LABS: Anion Gap 15 mmol/L (10-20); BUN (Urea Nitrogen) 45 mg/dL (8.4-25.7); Calc. Creatinine Clearance 93 mL/min (70-130); Carbon Dioxide 31 mmol/L (23-31); Chloride 106 mmol/L (98-107); Estimated GFR-MDRD 67; Glucose 133 mg/dL (80-115); Magnesium 2.6 mg/dL (1.6-2.6); Potassium 4.6 mmol/L (3.5-5.1); Sodium 147 mmol/L (136-145)
[2017-06-13] MEDS: Furosemide 40 MG/4 ML VIAL SLOW IVP SCH ×2 (06:08→14:12)
[2017-06-13] MEDS: Mometasone/Formoterol 120 PUFF INHALER INH SCH ×2 (06:59→18:34)
[2017-06-13] MEDS: Losartan 25 MG TAB PO SCH (08:33)
[2017-06-13] MEDS: Aspirin 325 MG TAB PO SCH (08:33)
[2017-06-13] MEDS: Atorvastatin Calcium 10 MG TAB PO SCH (08:34)
[2017-06-13] MEDS: Carvedilol 25 MG TAB PO SCH ×2 (08:34→16:19)
[2017-06-13] MEDS: Ezetimibe 10 MG TAB PO SCH (08:34)
[2017-06-13] MEDS: Amiodarone 200 MG TAB PO SCH (08:34)
[2017-06-13] MEDS: Fenofibrate Nanocrystallized 145 MG TAB PO SCH (08:34)
[2017-06-13] MEDS: guaiFENesin ER 600 MG TAB PO SCH ×2 (08:34→21:00)
[2017-06-13] MEDS: Potassium Chloride 20 MEQ TAB PO SCH (08:34)
[2017-06-13] MEDS: DULoxetine 30 MG CAP PO SCH ×2 (08:35→21:04)
[2017-06-13] MEDS: Enoxaparin Sodium 40 MG/0.4 ML SYRINGE SC SCH (08:36)
[2017-06-13] MEDS: Lidocaine 5% Patch TD SCH (09:51)
--- NOTE | 2017-06-13 10:51 | PDOC.PN ---
- Subjective Encounter Start Date: 06/13/17 Encounter Start Time: 10:49 Patient seen and examined, states he'd like to see the speech therapist and that he's thirsty, otherwise no new issues or complaints in the last 24 hours. No family at bedside, all questions answered. - Objective Vital Signs & Weight: Vital Signs (12 hours) Temp Pulse Resp BP BP Pulse Ox 06/13/17 07:36 96.9 F L 90 36 H 168/82 H 90 L 06/13/17 07:02 90 18 06/13/17 04:00 89 27 H 168/98 H 94 L 06/13/17 00:39 76 22 H 99 06/13/17 00:38 75 18 99 06/13/17 00:00 97.0 F L 72 18 93/48 L 97 Weight Admit Weight 239 lb 6.4 oz Weight 219 lb 4.8 oz I&O: 06/12/17 06/13/17 06/14/17 06:59 06:59 06:59 Intake Total 1512.7 370 Output Total 1800 600 Balance -287.3 -230 Result Diagrams: 06/11/17 04:15 06/13/17 03:23 Phys Exam - Physical Examination mild respiratory distress HEENT: PERRLA, sclera anicteric Neck: no nodes, no JVD, supple Respiratory: wheezing present tachycardic HR, 2/6 CASTRO Gastrointestinal: soft, non-tender Musculoskeletal: pulses present, edema present (trace) Dx/Plan (1) Acute on chronic systolic (congestive) heart failure Code(s): I50.23 - ACUTE ON CHRONIC SYSTOLIC (CONGESTIVE) HEART FAILURE Status : Acute (2) Acute respiratory failure with hypoxia Code(s): J96.01 - ACUTE RESPIRATORY FAILURE WITH HYPOXIA Status: Acute (3) COPD exacerbation Code(s): J44.1 - CHRONIC OBSTRUCTIVE PULMONARY DISEASE W (ACUTE) EXACERBATION Status: Acute (4) Anxiety and depression Code(s): F41.9 - ANXIETY DISORDER, UNSPECIFIED; F32.9 - MAJOR DEPRESSIVE DISORDER, SINGLE EPISODE, UNSPECIFIED Status: Chronic (5) CAD (coronary artery disease) Code(s): I25.10 - ATHSCL HEART DISEASE OF [place] CORONARY ARTERY W/O ANG PCTRS Status: Chronic Qualifiers: Coronary Disease-Associated Artery/Lesion type: [place] artery [place] vs. transplanted heart: [place] heart Associated angina: without angina Qualified Code(s): I25.10 - Atherosclerotic heart disease of [place] coronary artery without angina pectoris Comment: Known CAD, see above (6) Dyslipidemia Code(s): E78.5 - HYPERLIPIDEMIA, UNSPECIFIED Status: Chronic Comment: Continue Lipitor 10mg HS (7) Hypertension Code(s): I10 - ESSENTIAL (PRIMARY) HYPERTENSION Status: Chronic - Plan * continue diuresing for now * bipap at bedside * speech therapy evaluation pending * BP stable * labs in AM * further management per subspecialists * case and plan d/w patient at length, he understands and agrees with this plan
--- NOTE | 2017-06-13 15:23 | PRG ---
DATE OF SERVICE: 06/13/2017 SERVICE: Pulmonary Medicine. INTERVAL HISTORY: The patient is doing fine from cardiovascular and respiratory standpoint. He carlee es any chest pain. He was a little agitated this morning once again. That being said, this afternoo n he is a little bit more sedated. He wakes up comfortably and follows all commands. Otherwise, the re has been no interval change to his condition. PHYSICAL EXAMINATION: VITAL SIGNS: Afebrile, pulse 85, blood pressure 146/74, respirations 25, saturation 99% on 4 liters nasal cannula. GENERAL: Patient is awake and alert, in no apparent distress. LUNGS: Excellent air entry. There is no prolonged expiratory phase. Crackles are resolved. HEART: Normal rate, regular. ABDOMEN: Soft, nontender, nondistended. Bowel sounds are positive. MUSCULOSKELETAL: No cyanosis or clubbing. There is trace pitting in the bilateral lower extremities . NEUROLOGIC: Grossly nonfocal. LABORATORY DATA: WBC 4.2, hemoglobin 11.1, platelets 92,000. Basic metabolic profile is significant for sodium that up trending to 147, BUN and creatinine are up trending. Magnesium 2.6. ASSESSMENT: 1. Acute on chronic hypoxic respiratory failure. 2. Chronic obstructive pulmonary disease with acute exacerbation. 3. Acute on chronic systolic and diastolic heart failure. 4. Obstructive sleep apnea. 5. Deconditioning. 6. Prerenal azotemia. PLAN: We will back off on his Lasix. We will continue antibiotics, nebulized medications, and stero ids. I will add some free water. Pulmonary or Critical Care will continue to follow, but from my pe rspective, he is getting close to being transitioned out of the [facility]. We will continue working on mo bilizing him.
[2017-06-13] MEDS: Dextrose 5% in Water 1,000 ML IV SCH (15:47)
[2017-06-13] MEDS ORDERED: Spironolactone 25 MG TAB PO SCH (16:00)
[2017-06-13] MEDS: traZODone HCl 50 MG TAB PO SCH (21:00)
[2017-06-13] MEDS: Lidocaine Patch Removal 1 EACH TOP SCH (21:04)
[2017-06-14 05:49] LABS: Anion Gap 14 mmol/L (10-20); BUN (Urea Nitrogen) 48 mg/dL (8.4-25.7); Calc. Creatinine Clearance 81 mL/min (70-130); Carbon Dioxide 33 mmol/L (23-31); Chloride 104 mmol/L (98-107); Estimated GFR-MDRD 60; Glucose 147 mg/dL (80-115); Potassium 4.4 mmol/L (3.5-5.1); Sodium 147 mmol/L (136-145)
[2017-06-14] MEDS: traMADol HCl 50 MG TAB PO PRN ×3 (05:53→17:04)
[2017-06-14] MEDS: Furosemide 40 MG/4 ML VIAL SLOW IVP SCH (05:53)
[2017-06-14] MEDS: Dextrose 5% in Water 1,000 ML IV SCH ×3 (06:01→22:08)
[2017-06-14] MEDS: Mometasone/Formoterol 120 PUFF INHALER INH SCH ×2 (06:30→18:28)
[2017-06-14] MEDS: Potassium Chloride 20 MEQ TAB PO SCH (07:47)
[2017-06-14] MEDS: Ezetimibe 10 MG TAB PO SCH (07:47)
[2017-06-14] MEDS: Spironolactone 25 MG TAB PO SCH (07:47)
[2017-06-14] MEDS: Enoxaparin Sodium 40 MG/0.4 ML SYRINGE SC SCH (07:48)
[2017-06-14] MEDS: Aspirin 325 MG TAB PO SCH (07:48)
[2017-06-14] MEDS: DULoxetine 30 MG CAP PO SCH ×2 (07:48→21:30)
[2017-06-14] MEDS: Fenofibrate Nanocrystallized 145 MG TAB PO SCH (07:49)
[2017-06-14] MEDS: Losartan 25 MG TAB PO SCH (07:49)
[2017-06-14] MEDS: guaiFENesin ER 600 MG TAB PO SCH ×2 (07:50→21:30)
[2017-06-14] MEDS: Amiodarone 200 MG TAB PO SCH (07:50)
[2017-06-14] MEDS: Atorvastatin Calcium 10 MG TAB PO SCH (07:50)
[2017-06-14] MEDS: Carvedilol 25 MG TAB PO SCH ×2 (08:05→17:07)
--- NOTE | 2017-06-14 10:27 | PDOC.PN ---
- Subjective Encounter Start Date: 06/14/17 Encounter Start Time: 10:25 Patient seen and examined, states he is doing ok, no new issues, no family at bedside. - Objective Vital Signs & Weight: Vital Signs (12 hours) Temp Pulse Resp BP BP Pulse Ox 06/14/17 07:37 98.4 F 88 33 H 164/85 H 95 06/14/17 06:31 90 20 06/14/17 04:06 99.4 F 83 22 H 144/75 H 95 06/14/17 03:52 95 06/14/17 00:42 75 25 H 100 06/14/17 00:41 73 25 H 100 06/14/17 00:09 97.5 F L 71 25 H 92/45 L 99 06/14/17 00:00 100 Weight Admit Weight 239 lb 6.4 oz Weight 221 lb I&O: 06/13/17 06/14/17 06/15/17 06:59 06:59 06:59 Intake Total 370 1725 Output Total 600 3075 Balance -230 -1350 Result Diagrams: 06/11/17 04:15 06/14/17 05:13 Phys Exam - Physical Examination Constitutional: NAD HEENT: PERRLA, moist MMs, sclera anicteric Neck: no nodes, no JVD, supple coarse breath sounds Cardiovascular: RRR 2/6 CASTRO Gastrointestinal: soft, non-tender, no distention Musculoskeletal: pulses present, edema present (trace) Dx/Plan (1) Acute on chronic systolic (congestive) heart failure Code(s): I50.23 - ACUTE ON CHRONIC SYSTOLIC (CONGESTIVE) HEART FAILURE Status : Acute (2) Acute respiratory failure with hypoxia Code(s): J96.01 - ACUTE RESPIRATORY FAILURE WITH HYPOXIA Status: Acute (3) COPD exacerbation Code(s): J44.1 - CHRONIC OBSTRUCTIVE PULMONARY DISEASE W (ACUTE) EXACERBATION Status: Acute (4) Anxiety and depression Code(s): F41.9 - ANXIETY DISORDER, UNSPECIFIED; F32.9 - MAJOR DEPRESSIVE DISORDER, SINGLE EPISODE, UNSPECIFIED Status: Chronic (5) CAD (coronary artery disease) Code(s): I25.10 - ATHSCL HEART DISEASE OF [place] CORONARY ARTERY W/O ANG PCTRS Status: Chronic Qualifiers: Coronary Disease-Associated Artery/Lesion type: [place] artery [place] vs. transplanted heart: [place] heart Associated angina: without angina Qualified Code(s): I25.10 - Atherosclerotic heart disease of [place] coronary artery without angina pectoris Comment: Known CAD, see above (6) Dyslipidemia Code(s): E78.5 - HYPERLIPIDEMIA, UNSPECIFIED Status: Chronic Comment: Continue Lipitor 10mg HS (7) Hypertension Code(s): I10 - ESSENTIAL (PRIMARY) HYPERTENSION Status: Chronic - Plan * diet downgraded after discussion with speech therapy as patient is not able to swallow very well * pulmonary following for bipap needs * will monitor over the next 24-48hrs for any improvement on thickened liquids, otherwise patient may need to have further work up for dysphagia * continue all other plans of care with no changes for now
--- NOTE | 2017-06-14 15:56 | PRG ---
DATE OF SERVICE: 06/14/2017 SERVICE: Pulmonary Medicine. INTERVAL HISTORY: The patient is doing really fine from a respiratory standpoint. That being said, he remains a little bit belligerent. He cannot provide any additional elements of the history. Curr ently, he is on BiPAP and sleeping comfortably. PHYSICAL EXAMINATION: VITAL SIGNS: Afebrile with a T-max of 99.3, pulse 73, blood pressure 132/64, respirations 20, satura tion 94% on 4 liters nasal cannula. On BiPAP at 27% FiO2, his saturations are 98%. HEENT: Normocephalic, atraumatic. Sclerae are white, conjunctivae pink. Oral and nasal mucosa is m oist without lesions. LUNGS: Decent air entry. There is no prolonged expiratory phase, wheezing, rhonchi, or crackles pre sent. HEART: Normal rate, regular. ABDOMEN: Soft, nontender, nondistended. Bowel sounds are positive. MUSCULOSKELETAL: No cyanosis or clubbing. There is trace pitting in the bilateral lower extremities . NEUROLOGIC: Grossly nonfocal. LABORATORY DATA: Sodium 147, bicarbonate 33. BUN 48. Creatinine continues to trend upward to 1.19. Basic metabolic profile is otherwise unremarkable. ASSESSMENT: 1. Acute on chronic hypoxic respiratory failure. 2. Chronic obstructive pulmonary disease with acute exacerbation. 3. Acute on chronic systolic and diastolic heart failure. 4. Obstructive sleep apnea. 5. Deconditioning. 6. Prerenal azotemia, improving. PLAN: I will continue our free water, but I will increase the rate to 100 mL per hour. We will cont inue to follow his sodium through time. If he develops increasing lower extremity swelling, we will need to provide him with a couple doses of Lasix. Mobilization efforts will continue, though the pat ient is quite resistant to physical therapy.
[2017-06-14] MEDS: Ziprasidone 20 MG VIAL IM PRN (17:04)
[2017-06-14] MEDS: Lidocaine 5% Patch TD SCH (17:43)
[2017-06-14] MEDS: traZODone HCl 50 MG TAB PO SCH (21:31)
[2017-06-14] MEDS: Lidocaine Patch Removal 1 EACH TOP SCH (21:44)
[2017-06-15] MEDS: Ziprasidone 20 MG VIAL IM PRN (01:15)
[2017-06-15 06:05] LABS: Band 2 % (5-11); Hemoglobin 10.8 g/dL (14.0-18.0); Lymphocytes 20 % (21-51); MDiff Complete? YES; Mean Corpuscular HGB CONC 32.6 g/dL (32.0-36.0); Mean Corpuscular Hemoglobin 32.7 pg (27.0-31.0); Monocytes 6 % (0-10); Neutrophil 72 % (42-75); PLT Morphology Comment Appears Decreased; Platelet Count 99 thou/uL (130-400); RBC Distribution Width 13.1 % (11.5-14.5); Red Blood Cell (RBC) Count 3.31 mill/uL (4.70-6.10); White Blood Cell (WBC) Count 5.4 thou/uL (4.8-10.8)
[2017-06-15] MEDS: Furosemide 40 MG/4 ML VIAL SLOW IVP SCH (06:17)
[2017-06-15 06:25] LABS: Anion Gap 11 mmol/L (10-20); BUN (Urea Nitrogen) 36 mg/dL (8.4-25.7); Calc. Creatinine Clearance 105 mL/min (70-130); Calcium 9.3 mg/dL (7.8-10.44); Carbon Dioxide 35 mmol/L (23-31); Chloride 104 mmol/L (98-107); Estimated GFR-MDRD 80; Glucose 111 mg/dL (80-115); Potassium 3.5 mmol/L (3.5-5.1); Sodium 146 mmol/L (136-145)
[2017-06-15] MEDS: Mometasone/Formoterol 120 PUFF INHALER INH SCH ×2 (07:31→18:23)
[2017-06-15] MEDS: Dextrose 5% in Water 1,000 ML IV SCH (08:14)
[2017-06-15] MEDS: traMADol HCl 50 MG TAB PO PRN (08:15)
[2017-06-15] MEDS: DULoxetine 30 MG CAP PO SCH ×2 (08:15→20:54)
[2017-06-15] MEDS: Ezetimibe 10 MG TAB PO SCH (08:16)
[2017-06-15] MEDS: Spironolactone 25 MG TAB PO SCH (08:16)
[2017-06-15] MEDS: Potassium Chloride 20 MEQ TAB PO SCH (08:17)
[2017-06-15] MEDS: Enoxaparin Sodium 40 MG/0.4 ML SYRINGE SC SCH (08:17)
[2017-06-15] MEDS: Losartan 25 MG TAB PO SCH (08:18)
[2017-06-15] MEDS: Aspirin 325 MG TAB PO SCH (08:19)
[2017-06-15] MEDS: Fenofibrate Nanocrystallized 145 MG TAB PO SCH (08:19)
[2017-06-15] MEDS: Carvedilol 25 MG TAB PO SCH ×2 (08:19→17:39)
[2017-06-15] MEDS: Atorvastatin Calcium 10 MG TAB PO SCH (08:20)
[2017-06-15] MEDS: Amiodarone 200 MG TAB PO SCH (08:20)
[2017-06-15] MEDS: guaiFENesin ER 600 MG TAB PO SCH ×2 (08:20→20:55)
[2017-06-15] MEDS ORDERED: predniSONE 20 MG TAB PO SCH (10:15)
--- NOTE | 2017-06-15 10:20 | PRG ---
DATE OF SERVICE: 06/15/2017 This morning remains in the IMCU, somewhat confused. The nurses said there were multiple times he ramos s tried to get out of bed, banging his head on the side rail. He states he is having some difficulty breathing, but no chest pain or chills. His sats have been 95% on supplemental oxygen. Please note he has refused to wear his BiPAP as advis ed at night time. PHYSICAL EXAMINATION: VITAL SIGNS: Pulse 80, blood pressure 100/80, respirations 18. CHEST: Chest reveals extensive rhonchi and crackles bilaterally. CARDIAC: Normal S1, S2, no gallops. ABDOMEN: Soft, no masses. His I's and O's over the last 24 hours have been good, 175 in, 3075 out. His most recent lab, his white count 5000, H&H 10 and 30, platelet count is low at 99, creatinine is normal. BNP is pending. IMPRESSION: 1. Respiratory failure. 2. Sleep apnea. 3. Chronic obstructive pulmonary disease. 4. Encephalopathy. 5. Azotemia. PLAN: He was switched to oral medication. If he remains stable, he can be transferred later to the monitored bed. His long-term prognosis is grave, but his family wants everything to be done. Plan is to go back to the half-way if he stabilizes. Discuss with his when she arrives.
[2017-06-15] MEDS ORDERED: Furosemide 40 MG TAB PO SCH (10:30)
[2017-06-15] MEDS: Lidocaine 5% Patch TD SCH (10:30)
[2017-06-15] MEDS ORDERED: Metoprolol Tartrate 50 MG TAB PO SCH (10:30)
[2017-06-15] MEDS: Haloperidol Lactate 5 MG/ML VIAL SLOW IVP PRN ×2 (10:51→15:15)
[2017-06-15] MEDS: Lorazepam 0.5 MG TAB PO PRN ×2 (10:51→15:15)
--- NOTE | 2017-06-15 12:01 | RAD ---
AP CHEST: Indication: CHF. Comparison: 06-10-17 FINDINGS: There is cardiomegaly with pulmonary vascular congestion that is worsened since the prior exam. There is a small left pleural effusion and a tiny right pleural effusion. Osseous structures are similar. IMPRESSION: Worsening CHF. POS: [facility]
--- NOTE | 2017-06-15 16:55 | PDOC.PN ---
- Subjective Encounter Start Date: 06/15/17 Encounter Start Time: 16:40 Subjective: f/u for resp failure on BiPAP intermittently. No new issues reported. - Objective MAR Reviewed: Yes Vital Signs & Weight: Vital Signs (12 hours) Temp Pulse Pulse Pulse Resp BP BP 06/15/17 13:20 61 19 06/15/17 13:18 65 19 06/15/17 11:41 64 19 06/15/17 11:29 19 06/15/17 08:54 97.0 F L 74 19 06/15/17 08:39 74 74 172/87 H 148/71 H 06/15/17 08:11 97.0 F L 74 19 06/15/17 08:05 98.8 F 74 24 H 06/15/17 07:30 72 16 BP BP Pulse Ox 06/15/17 13:20 99 06/15/17 13:18 99 06/15/17 11:41 125/62 99 06/15/17 11:29 99 06/15/17 08:54 97 06/15/17 08:39 06/15/17 08:11 148/71 H 93 L 06/15/17 08:05 155/74 H 06/15/17 07:30 98 Weight Admit Weight 239 lb 6.4 oz Weight 223 lb 1.6 oz I&O: 06/14/17 06/15/17 06/16/17 06:59 06:59 06:59 Intake Total 1725 2830 480 Output Total 3075 1550 1400 Balance -1350 1280 -920 Result Diagrams: 06/15/17 04:01 06/15/17 04:01 Radiology Reviewed by me: Yes (PCXR - + edema bilat) EKG Reviewed by me: Yes (Tele - SR) Phys Exam - Physical Examination Constitutional: NAD HEENT: PERRLA, oral pharynx no lesions Neck: no JVD, supple diminished in bases, basilar crackles Cardiovascular: RRR Gastrointestinal: soft, non-tender, no distention, positive bowel sounds Musculoskeletal: pulses present Neurological: normal sensation, moves all 4 limbs Skin: normal turgor, cap refill <2 seconds Dx/Plan (1) Acute on chronic systolic (congestive) heart failure Code(s): I50.23 - ACUTE ON CHRONIC SYSTOLIC (CONGESTIVE) HEART FAILURE Status : Acute Comment: EF 25-30%, continue Lasix 40mg po daily, supportive mgmt (2) Acute respiratory failure with hypoxia Code(s): J96.01 - ACUTE RESPIRATORY FAILURE WITH HYPOXIA Status: Acute (3) COPD exacerbation Code(s): J44.1 - CHRONIC OBSTRUCTIVE PULMONARY DISEASE W (ACUTE) EXACERBATION Status: Acute Comment: Intermittent BiPAP, continue Prednisone, Duonebs and Levaqin (4) Physical deconditioning Code(s): R53.81 - OTHER MALAISE Status: Chronic Comment: PT for mobilization (5) CAD (coronary artery disease) Code(s): I25.10 - ATHSCL HEART DISEASE OF [place] CORONARY ARTERY W/O ANG PCTRS Status: Chronic Qualifiers: Coronary Disease-Associated Artery/Lesion type: [place] artery [place] vs. transplanted heart: [place] heart Associated angina: without angina Qualified Code(s): I25.10 - Atherosclerotic heart disease of [place] coronary artery without angina pectoris Comment: Chronic CAD, compensated, continue ASA, Lipitor, Ranexa - Plan continue antibiotics, PT/OT, vp digital marketing social media and crm, speech therapy, respiratory therapy, DVT proph w/SCDs Stable currently -: Continue pulmonary support -: Duonebs, Levaquin, Prednisone -: PT for mobilization -: AM lab: BMP * .
[2017-06-15] MEDS: traZODone HCl 50 MG TAB PO SCH (20:56)
[2017-06-15] MEDS: Lidocaine Patch Removal 1 EACH TOP SCH (20:56)
[2017-06-16 05:03] LABS: Anion Gap 11 mmol/L (10-20); BUN (Urea Nitrogen) 26 mg/dL (8.4-25.7); Calc. Creatinine Clearance 117 mL/min (70-130); Calcium 9.4 mg/dL (7.8-10.44); Carbon Dioxide 35 mmol/L (23-31); Chloride 103 mmol/L (98-107); Estimated GFR-MDRD 90; Glucose 105 mg/dL (80-115); Potassium 3.2 mmol/L (3.5-5.1); Sodium 146 mmol/L (136-145)
[2017-06-16] MEDS: Lorazepam 0.5 MG TAB PO PRN ×2 (05:44→08:20)
[2017-06-16] MEDS: Mometasone/Formoterol 120 PUFF INHALER INH SCH ×2 (07:29→18:19)
[2017-06-16] MEDS: Enoxaparin Sodium 40 MG/0.4 ML SYRINGE SC SCH (08:17)
[2017-06-16] MEDS: Losartan 25 MG TAB PO SCH (08:17)
[2017-06-16] MEDS: Haloperidol Lactate 5 MG/ML VIAL SLOW IVP PRN ×2 (08:17→12:06)
[2017-06-16] MEDS: Lidocaine 5% Patch TD SCH (08:17)
[2017-06-16] MEDS: Amiodarone 200 MG TAB PO SCH (08:18)
[2017-06-16] MEDS: Ezetimibe 10 MG TAB PO SCH (08:18)
[2017-06-16] MEDS: Atorvastatin Calcium 10 MG TAB PO SCH (08:18)
[2017-06-16] MEDS: Fenofibrate Nanocrystallized 145 MG TAB PO SCH (08:18)
[2017-06-16] MEDS: traMADol HCl 50 MG TAB PO PRN (08:18)
[2017-06-16] MEDS: Potassium Chloride 20 MEQ TAB PO SCH (08:18)
[2017-06-16] MEDS: DULoxetine 30 MG CAP PO SCH ×2 (08:18→20:31)
[2017-06-16] MEDS: guaiFENesin ER 600 MG TAB PO SCH ×2 (08:20→20:31)
[2017-06-16] MEDS: Spironolactone 25 MG TAB PO SCH (08:20)
[2017-06-16] MEDS: Carvedilol 25 MG TAB PO SCH ×2 (08:20→17:54)
[2017-06-16] MEDS: predniSONE 20 MG TAB PO SCH (08:20)
[2017-06-16] MEDS: Aspirin 325 MG TAB PO SCH (08:21)
[2017-06-16] MEDS: Furosemide 40 MG TAB PO SCH (08:21)
[2017-06-16] MEDS ORDERED: Potassium Chloride 20 MEQ TAB PO SCH (09:15)
[2017-06-16] MEDS: Lorazepam 1 MG TAB PO PRN (11:38)
--- NOTE | 2017-06-16 14:44 | PDOC.PN ---
- Subjective Encounter Start Date: 06/16/17 Encounter Start Time: 14:40 Subjective: f/u for acute resp failure on intermittent BiPAP, confusion tx with -: Levaquin, Dulera, Prednisone. Continues with agitation, calling out -: and restless. - Objective MAR Reviewed: Yes Vital Signs & Weight: Vital Signs (12 hours) Temp Pulse Pulse Resp BP BP BP 06/16/17 14:00 76 24 H 06/16/17 13:59 76 25 H 06/16/17 12:14 06/16/17 12:00 98.5 F 82 16 146/71 H 06/16/17 09:40 89 162/81 H 06/16/17 07:51 98.1 F 86 20 06/16/17 07:49 98.1 F 86 20 175/90 H 06/16/17 07:29 85 22 H 06/16/17 07:27 85 22 H 06/16/17 04:00 97.7 F 66 20 138/61 Pulse Ox Pulse Ox Pulse Ox 06/16/17 14:00 96 06/16/17 13:59 96 06/16/17 12:14 98 06/16/17 12:00 94 L 06/16/17 09:40 83 L 93 L 06/16/17 07:51 98 06/16/17 07:49 93 L 06/16/17 07:29 99 06/16/17 07:27 99 06/16/17 04:00 98 Weight Admit Weight 239 lb 6.4 oz Weight 224 lb 9.6 oz I&O: 06/15/17 06/16/17 06/17/17 06:59 06:59 06:59 Intake Total 2830 1560 240 Output Total 1550 2375 Balance 1280 -815 240 Result Diagrams: 06/15/17 04:01 06/16/17 04:25 EKG Reviewed by me: Yes (Tele - SR in 80's) Phys Exam - Physical Examination confused, mumbling, calling out HEENT: PERRLA, oral pharynx no lesions Neck: no JVD, supple coarse sounds bilat Cardiovascular: RRR Gastrointestinal: soft, non-tender, no distention, positive bowel sounds mild LE edema Musculoskeletal: pulses present Neurological: moves all 4 limbs confused, oriented to name Skin: normal turgor, cap refill <2 seconds Dx/Plan (1) Acute on chronic systolic (congestive) heart failure Code(s): I50.23 - ACUTE ON CHRONIC SYSTOLIC (CONGESTIVE) HEART FAILURE Status : Acute Comment: EF 25-30%, continue Lasix 40mg po daily, supportive mgmt (2) Acute respiratory failure with hypoxia Code(s): J96.01 - ACUTE RESPIRATORY FAILURE WITH HYPOXIA Status: Acute Comment: Intermittent BiPAP, O2 via NC for maintenance (3) COPD exacerbation Code(s): J44.1 - CHRONIC OBSTRUCTIVE PULMONARY DISEASE W (ACUTE) EXACERBATION Status: Acute Comment: Intermittent BiPAP, continue Prednisone, Duonebs and Levaqin (4) Physical deconditioning Code(s): R53.81 - OTHER [place] Status: Chronic Comment: PT for mobilization (5) CAD (coronary artery disease) Code(s): I25.10 - ATHSCL HEART DISEASE OF [place] CORONARY ARTERY W/O ANG PCTRS Status: Chronic Qualifiers: Coronary Disease-Associated Artery/Lesion type: [place] artery [place] vs. transplanted heart: [place] heart Associated angina: without angina Qualified Code(s): I25.10 - Atherosclerotic heart disease of [place] coronary artery without angina pectoris Comment: Chronic CAD, compensated, continue ASA, Lipitor, Ranexa (6) Acute metabolic encephalopathy Code(s): G93.41 - METABOLIC ENCEPHALOPATHY Status: Acute Comment: Intermittent worsening encephalopathy likely multifactorial, supportive mgmt, limit psychotropic medication exposure - Plan continue antibiotics, PT/OT, protective services social worker, speech therapy, respiratory therapy, DVT proph w/SCDs Continue intermittent BiPAP -: Lasix 40mg po daily -: Continue ASA 325mg daily -: Continue Prednisone 40mg daily -: May need to consider trach vs hospice care * AM lab: BMP
[2017-06-16 15:20] LABS: Base Excess (BEa) 12.3 mEq/L (0 (+/-) 2.5); CO2 Tension 48.3 mmHg (35.0-45.0); Calcium, Ionized 1.2 mmol/L (1.12-1.30); Hematocrit-ABG 36.2 % (42.0-52.0); Hemoglobin (Hb) 12.3 g/dL (14.0-18.0); Puncture Site LBA
[2017-06-16 15:21] LABS: ALV-art Gradient 71.135 (0-20)
--- NOTE | 2017-06-16 15:25 | PRG ---
DATE OF SERVICE: 06/16/2017 SUBJECTIVE: This morning, he remains agitated and confused. I spoke to his son at length this marilia piper stating that his dad has got multiple medical problems, intubated several times. He was agitated and confused. OBJECTIVE: VITAL SIGNS: His sats are 92% on 4 liters, on BiPAP he is pulling on his mask. He has multiple time s broken the nasal cannula. Temperature 98, pulse 76, respiration 20, blood pressure 175/90. CHEST: Reveals decreased breath sounds with prolonged expiration. CARDIAC: Normal S1, S2. No gallops. ABDOMEN: Soft, no masses. LABORATORY DATA: , potassium 3.2. IMPRESSION: Respiratory failure, congestive heart failure, chronic obstructive pulmonary disease, sl eep apnea, encephalopathy. PLAN: Family to make a decision about his code status. Palliative Care was consulted. Continue antipsychotic, antidepressant medications. We will follow.
[2017-06-16] MEDS: traZODone HCl 50 MG TAB PO SCH (20:32)
[2017-06-16] MEDS: Lidocaine Patch Removal 1 EACH TOP SCH (20:48)
[2017-06-17] MEDS: Lorazepam 1 MG TAB PO PRN (00:37)
[2017-06-17 04:36] LABS: Anion Gap 12 mmol/L (10-20); BUN (Urea Nitrogen) 27 mg/dL (8.4-25.7); Calc. Creatinine Clearance 118 mL/min (70-130); Calcium 9.6 mg/dL (7.8-10.44); Carbon Dioxide 35 mmol/L (23-31); Chloride 107 mmol/L (98-107); Estimated GFR-MDRD 90; Glucose 95 mg/dL (80-115); Potassium 3.1 mmol/L (3.5-5.1); Sodium 151 mmol/L (136-145)
[2017-06-17] MEDS: Mometasone/Formoterol 120 PUFF INHALER INH SCH ×2 (07:37→19:29)
--- NOTE | 2017-06-17 08:50 | PRG ---
DATE OF SERVICE: 06/17/2017 SUBJECTIVE: Mr. Andrew Lugo remains agitated, encephalopathic, confused, off and on BiPAP. OBJECTIVE: VITAL SIGNS: Respirations 40, temperature 98, pulse 100, blood pressure 170/91. His I's and O's hav e been 156 and 237. CHEST: Chest reveals extensive rhonchi and crackles. CARDIAC: Normal S1, S2. No gallops. ABDOMEN: Soft, no masses. LABORATORY DATA: Sodium 151, potassium 3.1, bicarbonate is 35. IMPRESSION: Respiratory failure, congestive heart failure, sleep apnea, chronic obstructive pulmonar y disease, supraventricular tachycardia, encephalopathy. PLAN: We had multiple encounters with Mr. Lguo yesterday, discussed with his family at length and spoke to his son, spoke to his about Palliative care was called and it was decided to make the p atient a DNR. They are not so sure about whether they wanted to do so or not. His pulmonary status is marginal. His main problem is his depressed EF. He is getting diuretics and sodium is 151. At this stage, continue aggressive neb treatments, supportive care, empiric antibiot ics. Obviously, family makes decision that he is going to be intubated, I am going to favor doing a trach on him and sent him to a long-term facility since he has had multiple recurrent admissions to [facility] with ongoing noncompliance with his medication in the CPAP. This is one of hour clinical care time.
[2017-06-17] MEDS: Carvedilol 25 MG TAB PO SCH ×2 (09:40→16:30)
[2017-06-17] MEDS: Furosemide 40 MG TAB PO SCH (09:40)
[2017-06-17] MEDS: Atorvastatin Calcium 10 MG TAB PO SCH (09:41)
[2017-06-17] MEDS: Amiodarone 200 MG TAB PO SCH (09:41)
[2017-06-17] MEDS: Spironolactone 25 MG TAB PO SCH (09:41)
[2017-06-17] MEDS: Aspirin 325 MG TAB PO SCH (09:41)
[2017-06-17] MEDS: predniSONE 20 MG TAB PO SCH (09:41)
[2017-06-17] MEDS: Enoxaparin Sodium 40 MG/0.4 ML SYRINGE SC SCH (09:42)
[2017-06-17] MEDS: DULoxetine 30 MG CAP PO SCH ×2 (09:42→20:45)
[2017-06-17] MEDS: Ezetimibe 10 MG TAB PO SCH (09:43)
[2017-06-17] MEDS: Fenofibrate Nanocrystallized 145 MG TAB PO SCH (09:43)
[2017-06-17] MEDS: Losartan 25 MG TAB PO SCH (09:43)
[2017-06-17] MEDS: guaiFENesin ER 600 MG TAB PO SCH ×2 (09:43→20:45)
[2017-06-17] MEDS: Lidocaine 5% Patch TD SCH (09:43)
[2017-06-17] MEDS: Potassium Chloride 20 MEQ TAB PO SCH (09:44)
--- NOTE | 2017-06-17 09:51 | RAD ---
CHEST ONE VIEW: History: CHF. Comparison: 06-16-17 FINDINGS: Cardiac silhouette is magnified and enlarged. Pulmonary vasculature remains engorged. Patchy bibasila r infiltrates have worsened somewhat since the previous exam. Mediastinum is midline with post-operat alina changes and aortic calcification. No evidence of pneumothorax. Prominent degenerative changes of the shoulders. IMPRESSION: 1. Increasing patchy bibasilar infiltrates may be related to worsening pulmonary vascular congestion. POS: [facility]
[2017-06-17] MEDS ORDERED: Potassium Chloride 20 MEQ TAB PO SCH (10:00)
--- NOTE | 2017-06-17 11:45 | PDOC.PN ---
- Subjective Encounter Start Date: 06/17/17 Encounter Start Time: 11:40 Subjective: f/u for resp failure on intermittent BiPAP. Remains confusded, agitated. -: Family wishing to pursue Hospice care. - Objective Resuscitation Status: Resuscitation Status DNR:Do Not Resuscitate MAR Reviewed: Yes Vital Signs & Weight: Vital Signs (12 hours) Temp Pulse Resp BP BP Pulse Ox 06/17/17 10:56 92 28 H 92 L 06/17/17 08:00 98.2 F 100 35 H 94 L 06/17/17 07:56 98.2 F 100 42 H 173/91 H 95 06/17/17 07:34 98 48 H 95 06/17/17 03:58 97.8 F 78 25 H 166/73 H 97 06/17/17 02:48 23 H 06/17/17 01:59 96 06/17/17 01:10 81 22 H 96 06/17/17 00:18 97.0 F L 61 38 H 114/47 L 95 Weight Admit Weight 239 lb 6.4 oz Weight 221 lb 4.8 oz I&O: 06/16/17 06/17/17 06/18/17 06:59 06:59 06:59 Intake Total 1560 1190 Output Total 2375 1350 Balance -815 -160 Result Diagrams: 06/15/17 04:01 06/17/17 03:43 Radiology Reviewed by me: Yes (PCXR - worsening patchy infiltrates) EKG Reviewed by me: Yes (Tele - SR in 80's) Phys Exam - Physical Examination lethargic, opens eyes brieflly to name dry oral mucosa Neck: no JVD, supple coarse sounds bilat, diminished in bases Cardiovascular: RRR Gastrointestinal: soft, non-tender, no distention, positive bowel sounds Musculoskeletal: pulses present, edema present R-sided weakness oriented x 1 Skin: normal turgor, cap refill <2 seconds Deviation from normal: Colon with tea colored urine Dx/Plan (1) Acute on chronic systolic (congestive) heart failure Code(s): I50.23 - ACUTE ON CHRONIC SYSTOLIC (CONGESTIVE) HEART FAILURE Status : Acute Comment: EF 25-30%, continue Lasix 40mg po daily, supportive mgmt (2) Acute respiratory failure with hypoxia Code(s): J96.01 - ACUTE RESPIRATORY FAILURE WITH HYPOXIA Status: Acute Comment: Intermittent BiPAP, O2 via NC for maintenance, worsening infiltrates despite therapy (3) COPD exacerbation Code(s): J44.1 - CHRONIC OBSTRUCTIVE PULMONARY DISEASE W (ACUTE) EXACERBATION Status: Acute Comment: Intermittent BiPAP, continue Prednisone, Duonebs and Levaqin (4) Physical deconditioning Code(s): R53.81 - OTHER [place] Status: Chronic Comment: PT for mobilization (5) CAD (coronary artery disease) Code(s): I25.10 - ATHSCL HEART DISEASE OF [place] CORONARY ARTERY W/O ANG PCTRS Status: Chronic Qualifiers: Coronary Disease-Associated Artery/Lesion type: [place] artery [place] vs. transplanted heart: [place] heart Associated angina: without angina Qualified Code(s): I25.10 - Atherosclerotic heart disease of [place] coronary artery without angina pectoris Comment: Chronic CAD, compensated, continue ASA, Lipitor, Ranexa (6) Acute metabolic encephalopathy Code(s): G93.41 - METABOLIC ENCEPHALOPATHY Status: Acute Comment: Intermittent worsening encephalopathy likely multifactorial, supportive mgmt - Plan plan discussed w/ family, social services manager, respiratory therapy, DVT proph w/SCDs Continues clinical decline despite medical therapy -: Discussed with family who are wishing to pursue Hospice -: Inpt Hospice evaluation today -: Continue Levaquin 500mg daily -: Continue pulmonary supportive measures with Duonebs, Prednisone * Convert to DNR status confirmed with and daughter * Likely transition to Inpt Hospice in 24h
[2017-06-17] MEDS ORDERED: Morphine 4 MG/ML VIAL SLOW IVP PRN (13:41)
[2017-06-17 15:57] VITALS: BMI 28.4
[2017-06-17] MEDS: Lorazepam 2 MG/ML VIAL SLOW IVP PRN (16:31)
[2017-06-17] MEDS: traZODone HCl 50 MG TAB PO SCH (20:45)
[2017-06-17] MEDS: Lidocaine Patch Removal 1 EACH TOP SCH (21:57)
[2017-06-18] MEDS: Lorazepam 2 MG/ML VIAL SLOW IVP PRN (00:02)
[2017-06-18] MEDS ORDERED: Acetaminophen 650 MG Suppository PR PRN (03:38)
[2017-06-18 04:27] LABS: BUN (Urea Nitrogen) 33 mg/dL (8.4-25.7); Calc. Creatinine Clearance 92 mL/min (70-130); Calcium 9.8 mg/dL (7.8-10.44); Estimated GFR-MDRD 69; Glucose 113 mg/dL (80-115)
[2017-06-18 04:37] LABS: Anion Gap 16 mmol/L (10-20); Carbon Dioxide 33 mmol/L (23-31); Chloride 109 mmol/L (98-107); Potassium 3.4 mmol/L (3.5-5.1); Sodium 155 mmol/L (136-145)
[2017-06-18] MEDS: Furosemide 40 MG TAB PO SCH (08:46)
[2017-06-18] MEDS: Mometasone/Formoterol 120 PUFF INHALER INH SCH (08:47)
[2017-06-18] MEDS: DULoxetine 30 MG CAP PO SCH (10:32)
[2017-06-18] MEDS: predniSONE 20 MG TAB PO SCH (10:32)
[2017-06-18] MEDS: Spironolactone 25 MG TAB PO SCH (10:32)
[2017-06-18] MEDS: Atorvastatin Calcium 10 MG TAB PO SCH (10:32)
[2017-06-18] MEDS: Aspirin 325 MG TAB PO SCH (10:32)
[2017-06-18] MEDS: Carvedilol 25 MG TAB PO SCH (10:32)
[2017-06-18] MEDS: Amiodarone 200 MG TAB PO SCH (10:32)
[2017-06-18] MEDS: Enoxaparin Sodium 40 MG/0.4 ML SYRINGE SC SCH (10:32)
[2017-06-18] MEDS: Ezetimibe 10 MG TAB PO SCH (10:32)
[2017-06-18] MEDS: Fenofibrate Nanocrystallized 145 MG TAB PO SCH (10:33)
[2017-06-18] MEDS: guaiFENesin ER 600 MG TAB PO SCH (10:33)
[2017-06-18] MEDS: Losartan 25 MG TAB PO SCH (10:33)
[2017-06-18] MEDS: Potassium Chloride 20 MEQ TAB PO SCH (10:33)
[2017-06-18] MEDS: Lidocaine 5% Patch TD SCH (10:38)
[2017-06-18 11:16] VITALS: BP 160/88; TEMP 100
--- NOTE | 2017-06-18 13:27 | PRG ---
DATE OF SERVICE: 06/18/2017 SUBJECTIVE: He was removed off the BiPAP yesterday. As per his family wishes, he was made a DNR. OBJECTIVE: VITAL SIGNS: Temperature 101, respirations 22, sats are 92% on 3 liters, blood pressure 182/90. GENERAL: He is lethargic, but arousable. CHEST: Bilateral rhonchi, crackles extensive. CARDIAC: Normal S1 and S2, no gallops. ABDOMEN: Soft. EXTREMITIES: Trace edema. NEUROLOGIC: He is encephalopathic. LABORATORY DATA: His sodium is 155, potassium is 3.4, BUN 32, creatinine 1. IMPRESSION: 1. Respiratory failure. 2. Chronic obstructive pulmonary disease. 3. Sleep apnea. 4. Congestive heart failure. 5. Electrolyte imbalance. PLAN: He is a DNR. We will try and get inpatient hospice on him. I am going to discontinue the Lasix for the time being. His long-term prognosis is grave consideri ng multiorgan failure. Await input from inpatient hospice.
--- NOTE | 2017-06-18 20:50 | DIS ---
DATE OF ADMISSION: 06/10/2017 DATE OF DISCHARGE: 06/18/2017 DISCHARGE DIAGNOSES: 1. Acute on chronic systolic congestive heart failure with ejection fraction of 25%. 2. Acute hypoxic respiratory failure with intermittent BiPAP. 3. Chronic obstructive pulmonary disease exacerbation. 4. Severe physical deconditioning. 5. Coronary artery disease, chronic. 6. Acute metabolic encephalopathy, multifactorial, persistent. 7. Hypernatremia. 8. Hypokalemia. CONSULTATIONS: Dr. Bernardo and Dr. Marrero with Pulmonology Service. Dr. Randhawa with Cardiology Serv ice. PERTINENT LABORATORY AND X-RAY FINDINGS: Sodium ranged between 140-155, potassium ranged between 3.1 -4.6, creatinine ranged between 0.84-1.19. Magnesium 2.6. BNP 1131. Troponin I ranged between 0.06 8-0.077. CBC showed a white blood cell count ranging between 4.2-7.6, hemoglobin ranged between 10.8 -11.8, platelet count ranged between 92-102. Portable chest x-ray dated 06/10/2017 showed pulmonary vascular prominence as well as interstitial prominence and perihilar infiltrate. Portable chest x-ra y dated 06/15/2017 showed increased pulmonary edema. Portable chest x-ray dated 06/17/2017 showed in creasing patchy bibasilar infiltrates and worsening vascular congestion. HOSPITAL COURSE: The patient was initially admitted with increasing shortness of breath with longsta nding history of acute on chronic hypoxic respiratory failure, coronary artery disease, and congestiv e heart failure with ejection fraction in the 25% range. The patient was placed on oxygen supplement ation as well as treated with IV Lasix in the emergency room. The patient was evaluated by the [facility] ology Service with recommendations for continuation of IV diuretic therapy and monitoring I's and O's . The patient also developed worsening respiratory failure due to the pulmonary edema and in the con text of chronic obstructive pulmonary disease. The patient was requiring intermittent BiPAP, noninva sive mechanical ventilation, due to compromised respiratory status and evaluated by the Pulmonology S shaina. The patient was placed on IV Solu-Medrol, bronchodilator therapy with DuoNebs, and IV antibi otics. The patient required continued and intermittent BiPAP, noninvasive mechanical ventilation, du e to sudden hypoxemia and associated altered mentation. The patient continued to clinically decline remaining lethargic and encephalopathic. Discussions were had with the patient's family regarding pa lliative care measures due to multiple comorbid status, multiple hospitalizations, and end-stage proc ess including congestive heart failure and respiratory state. The patient was evaluated for hospice after discussions with the family and has been approved for inpatient hospice care through [facility]. Family is agreeable to pursue inpatient hospice at this time and we will transfer on . I have examined the patient at the time of discharge and discussed disposition planning wi th the patient and family. DISCHARGE MEDICATIONS: 1. ProAir HFA 2 puffs inhaled q.4 hours p.r.n. 2. Amiodarone 200 mg p.o. daily. 3. Aspirin 325 mg p.o. daily. 4. Coreg 25 mg p.o. b.i.d. 5. Cymbalta 30 mg p.o. b.i.d. 6. Lasix 40 mg p.o. daily. 7. DuoNeb 3 mL nebulized q.4-6 hours p.r.n. 8. Levaquin 500 mg p.o. daily. 9. Viscous Lidocaine solution 15 mL swish and spit q.i.d. 10. Lidocaine patch 5%, 1 patch applied topically daily. 11. Dulera 200/5 mcg 2 puffs inhaled b.i.d. 12. Prednisone 40 mg p.o. q.a.m. 13. Tamsulosin 0.4 mg p.o. at bedtime. 14. Trazodone 50 mg p.o. at bedtime. FOLLOWUP: The patient will transfer to [facility] Inpatient Unit on 06/18/2017. CONDITION ON DISCHARGE: Guarded. DIET: Regular as tolerated. CODE STATUS: DO NOT RESUSCITATE. DISPOSITION: [facility]patient Facility on 06/18/2017. Total time preparing and coordinating discharge is 40 minutes.
== END 2017-06-18 16:28 | disposition hospice, inpatient (51) | DRG 291 ==
LOC: ERS 09:32 → ERHOLD 11:50 → 2NO 16:35 → OBSVTOIN 18:45 → IMCU/EMU 06-11 07:01
PROVIDERS: ADMIT Internal Medicine; ATTEND Internal Medicine
PROC: 5A09357 Assistance with Respiratory Ventilation, Less than 24 Consecutive Hours, Continuous Positive Airway Pressure (ICD-10-PCS; principal; 2017-06-11)
DX: I11.0 Hypertensive heart disease with heart failure (principal); G93.41 Metabolic encephalopathy; J96.21 Acute and chronic respiratory failure with hypoxia; E87.0 Hyperosmolality and hypernatremia; J44.1 Chronic obstructive pulmonary disease with (acute) exacerbation; I50.23 Acute on chronic systolic (congestive) heart failure; G47.33 Obstructive sleep apnea (adult) (pediatric); G20 Parkinson's disease; K21.9 Gastro-esophageal reflux disease without esophagitis; N40.0 Benign prostatic hyperplasia without lower urinary tract symptoms; E78.5 Hyperlipidemia, unspecified; Z51.5 Encounter for palliative care; Z66 Do not resuscitate; E87.6 Hypokalemia; I25.5 Ischemic cardiomyopathy; G89.29 Other chronic pain; M54.9 Dorsalgia, unspecified; F32.9 Major depressive disorder, single episode, unspecified; F41.9 Anxiety disorder, unspecified; Z87.891 Personal history of nicotine dependence; Z88.1 Allergy status to other antibiotic agents; Z88.8 Allergy status to other drugs, medicaments and biological substances; Z79.82 Long term (current) use of aspirin; Z79.899 Other long term (current) drug therapy; Z95.1 Presence of aortocoronary bypass graft; Z95.5 Presence of coronary angioplasty implant and graft; Z96.652 Presence of left artificial knee joint
CPT/HCPCS: 36415; 36416; 71045; 80048; 80053; 82553; 82805; 83735; 83880; 84484; 85007; 85025; 85027; 93005; 94640; 94660; 94760; 96374; G8978-GP-CM; G8979-GP-CK; G8996-GN-CK; G8996-GN-CM; G8997-GN-CI; G8997-GN-CJ; G8997-GN-CK; J0360; J1650; J1940; J2060; J2270; J2920; J2930; J7620